=== PATIENT | male | born 1935 | race Caucasian/White ===

== ENCOUNTER 2017-05-11 10:59 | Inpatient (IN) | payer OTHER ==
[~2017-05-11] VITALS: Ht 182.9 cm; Wt 94.2 kg
[~2017-05-11 10:59] MED LIST: ASPI81TA28 PO; ATOR-22 PO; GABA-113 PO; GARL1CAP PO; MELO7.5T5 PO
[2017-05-11] MEDS ORDERED: ASPIRIN 81 MG CHEW PO STA (11:28)
[2017-05-11] MEDS ORDERED: SODIUM CHLORIDE 0.9% 500ML 500 ML IV STA (11:28)
[2017-05-11 11:40] LABS: BASO % 0.3 %; BASO ABS # 0.02 K/uL (0-0.2); COMPLETE YES; HEMATOCRIT 51.4 % (42-52); IG% 0.2 %; LYMPH % 32.9 %; LYMPH ABS # 1.98 K/uL (1.2-3.4); MEAN CELL VOLUME 96.1 fL (80-100); MEAN CORPUSCULAR HEMOGLOBIN 33.3 pg (25-34); MEAN CORPUSCULAR HGB CONC 34.6 g/dl (32-36); MEAN PLATELET VOLUME 9.7 fL (7.4-10.4); MONO % 11.8 %; NEUT % 51.8 %; PLATELET COUNT 154 K/uL (130-400); RED BLOOD COUNT 5.35 M/uL (4.7-6.1); WHITE BLOOD COUNT 6.02 K/uL (4.8-10.8)
--- NOTE | 2017-05-11 11:51 | DIAGNOSTIC IMAGING REPORT ---
CHEST ONE VIEW PORTABLE CLINICAL HISTORY: Chest Pain dyspnea COMPARISON STUDY: No previous studies for comparison. FINDINGS: stent within the thoracic aorta. Lungs are considered clear. Diaphragms are smooth. Mild emphysematous change. IMPRESSION: Mild emphysematous change. No acute process. The above report was generated using voice recognition software. It may contain grammatical, syntax or spelling errors. Electronically signed by: Jad Galaviz M.D. 05/11/2017 11:49 AM Dictated Date/Time: 05/11/2017 11:48 AM
[2017-05-11] MEDS ORDERED: DILTIAZEM BOLUS / DRIP IV STA (11:58)
[2017-05-11 11:59] LABS: BLOOD UREA NITROGEN 10 mg/dl (7-18); BUN/CREATININE RATIO 11.7 (10-20); CALCIUM 9.3 mg/dl (8.5-10.1); CARBON DIOXIDE 27 mmol/L (21-32); CHLORIDE 107 mmol/L (98-107); CREATININE 0.86 mg/dl (0.60-1.40); GLUCOSE 124 mg/dl (70-99); POTASSIUM 4.1 mmol/L (3.5-5.1); SODIUM 140 mmol/L (136-145)
[2017-05-11 12:04] LABS: CKMB/CK RATIO 3.1 (0-3.0)
[2017-05-11] MEDS ORDERED: PANT40TA PO (12:04)
[2017-05-11] MEDS ORDERED: DILTIAZEM (12:05)
[2017-05-11] MEDS ORDERED: HEPARIN 25000 UNIT/500 ML D5W ONE (12:32)
[2017-05-11] MEDS ORDERED: HEPARIN SOD 5000 UNIT/0.5 ML CARP ONE (12:32)
[2017-05-11] MEDS ORDERED: DILTIAZEM HCL 5 MG/ML 5 ML VIAL ONE (12:33)
[2017-05-11] MEDS ORDERED: DOCU-94 PO (12:47)
[2017-05-11] MEDS ORDERED: MRLP17X PO (12:47)
[2017-05-11] MEDS ORDERED: DILT120C51 PO (12:47)
[2017-05-11] MEDS ORDERED: GARL1TAB12 PO (12:47)
[2017-05-11] MEDS ORDERED: SOTALOL HCL 80 MG TAB PO STA (12:50)
[2017-05-11 13:41] LABS: PARTIAL THROMBOPLASTIN RATIO 1.1; PROTHROMBIN TIME (PATIENT) 10.9 SECONDS (9.0-12.0)
--- NOTE | 2017-05-11 13:56 | History and Physical ---
History & Physical Date & Time of Service: May 11, 2017 at 13:27 Chief Complaint: Flutter Heart Primary Care Physician: Estiven Salcido D.O. History of Present Illness Source: patient, clinic records This is an 81 y/o male with PMH of thoracic aortic aneurysm s/p repair June 2016, mild nonobstructive coronary atherosclerosis on cardiac cath 2015, recent atrial fibrillation, and other problems listed below who was sent to the ED by Dr. Nava for atrial flutter with RVR. Patient was recently in [place] ER and transferred to [facility] May 02, 2017 for atrial flutter with RVR which spontaneously converted to sinus rhythm on IV diltiazem. Per cardiology note, echo at [facility] May 02, 2017 showed ejection fraction 65% , no significant valvular abnormalities, normal left atrial size. He was seen by Dr. Nava in follow up today, at which time he reported intermittent elevated heart rate on home monitor. Heart rate was elevated to 160 bpm at home this morning. He admitted to associated "wooziness". EKG in clinic showed atrial flutter with rapid response rate 124 with left anterior fascicular block pattern. Patient was sent to ED for further evaluation and treatment. Pt denies syncope, chest pain, palpitations, SOB, MENDOZA, orthopnea, increased abdominal girth, LE edema. Denies hx of abnormal bleeding. Has not been on anticoagulation. Denies h/o CHF, DM, TIA, CVA. 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 14 Status: Chronic (3) History of atrial flutter Permanent Comment: in ER [facility] and subsequently transferred to [facility] May 02, 2017 with atrial flutter with RVR with spontaneous conversion to sinus rhythm on IV diltiazem Status: Chronic (4) Kidney stone Status: Chronic (5) LAFB (left anterior fascicular block) Status: Chronic (6) Nonobstructive atherosclerosis of coronary artery Permanent Comment: mild nonobstructive coronary atherosclerosis by cardiac catheterization 2015 Status: Chronic Surgical Problems: (1) H/O umbilical hernia repair Status: Chronic (2) History of carpal tunnel surgery Status: Chronic (3) S/P thoracic aortic aneurysm repair Permanent Comment: 06/2016; endovascular repair of thoracic aortic aneurysm June, with associated stage left carotid subclavian bypass with 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; at [facility] Status: Chronic (4) S/P tonsillectomy Status: Chronic Family History FH: cancer SON ( of leukemia) Social History Smoking Status: Former Smoker (quit in ) Alcohol Use: 2 drinks per day- wine or vodka Allergies Coded Allergies: No Known Allergies (Unverified , 05/11/17) Home Medications Scheduled Aspirin (Aspirin Ec), 81 MG PO DAILY Atorvastatin (Lipitor), 1 TAB PO DAILY Diltiazem Hcl Coated Beads (Cardizem Cd), 120 MG PO DAILY Docusate Sodium (Colace), 1 CAP PO BID Garlic (Sm Garlic), 500 MG PO BID Pantoprazole (Protonix), 40 MG PO DAILY Scheduled PRN Polyethylene (Miralax), 17 GM PO DAILY PRN for Constipation Review of Systems Ten systems reviewed and negative except as noted in HPI. Physical Exam Vital Signs Date Time Temp Pulse Resp B/P (MAP) Pulse Ox O2 Delivery O2 Flow Rate FiO2 05/11/17 13:16 63 22 130/94 96 Room Air 05/11/17 13:14 59 05/11/17 11:46 138 20 131/104 95 Room Air 05/11/17 11:25 130 05/11/17 11:24 95 Room Air 05/11/17 11:11 37.0 130 20 137/84 94 Room Air General Appearance: WD/WN, no apparent distress Head: normocephalic, atraumatic Eyes: normal inspection, sclerae normal ENT: normal ENT inspection, hearing grossly normal Neck: supple, trachea midline Respiratory/Chest: lungs clear, normal breath sounds, no respiratory distress, no accessory muscle use Cardiovascular: no murmur, + irregularly irregular (rate 120) Abdomen/GI: normal bowel sounds, non tender, soft Extremities/Musculoskelatal: normal inspection, no pedal edema Neurologic/Psych: alert, normal mood/affect, oriented x 3, + pertinent finding (grossly nonfocal) Skin: normal color, warm/dry Diagnostics Laboratory Results Results Past 24 Hours Test 05/11/17 11:25 05/11/17 12:25 05/11/17 12:31 Range/Units White Blood Count 6.02 4.8-10.8 K/uL Red Blood Count 5.35 4.7-6.1 M/uL Hemoglobin 17.8 14.0-18.0 g/dL Hematocrit 51.4 42-52 % Mean Corpuscular Volume 96.1 80-100 fL Mean Corpuscular Hemoglobin 33.3 25-34 pg Mean Corpuscular Hemoglobin Concent 34.6 32-36 g/dl Platelet Count 154 130-400 K/uL Mean Platelet Volume 9.7 7.4-10.4 fL Neutrophils (%) (Auto) 51.8 % Lymphocytes (%) (Auto) 32.9 % Monocytes (%) (Auto) 11.8 % Eosinophils (%) (Auto) 3.0 % Basophils (%) (Auto) 0.3 % Neutrophils # (Auto) 3.12 1.4-6.5 K/uL Lymphocytes # (Auto) 1.98 1.2-3.4 K/uL Monocytes # (Auto) 0.71 0.11-0.59 K/uL Eosinophils # (Auto) 0.18 0-0.5 K/uL Basophils # (Auto) 0.02 0-0.2 K/uL RDW Standard Deviation 46.7 36.4-46.3 fL RDW Coefficient of Variation 13.3 11.5-14.5 % Immature Granulocyte % (Auto) 0.2 % Immature Granulocyte # (Auto) 0.01 0.00-0.02 K/uL Sodium Level 140 136-145 mmol/L Potassium Level 4.1 3.5-5.1 mmol/L Chloride Level 107 98-107 mmol/L Carbon Dioxide Level 27 21-32 mmol/L Anion Gap 6.0 3-11 mmol/L Blood Urea Nitrogen 10 7-18 mg/dl Creatinine 0.86 0.60-1.40 mg/dl Est Creatinine Clear Calc Drug Dose 77.3 ml/min Estimated GFR () 92.9 Estimated GFR (Non- 80.2 BUN/Creatinine Ratio 11.7 10-20 Random Glucose 124 70-99 mg/dl Calcium Level 9.3 8.5-10.1 mg/dl Total Creatine Kinase 113 39-308 U/L Creatine Kinase MB 3.5 0.5-3.6 ng/ml Creatine Kinase MB Ratio 3.1 0-3.0 Troponin I < 0.015 0-0.045 ng/ml Diagnostic Radiology CHEST ONE VIEW PORTABLE CLINICAL HISTORY: Chest Pain dyspnea COMPARISON STUDY: No previous studies for comparison. FINDINGS: stent within the thoracic aorta. Lungs are considered clear. Diaphragms are smooth. Mild emphysematous change. IMPRESSION: Mild emphysematous change. No acute process. EKG atrial flutter, rate 136; zbm=[id number] Impression Assessment and Plan ATRIAL FLUTTER WITH RVR Recently diagnosed in with atrial flutter with RVR at [place] [facility] and transferred to [facility] May 02, 2017; spontaneously converted to sinus rhythm on IV diltiazem Per cardiology note, echo at [facility] May 02, 2017 showed ejection fraction 65%, no significant valvular abnormalities, normal left atrial size. Rates up to 130s in ER Troponin negative; electrolytes WNL Started in IV heparin drip in ER Per cardiology, patient will be started on Sotalol Continue IV heparin drip Will need oral anticoagulation; will defer to cardiology for choice of agent Check TSH Check repeat echo Monitor daily EKG Discussed with Dr. Nava and Dr. Sands; appreciate recommendations HISTORY OF THORACIC AORTIC ANEURYSM S/p endovascular repair of thoracic aortic aneurysm June, with associated stage left carotid subclavian bypass with 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; at [facility] with Dr. Mcknight; seen 03/21/17- imaging noted to be stable NONOBSTRUCTIVE CORONARY ATHEROSCLEROSIS Mild nonobstructive coronary atherosclerosis by cardiac catheterization 2015 Continue aspirin and statin DYSLIPIDEMIA Continue statin CODE STATUS Full code per discussion with patient on admission DVT PROPHYLAXIS On heparin drip DISPOSITION Admission to telemetry Follows with Dr. Salcido ([place]) for primary care Patient seen in collaboration with Dr. Christensen. Please see his addendum. ATTENDING PHYSICIAN ADDENDUM I have seen and examined the patient with provider Lauryn CRUZ Physical Exam: General: no acute distress, speaking comfortably in full sentences on room air. Heart rate is irregular with beats up to 130 beats per minute. There is no ventricular heave of JVD appreciated. Abdomen is soft and nontender. No abdominal bruit audible. Legs are nontender and no edema. Moist mucous membranes. Extraocular movements intact. Patient has hearing deficits of both ears but reports that this is chronic. This is a 81 y/o male with PMH of thoracic aortic aneurysm s/p repair June 2016, mild nonobstructive coronary atherosclerosis on cardiac cath 2016, history of atrial fibrillation vs atrial flutter who is not on anticoagulation at home, who has been on per oral diltiazem at home and presents to the ED for tachycardia up to the 130s. Patient reports compliance with home medications. In the emergency room patient has been hemodynamically stable and comfortable denying chest pain or palpitations. Emergency Department physician Dr. Edwards had ordered diltiazem for rate control however this was not given as discussion with moving consultant recommended anti-arrhythmic method of sotalol and heparin drip for anticoagulation instead. Patient is to be admitted to telemetry for further cardiac monitoring. Will continue home dose 81 mg aspirin unless contraindicated while on heparin drip. Will continue home dose atorvastatin. Will appreciate further cardiology recommendations on continued management of tachycardia and arrhythmia. VTE Prophylaxis VTE Risk Assessment Done? Y/N: Yes Risk Level: Moderate
--- NOTE | 2017-05-11 13:58 | CARDIOLOGY CONSULTATION ---
DATE OF CONSULTATION: 05/11/2017 REFERRING PHYSICIAN: Greg iyer. REASON FOR CONSULTATION: Atrial fibrillation. HISTORY OF PRESENT ILLNESS: The patient is an 81-year-old male with a recent complex medical history. In 2014, during a workup for an umbilical hernia repair, he was noted to have a 4.9-cm aortic aneurysm at the arch with a penetrating ulcer. He was followed by vascular surgery and then in April of 2016, he was having some shoulder and neck discomfort and a repeat CT revealed that the aneurysm had expanded to 5.9 cm and involved the left subclavian artery. The patient then underwent a complex procedure, where he had the left common carotid to left subclavian artery bypass completed and then underwent an endovascular TEVAR procedure with an endovascular sheath to repair the aortic arch aneurysm and at that time, because the stent covered the left subclavian artery, it was embolized. The patient had some leakage following that procedure, but after several months, it sealed on its own and he has been doing well ever since. It should be noted that prior to that procedure, he did undergo a cardiac catheterization that showed mild nonobstructive coronary artery disease. More recently, the patient was seen in the Emergency Department at [facility], where he was noted to have atrial flutter with RVR and was transferred to [facility], where he spontaneously converted to normal sinus rhythm. He was then discharged home not on anticoagulation or antiarrhythmic medications. He was seen by my partner this morning following discharge from that most recent hospital admission. He was noted to have high heart rates and was found to be in atrial flutter again with RVR. The morphology here in the Emergency Department suggests a slower atrial flutter with 2:1 conduction. The patient is fairly asymptomatic and remains active, although recently with high heart rates, he has noticed some dizziness and wooziness. He has had no syncope. He denies progressive shortness of breath or chest pain. He has had no history of bleeding. He denies melena or hematochezia. He has had no hematuria. ALLERGIES: BACTRIM. PAST MEDICAL HISTORY: As outlined above, the patient has a complex history of a thoracic aortic aneurysm repair. He also has a history of dyslipidemia and abdominal aortic aneurysm, which is being followed and renal calculi. He has no history of diabetes, strokes or hypertension. SOCIAL HISTORY: He is a former smoker, quitting in 1965. FAMILY MEDICAL HISTORY: Noncontributory. REVIEW OF SYSTEMS: A 10-point review of systems is negative except for the history of chief complaint. PHYSICAL EXAMINATION: GENERAL: He is alert and oriented, no acute distress. VITAL SIGNS: Blood pressure is 130/100, pulse is irregular at 138 beats per minute. He is afebrile. HEENT: Normocephalic. Pupils are equal and reactive to light. Extraocular muscles are intact bilaterally. NECK: The neck veins are flat. Carotids have good upstrokes bilaterally without bruits. Thyroid is nonpalpable. RESPIRATORY: Breath sounds equal bilaterally and clear to auscultation. CARDIOVASCULAR: Heart has an irregular rhythm. Normal S1 and S2. No S3 or S4. No cardiac rubs or murmurs. GASTROINTESTINAL: Abdomen is soft and nontender without organomegaly. EXTREMITIES: Free of edema, digit clubbing, or cyanosis. NEUROLOGIC: Grossly intact. SKIN: Warm to touch. LYMPH NODES: Negative to palpation. IMPRESSION: 1. Paroxysmal atrial flutter with rapid ventricular response. 2. Status post endovascular stent for a thoracic aortic aneurysm at the arch with subclavian involvement, status post left carotid to subclavian bypass and embolization of proximal left subclavian artery. RECOMMENDATIONS: We will start the patient on sotalol. I will give him a dose of 80 mg here in the Emergency Department and then follow up with 80 mg twice daily. The patient will remain on the learning disabilities specialist until at least 6 doses of sotalol are given. He has been started on heparin in the Emergency Department. We discussed anticoagulation including the risk and benefit. We also discussed possible options including Coumadin versus the newer brand factor X inhibitors. I feel for this patient that he would do better on Coumadin with coagulation clinic managing this medication and I think that is where we should start. He will have an echocardiogram this admission. Further evaluation and treatment following the above. NEVA
[2017-05-11 14:04] VITALS: BP 126/83; PULSE 58; TEMP 36.7; O2SAT 96; Ht 182.9 cm; Wt 94.2 kg
[2017-05-11] MEDS ORDERED: HEPARIN 25,000 UNIT/500ML D5W 500 ML IV PRN (14:30)
[2017-05-11] MEDS: HEPARIN 25,000 UNIT/500ML D5W 500 ML IV PRN (14:49)
[2017-05-11 15:16] LABS: THYROID STIMULATING HORMONE 2.18 uIu/ml (0.300-4.500)
--- NOTE | 2017-05-11 15:37 | EMERGENCY ROOM VISIT NOTE ---
History Report prepared by Rodolfo: Osei Xavier Under the Supervision of: Dr. Pawan Edwards D.O. First contact with patient: 11:18 Chief Complaint: IRREGULAR HEARTBEAT Stated Complaint: FLUTTER HEART History of Present Illness The patient is an 81 year old male who presents to the Emergency Room with complaints of an irregular heart rate occurring earlier today. The patient was at cardiology, and he had an irregular heart rate, so they dent him to the ED for evaluation. The patient states that he has a history of an aneurysm, and he was recently in the hospital, and he was discharged a week ago. He states that he has been feeling nauseous and weak, and he has felt weak for the past 3-4 months. He states that he takes aspirin and Cardizem. Pt denies headache, change in vision, fevers, chest pain, shortness of breath, vomiting, diarrhea, pain with urination, and melena. Source of History: patient Onset: earlier today Position: other (global) Quality: other (irregular hear rate) Timing: constant Associated Symptoms: + nausea, + weakness, No chest pain, No SOB Review of Systems See HPI for pertinent positives & negatives. A total of 10 systems reviewed and were otherwise negative. Past Medical & Surgical Medical Problems: (1) Atrial flutter with rapid ventricular response (2) BPH (benign prostatic hyperplasia) (3) H/O poliomyelitis (4) History of atrial flutter (5) Kidney stone (6) LAFB (left anterior fascicular block) (7) Nonobstructive atherosclerosis of coronary artery Surgical Problems: (1) H/O umbilical hernia repair (2) History of carpal tunnel surgery (3) S/P thoracic aortic aneurysm repair (4) S/P tonsillectomy Family History FH: cancer SON ( of leukemia) Social History Smoking Status: Former Smoker Marital Status: Occupation Status: retired Current/Historical Medications Scheduled Aspirin (Aspirin Ec), 81 MG PO DAILY Atorvastatin (Lipitor), 1 TAB PO DAILY Diltiazem Hcl Coated Beads (Cardizem Cd), 120 MG PO DAILY Docusate Sodium (Colace), 1 CAP PO BID Garlic (Sm Garlic), 500 MG PO BID Pantoprazole (Protonix), 40 MG PO DAILY Scheduled PRN Polyethylene (Miralax), 17 GM PO DAILY PRN for Constipation Allergies Coded Allergies: No Known Allergies (Unverified , 05/11/17) Physical Exam Vital Signs Date Time Temp Pulse Resp B/P (MAP) Pulse Ox O2 Delivery O2 Flow Rate FiO2 05/11/17 13:16 63 22 130/94 96 Room Air 05/11/17 13:14 59 05/11/17 11:46 138 20 131/104 95 Room Air 05/11/17 11:25 130 05/11/17 11:24 95 Room Air 05/11/17 11:11 37.0 130 20 137/84 94 Room Air Physical Exam GENERAL:Sitting up in bed, disheveled, no distress, non-toxic EYE EXAM: normal conjunctiva OROPHARYNX: no exudate, no erythema, lips, buccal mucosa, and tongue normal and mucous membranes are moist NECK: supple, no nuchal rigidity, no adenopathy, non-tender LUNGS: Clear to auscultation. Normal chest wall mechanics HEART: Tachycardic, S1 normal and S2 normal ABDOMEN: abdomen soft, non-tender, normo-active bowel sounds, no masses, no rebound or guarding. BACK: Back is symmetrical on inspection and there is no deformity, no midline tenderness, no CVA tenderness. SKIN: no rashes and no bruising UPPER EXTREMITIES: upper extremities are grossly normal. LOWER EXTREMITIES: Calves equal bilaterally. No pitting edema. NEURO EXAM: Normal sensorium, cranial nerves II-XII grossly intact, normal speech, no gross weakness of arms, no gross weakness of legs. Gross sensation intact. Medical Decision & Procedures ER Provider Diagnostic Interpretation: Radiology results as stated below per my review and the radiologist's interpretation: CHEST ONE VIEW PORTABLE CLINICAL HISTORY: Chest Pain dyspnea COMPARISON STUDY: No previous studies for comparison. FINDINGS: stent within the thoracic aorta. Lungs are considered clear. Diaphragms are smooth. Mild emphysematous change. IMPRESSION: Mild emphysematous change. No acute process. The above report was generated using voice recognition software. It may contain grammatical, syntax or spelling errors. Electronically signed by: Jad Galaviz M.D. 05/11/2017 11:49 AM Dictated Date/Time: 05/11/2017 11:48 AM Laboratory Results 05/11/17 11:25 Red Blood Count 5.35, Mean Corpuscular Volume 96.1, Mean Corpuscular Hemoglobin 33.3, Mean Corpuscular Hemoglobin Concent 34.6, Mean Platelet Volume 9.7, Neutrophils (%) (Auto) 51.8, Lymphocytes (%) (Auto) 32.9, Monocytes (%) (Auto) 11.8, Eosinophils (%) (Auto) 3.0, Basophils (%) (Auto) 0.3, Neutrophils # (Auto ) 3.12, Lymphocytes # (Auto) 1.98, Monocytes # (Auto) 0.71, Eosinophils # (Auto ) 0.18, Basophils # (Auto) 0.02 05/11/17 11:25 Test 05/11/17 11:25 White Blood Count 6.02 K/uL (4.8-10.8) Red Blood Count 5.35 M/uL (4.7-6.1) Hemoglobin 17.8 g/dL (14.0-18.0) Hematocrit 51.4 % (42-52) Mean Corpuscular Volume 96.1 fL (80-100) Mean Corpuscular Hemoglobin 33.3 pg (25-34) Mean Corpuscular Hemoglobin Concent 34.6 g/dl (32-36) Platelet Count 154 K/uL (130-400) Mean Platelet Volume 9.7 fL (7.4-10.4) Neutrophils (%) (Auto) 51.8 % Lymphocytes (%) (Auto) 32.9 % Monocytes (%) (Auto) 11.8 % Eosinophils (%) (Auto) 3.0 % Basophils (%) (Auto) 0.3 % Neutrophils # (Auto) 3.12 K/uL (1.4-6.5) Lymphocytes # (Auto) 1.98 K/uL (1.2-3.4) Monocytes # (Auto) 0.71 K/uL (0.11-0.59) Eosinophils # (Auto) 0.18 K/uL (0-0.5) Basophils # (Auto) 0.02 K/uL (0-0.2) RDW Standard Deviation 46.7 fL (36.4-46.3) RDW Coefficient of Variation 13.3 % (11.5-14.5) Immature Granulocyte % (Auto) 0.2 % Immature Granulocyte # (Auto) 0.01 K/uL (0.00-0.02) Prothrombin Time 10.9 SECONDS (9.0-12.0) Prothromb Time International Ratio 1.0 (0.9-1.1) Activated Partial Thromboplast Time 29.1 SECONDS (21.0-31.0) Partial Thromboplastin Ratio 1.1 Anion Gap 6.0 mmol/L (3-11) Est Creatinine Clear Calc Drug Dose 77.3 ml/min Estimated GFR () 92.9 Estimated GFR (Non- 80.2 BUN/Creatinine Ratio 11.7 (10-20) Calcium Level 9.3 mg/dl (8.5-10.1) Total Creatine Kinase 113 U/L (39-308) Creatine Kinase MB 3.5 ng/ml (0.5-3.6) Creatine Kinase MB Ratio 3.1 (0-3.0) Troponin I < 0.015 ng/ml (0-0.045) Thyroid Stimulating Hormone (TSH) 2.180 uIu/ml (0.300-4.500) Free Thyroxine 1.06 ng/dl (0.80-1.60) Laboratory results per my review. Medications Administered Medications (Trade) Dose Ordered Sig/Shanice Route Start Time Stop Time Status Last Admin Dose Admin Sodium Chloride 500 ml @ 999 mls/hr Q31M STAT IV 05/11/17 11:28 05/11/17 11:58 DC 05/11/17 11:43 999 MLS/HR Aspirin (Aspirin Chew) 324 mg NOW STAT PO 05/11/17 11:28 05/11/17 11:29 DC 05/11/17 11:42 324 MG Heparin Sodium/ Dextrose (Heparin 25,000 Unit/500ml D5W) 25,000 unit STK-MED ONCE .ROUTE 05/11/17 12:32 05/11/17 12:33 DC 05/11/17 13:15 25,000 UNIT Heparin Sodium (Porcine) (Heparin Sq 5000 Unit/0.5ml) 5,000 unit STK-MED ONCE .ROUTE 05/11/17 12:32 05/11/17 12:33 DC 05/11/17 13:13 4,000 UNIT Sotalol HCl (Betapace Tab) 80 mg NOW STAT PO 05/11/17 12:50 05/11/17 12:51 DC 05/11/17 12:56 80 MG ECG Indication: other (irregular heart beat) Rate (beats per minute): 136 Rhythm: other (Atrail rhythm) Findings: left axis deviation, other (Inferior Q waves, intraventricular conduction delay) ED Course ED COURSE: Vital signs were reviewed and showed tachycardia. The patients medical record was reviewed The above diagnostic studies were performed and reviewed. ED treatments and interventions as stated above. 1118: The patient was evaluated in room B3. A complete history and physical examination was performed. 1128: Aspirin 324mg PO, Sodium Chloride 500 ml @ 999 mls/hr IV 1154: I discussed the patient's case with Dr. Nava, Cardiology, and he states that the patient should be put on Cardizem and heparin bolus 1232: Heparin Sq 4000unit/ 0.5ml IV, Heparin 81044 unit/500ml D5W IV 1239: I discussed the patient's case with Renetta Combs PA-C, and she is going to evaluate the patient for further treatment. 1245: Upon reevaluation, the patient is resting.I discussed my findings with the patient and he understands and agrees with the treatment plan. Based on the patients age, coexisting illnesses, exam and lab findings the decision to treat as an inpatient was made. The patient remained stable while under my care. The patient will be evaluated for further management. Medical Decision Differential diagnoses includes but is not limited to acute coronary syndrome, myocardial infarction, pericarditis, pulmonary embolus, aortic dissection, pneumonia, pneumothorax, musculoskeletal, shingles, esophageal. Patient is an 81-year-old male who presents the ER from radiology's office in atrial flutter at a rate of 136. Patient denies any chest pain or shortness breath. He notes that he has felt weak for the past several weeks. He is completely neurologically intact. EKG does support a likely atrial flutter. Patient was given a bolus normal saline. Heart rate trended down into the low 100s. Discussed with cardiology. They recommended heparin which I felt was reasonable. Patient declined any recent surgeries, trauma, hematuria, blood in stool, hematemesis, hemoptysis or previous brain bleeds. Patient was updated in regards to risk of heparin. Heparin drip and bolus was started. Case was discussed with internal medicine. He is evaluated by cardiology in the ER. He was admitted for further workup. Medication Reconcilliation Current Medication List: was personally reviewed by me Blood Pressure Screening Patient's blood pressure: Normal blood pressure Consults Time Called: 1150 Consulting Physician: Dr. Nava, Cardiology Returned Call: 115 I discussed the patient's case with Dr. Nava, Cardiology, and he states that the patient should be put on Cardizem and heparin bolus Additional Consults: Time Called: 1235 Consulted Physician: Renetta Combs PA-C Returned Call: 1230 Additional Comments: I discussed the patient's case with Renetta Combs PA-C, and she is going to evaluate the patient for further treatment. Impression Primary Impression: Atrial flutter with rapid ventricular response Critical Care I have personally spent 35 minutes of critical care time in the direct management of this patient. This includes bedside care, interpretation of diagnostic studies, and testing, discussion with consultants, patient, and family members, and other required patient management activities. This 35 minutes is in excess of all separately billable procedures. Scribe Attestation The scribe's documentation has been prepared under my direction and personally reviewed by me in its entirety. I confirm that the note above accurately reflects all work, treatment, procedures, and medical decision making performed by me. Departure Information Dispostion Being Evaluated By Hospitalist Estiven Murphy D.O. (PCP) Patient Instructions [facility]
[2017-05-11] MEDS ORDERED: PERFLUTREN LIPID MICROSPHERE (DEFINITY) IV ONE (15:45)
[2017-05-11 16:05] VITALS: BP 121/81; PULSE 59; TEMP 36.5; O2SAT 95
[2017-05-11 19:49] VITALS: BP 116/73; PULSE 61; TEMP 36.9; O2SAT 93
[2017-05-11 20:38] LABS: HEMATOCRIT 46.7 % (42-52); MEAN CELL VOLUME 96.3 fL (80-100); MEAN CORPUSCULAR HEMOGLOBIN 32.6 pg (25-34); MEAN CORPUSCULAR HGB CONC 33.8 g/dl (32-36); MEAN PLATELET VOLUME 9.5 fL (7.4-10.4); PLATELET COUNT 150 K/uL (130-400); RED BLOOD COUNT 4.85 M/uL (4.7-6.1); WHITE BLOOD COUNT 5.85 K/uL (4.8-10.8)
[2017-05-11] MEDS: SOTALOL HCL 80 MG TAB PO SCH (20:41)
[2017-05-11 21:26] LABS: PARTIAL THROMBOPLASTIN RATIO 2.1
[2017-05-11 23:56] VITALS: BP 109/73; PULSE 57; TEMP 36.8; O2SAT 94
[2017-05-12 04:19] VITALS: BP 94/54; PULSE 54; TEMP 36.5; O2SAT 96
[2017-05-12 05:29] LABS: BASO % 0.3 %; BASO ABS # 0.02 K/uL (0-0.2); COMPLETE YES; EOS % 4.9 %; HEMATOCRIT 42.8 % (42-52); IG% 0.5 %; LYMPH % 25.6 %; LYMPH ABS # 1.58 K/uL (1.2-3.4); MEAN CORPUSCULAR HEMOGLOBIN 33.2 pg (25-34); MEAN CORPUSCULAR HGB CONC 34.6 g/dl (32-36); MEAN PLATELET VOLUME 9.8 fL (7.4-10.4); MONO % 13.9 %; NEUT % 54.8 %; PLATELET COUNT 133 K/uL (130-400); RED BLOOD COUNT 4.46 M/uL (4.7-6.1); WHITE BLOOD COUNT 6.18 K/uL (4.8-10.8)
[2017-05-12 05:55] LABS: BUN/CREATININE RATIO 17.3 (10-20); CALCIUM 8.3 mg/dl (8.5-10.1); CREATININE 0.75 mg/dl (0.60-1.40); POTASSIUM 3.9 mmol/L (3.5-5.1)
[2017-05-12 05:57] LABS: INR 1.1 (0.9-1.1); PARTIAL THROMBOPLASTIN RATIO 2.3; PROTHROMBIN TIME (PATIENT) 11.4 SECONDS (9.0-12.0)
[2017-05-12] MEDS: ASPIRIN 81 MG ECTAB PO SCH (07:44)
[2017-05-12] MEDS: HEPARIN 25,000 UNIT/500ML D5W 500 ML IV PRN (07:44)
[2017-05-12] MEDS: ATORVASTATIN 20 MG TAB PO SCH (07:45)
[2017-05-12] MEDS: SOTALOL HCL 80 MG TAB PO SCH ×2 (07:45→20:42)
[2017-05-12 07:52] VITALS: BP 111/65; PULSE 86; TEMP 36.8; O2SAT 98
[2017-05-12] MEDS ORDERED: WARFARIN SOD 5 MG TAB PO ONE (11:15)
--- NOTE | 2017-05-12 11:50 | PROGRESS NOTE ---
DATE: 05/12/2017 FOLLOWUP VISIT SUBJECTIVE: The patient is an 81-year-old male admitted with atrial flutter/fibrillation and RVR. Yesterday, he was started on sotalol and converted to a sinus rhythm. He has no new complaints. Review of his EKG today indicates no significant QT interval lengthening. OBJECTIVE: VITAL SIGNS: Blood pressure is 110/65. Pulse is regular at 55 beats per minute. He is afebrile. HEENT: He is normocephalic. Pupils are equal and reactive to light. Extraocular muscles are intact bilaterally. NECK: The neck veins are flat. Carotids have good upstrokes bilaterally without bruits. Thyroid is nonpalpable. RESPIRATORY: Breath sounds equal bilaterally and clear to auscultation. CARDIOVASCULAR: Heart has a regular rhythm. Normal S1 and S2. No S3 or S4. No cardiac rubs or murmurs. GASTROINTESTINAL: Abdomen is soft and nontender without organomegaly. EXTREMITIES: Free of edema, digit clubbing, or cyanosis. NEUROLOGIC: Grossly intact. SKIN: Warm to touch. LYMPH NODES: Negative to palpation. LABORATORY DATA: Creatinine is 0.75. Potassium is 3.9. Hemoglobin is 14.8. INR is 1.1. IMPRESSION: 1. Paroxysmal atrial flutter/fibrillation. 2. Status post endovascular stent for thoracic aortic aneurysm at the arch with subclavian involvements, status post left carotid to subclavian bypass and embolization of the proximal left subclavian artery. RECOMMENDATIONS: We will continue the sotalol at 80 mg twice daily. He has had 3 doses and the plan is for him to have a total of 6 before discharge. We will start him on warfarin today.
[2017-05-12 11:58] VITALS: BP 111/63; PULSE 84; TEMP 36.9; O2SAT 96
--- NOTE | 2017-05-12 13:59 | Progress Note ---
Medicine Progress Note Date & Time of Visit: May 12, 2017 at 13:49. Subjective tolerating PO denies pain lightheadedness and dizziness from yesterday is resolved Objective Last 8 Hrs Date Time Temp Pulse Resp B/P (MAP) Pulse Ox O2 Delivery O2 Flow Rate FiO2 05/12/17 12:00 Room Air 05/12/17 11:58 36.9 84 18 111/63 (79) 96 05/12/17 08:00 Room Air 05/12/17 07:52 36.8 86 16 111/65 (80) 98 Physical Exam: GEN: WNWD, in no acute distress, alert and appropriate, L[place] HEENT: NC/AT, pupils are equal and round bilaterally, normal sclerae, MMM CARDIO: reg rate, S1/2 heard without m/g/r, 2+ pulses (radial), no edema LUNGS: CTA bilaterally, no crackles, rales or wheezes, good diaphragmatic excursion ABD: soft, non-tender, non-distended, no rebound or guarding, +BS EXTREMITY: RP and DP palpable 2+ bilat, no LE swelling or edema, extremities are warm and well-perfused NEURO: CN 2-12 grossly intact, well-developed musculature, no focal deficits. MUSC: 5/5 strength throughout, no focal deficits SKIN: warm and dry, tanned. Laboratory Results: 05/12/17 05:11 Red Blood Count 4.46, Mean Corpuscular Volume 96.0, Mean Corpuscular Hemoglobin 33.2, Mean Corpuscular Hemoglobin Concent 34.6, Mean Platelet Volume 9.8, Neutrophils (%) (Auto) 54.8, Lymphocytes (%) (Auto) 25.6, Monocytes (%) (Auto) 13.9, Eosinophils (%) (Auto) 4.9, Basophils (%) (Auto) 0.3, Neutrophils # (Auto ) 3.39, Lymphocytes # (Auto) 1.58, Monocytes # (Auto) 0.86, Eosinophils # (Auto ) 0.30, Basophils # (Auto) 0.02 05/12/17 05:11 Test 05/11/17 11:25 05/12/17 05:11 Total Creatine Kinase 113 U/L (39-308) Creatine Kinase MB 3.5 ng/ml (0.5-3.6) Creatine Kinase MB Ratio 3.1 (0-3.0) Troponin I < 0.015 ng/ml (0-0.045) Thyroid Stimulating Hormone (TSH) 2.180 uIu/ml (0.300-4.500) Free Thyroxine 1.06 ng/dl (0.80-1.60) White Blood Count 6.18 K/uL (4.8-10.8) Red Blood Count 4.46 M/uL (4.7-6.1) Hemoglobin 14.8 g/dL (14.0-18.0) Hematocrit 42.8 % (42-52) Mean Corpuscular Volume 96.0 fL (80-100) Mean Corpuscular Hemoglobin 33.2 pg (25-34) Mean Corpuscular Hemoglobin Concent 34.6 g/dl (32-36) Platelet Count 133 K/uL (130-400) Mean Platelet Volume 9.8 fL (7.4-10.4) Neutrophils (%) (Auto) 54.8 % Lymphocytes (%) (Auto) 25.6 % Monocytes (%) (Auto) 13.9 % Eosinophils (%) (Auto) 4.9 % Basophils (%) (Auto) 0.3 % Neutrophils # (Auto) 3.39 K/uL (1.4-6.5) Lymphocytes # (Auto) 1.58 K/uL (1.2-3.4) Monocytes # (Auto) 0.86 K/uL (0.11-0.59) Eosinophils # (Auto) 0.30 K/uL (0-0.5) Basophils # (Auto) 0.02 K/uL (0-0.2) RDW Standard Deviation 46.6 fL (36.4-46.3) RDW Coefficient of Variation 13.3 % (11.5-14.5) Immature Granulocyte % (Auto) 0.5 % Immature Granulocyte # (Auto) 0.03 K/uL (0.00-0.02) Prothrombin Time 11.4 SECONDS (9.0-12.0) Prothromb Time International Ratio 1.1 (0.9-1.1) Activated Partial Thromboplast Time 60.4 SECONDS (21.0-31.0) Partial Thromboplastin Ratio 2.3 Anion Gap 3.0 mmol/L (3-11) Est Creatinine Clear Calc Drug Dose 88.7 ml/min Estimated GFR () 98.3 Estimated GFR (Non- 84.8 BUN/Creatinine Ratio 17.3 (10-20) Calcium Level 8.3 mg/dl (8.5-10.1) Total Bilirubin 0.9 mg/dl (0.2-1) Aspartate Amino Transf (AST/SGOT) 16 U/L (15-37) Alanine Aminotransferase (ALT/SGPT) 21 U/L (12-78) Alkaline Phosphatase 51 U/L (45-117) Total Protein 6.2 gm/dl (6.4-8.2) Albumin 3.1 gm/dl (3.4-5.0) Globulin 3.1 gm/dl (2.5-4.0) Albumin/Globulin Ratio 1.0 (0.9-2) Last 24 Hours Test 05/11/17 20:22 05/12/17 05:11 White Blood Count 5.85 K/uL 6.18 K/uL Red Blood Count 4.85 M/uL 4.46 M/uL Hemoglobin 15.8 g/dL 14.8 g/dL Hematocrit 46.7 % 42.8 % Mean Corpuscular Volume 96.3 fL 96.0 fL Mean Corpuscular Hemoglobin 32.6 pg 33.2 pg Mean Corpuscular Hemoglobin Concent 33.8 g/dl 34.6 g/dl RDW Standard Deviation 47.0 fL 46.6 fL RDW Coefficient of Variation 13.3 % 13.3 % Platelet Count 150 K/uL 133 K/uL Mean Platelet Volume 9.5 fL 9.8 fL Activated Partial Thromboplast Time 54.3 SECONDS 60.4 SECONDS Partial Thromboplastin Ratio 2.1 2.3 Neutrophils (%) (Auto) 54.8 % Lymphocytes (%) (Auto) 25.6 % Monocytes (%) (Auto) 13.9 % Eosinophils (%) (Auto) 4.9 % Basophils (%) (Auto) 0.3 % Neutrophils # (Auto) 3.39 K/uL Lymphocytes # (Auto) 1.58 K/uL Monocytes # (Auto) 0.86 K/uL Eosinophils # (Auto) 0.30 K/uL Basophils # (Auto) 0.02 K/uL Immature Granulocyte % (Auto) 0.5 % Immature Granulocyte # (Auto) 0.03 K/uL Prothrombin Time 11.4 SECONDS Prothromb Time International Ratio 1.1 Sodium Level 141 mmol/L Potassium Level 3.9 mmol/L Chloride Level 109 mmol/L Carbon Dioxide Level 29 mmol/L Anion Gap 3.0 mmol/L Blood Urea Nitrogen 13 mg/dl Creatinine 0.75 mg/dl Est Creatinine Clear Calc Drug Dose 88.7 ml/min Estimated GFR () 98.3 Estimated GFR (Non- 84.8 BUN/Creatinine Ratio 17.3 Random Glucose 106 mg/dl Calcium Level 8.3 mg/dl Total Bilirubin 0.9 mg/dl Aspartate Amino Transf (AST/SGOT) 16 U/L Alanine Aminotransferase (ALT/SGPT) 21 U/L Alkaline Phosphatase 51 U/L Total Protein 6.2 gm/dl Albumin 3.1 gm/dl Globulin 3.1 gm/dl Albumin/Globulin Ratio 1.0 Assessment & Plan 81 yo M admitted with aflutter with RVR 1. Paroxysmal atrial flutter with rapid ventricular response- Dilt given in ER with spontaneous conversion to SR. cont Sotalol, heparin. Started on Coumadin. No heparin bridge needed but will cont while hospitalized. Apprec Cardiology recs. 2. Status post endovascular stent for a thoracic aortic aneurysm at the arch with subclavian involvement, status post left carotid to subclavian bypass and embolization of proximal left subclavian artery. 3. Non obstructive CAD-cont ASA and statin FULL CODE DVT prophy-heparin drip/coumadin Dispo-to home in next 1-2 days DO Greg Benoit Hospitalist Consultants: Cardiology Current Inpatient Medications: Current Inpatient Medications Medications (Trade) Dose Ordered Sig/Shanice Route Start Time Stop Time Status Last Admin Dose Admin Sotalol HCl (Betapace Tab) 80 mg BID PO 05/11/17 21:00 06/10/17 20:59 05/12/17 07:45 80 MG Atorvastatin Calcium (Lipitor Tab) 20 mg QAM PO 05/12/17 09:00 06/11/17 08:59 05/12/17 07:45 20 MG Aspirin (Ecotrin Tab) 81 mg QAM PO 05/12/17 09:00 06/11/17 08:59 05/12/17 07:44 81 MG Heparin Sodium/ Dextrose 500 ml @ 30 mls/hr [id number] PRN IV 05/11/17 14:45 06/10/17 14:44 05/12/17 07:44 30 MLS/HR Warfarin Sodium (Coumadin Tab) 5 mg DAILY@16 PO 05/13/17 16:00 06/12/17 15:59
--- NOTE | 2017-05-12 15:40 | ECHOCARDIOGRAM REPORT ---
*NOTICE TO RECEIVING [employer] This information is strictly Confidential and protected under [place] law. [place] law prohibits you from making any further disclosure of this information unless further disclosure is expressly permitted by the written consent of the person to whom it pertains or is authorized by law. A general authorization for the release of medical or other information is not sufficient for this purpose. Hospital accepts no responsibility if the information is made available to any other person, INCLUDING THE PATIENT. Interpretation Summary * Name: JESUS COOPER V Study Date: 05/11/2017 02:50 PM BP: 130/94 mmHg * Patient Location: C.2T\S\E221\S\1 HR: 57 * : 1935 (M/d/yyy) Gender: Male Height: 72 in * Age: 81 yrs Ethnicity: CA Weight: 206 lb * Ordering Physician: Estiven Sands DO * Performed By: Mimi Smith * * Reason For Study: A-FIB * BSA: 2.2 m2 * -- Conclusions -- * The left ventricle is normal in size. * There is moderate concentric left ventricular hypertrophy. * Ejection Fraction = 55-60%. * The right ventricular systolic function is normal. * The left atrial size is normal. * Right atrial size is normal. * The aortic root and proximal ascending aorta are normal sized. * No significant valvular pathology. Procedure Details * A complete two-dimensional transthoracic echocardiogram was performed (2D, M-mode, Doppler and color flow Doppler). * A contrast injection of Definity was performed to improve assessment of LV function. * Contrast was injected into an intravenous site in the right arm. * One vial of Definity ultrasound contrast was diluted in normal saline to a total volume of 10 ml. A total of '3' ml of solution was administered during imaging. * Lot # [id number] of Definity utilized for procedure. * Expiration date 05/20. Left Ventricle * The left ventricle is normal in size. * There is moderate concentric left ventricular hypertrophy. * Ejection Fraction = 55-60%. * The left ventricular wall motion is normal. Right Ventricle * The right ventricle is normal size. * The right ventricular systolic function is normal. Atria * The left atrial size is normal. * Right atrial size is normal. * No ASD detected; PFO is not assessed. Mitral Valve * The mitral valve anatomy is normal. * Significant mitral regurgitation is absent. Tricuspid Valve * The tricuspid valve is not well visualized, but is grossly normal. * Significant tricuspid regurgitation is absent. Aortic Valve * The aortic valve is tricuspid. The leaflet thickness if normal. There is no aortic stenosis, and no significant insufficiency. * The aortic valve opens well. * There is no significant aortic regurgitation. Pulmonic Valve * The pulmonic valve is not well visualized. Great Vessels * The aortic root and proximal ascending aorta are normal sized. MMode 2D Measurements and Calculations IVSd 1.6 cm IVSs 2.1 cm LVIDd 3.0 cm LVIDs 2.2 cm LVPWd 1.7 cm LVPWs 1.5 cm IVS/LVPW 0.94 FS 28.6 % EDV(Teich) 35.4 ml ESV(Teich) 15.3 ml EF(Teich) 56.6 % EDV(cubed) 27.4 ml ESV(cubed) 10.0 ml EF(cubed) 63.5 % % IVS thick 30.9 % % LVPW thick -13.16 % LV mass(C)d 186.3 grams LV mass(C)dI 86.4 grams/m\S\2 LV mass(C)s 147.4 grams LV mass(C)sI 68.3 grams/m\S\2 CO(Teich) 1.3 l/min CI(Teich) 0.62 l/min/m\S\2 SV(Teich) 20.0 ml SI(Teich) 9.3 ml/m\S\2 CO(cubed) 1.2 l/min CI(cubed) 0.54 l/min/m\S\2 SV(cubed) 17.4 ml SI(cubed) 8.1 ml/m\S\2 ACS 1.7 cm asc Aorta Diam 4.2 cm LVOT diam 2.2 cm LVOT area 4.0 cm\S\2 LVAd ap4 25.0 cm\S\2 LVLd ap4 7.4 cm EDV(MOD-sp4) 68.6 ml LVAs ap4 15.8 cm\S\2 LVLs ap4 6.9 cm ESV(MOD-sp4) 29.4 ml EF(MOD-sp4) 57.1 % LVAd ap2 29.8 cm\S\2 LVLd ap2 7.9 cm EDV(MOD-sp2) 92.9 ml LVAs ap2 17.6 cm\S\2 LVLs ap2 6.5 cm ESV(MOD-sp2) 39.2 ml EF(MOD-sp2) 57.8 % CO(MOD-sp4) 2.6 l/min CI(MOD-sp4) 1.2 l/min/m\S\2 SV(MOD-sp4) 39.2 ml SI(MOD-sp4) 18.2 ml/m\S\2 CO(MOD-sp2) 3.6 l/min CI(MOD-sp2) 1.7 l/min/m\S\2 SV(MOD-sp2) 53.7 ml SI(MOD-sp2) 24.9 ml/m\S\2 Doppler Measurements and Calculations MV E max shandra 78.1 cm/sec MV A max shandra 73.7 cm/sec MV E/A 1.1 MV dec time 0.26 sec Ao V2 max 113.4 cm/sec Ao max PG 5.1 mmHg Ao max PG (full) 1.4 mmHg BRYAN(V,A) 3.4 cm\S\2 BRYAN(V,D) 3.4 cm\S\2 LV V1 max PG 3.7 mmHg LV V1 max 96.5 cm/sec PA V2 max 69.4 cm/sec PA max PG 1.9 mmHg PI end-d shandra 77.4 cm/sec TR max shandra 232.1 cm/sec
[2017-05-12 15:47] VITALS: BP 110/73; PULSE 47; TEMP 36.9; O2SAT 94
[2017-05-12 19:13] VITALS: BP 111/66; PULSE 50; TEMP 36.8; O2SAT 95
[2017-05-12 23:15] VITALS: BP 136/82; PULSE 48; TEMP 36.5; O2SAT 97
[2017-05-13] VITALS (8 sets, daily range): BP systolic 104–117; BP diastolic 63–71; PULSE 45–63; TEMP 36.4–37; O2SAT 95–97
[2017-05-13] MEDS: HEPARIN 25,000 UNIT/500ML D5W 500 ML IV PRN ×2 (00:33→16:36)
[2017-05-13 07:16] LABS: HEMATOCRIT 47.6 % (42-52); MEAN CELL VOLUME 96.2 fL (80-100); MEAN CORPUSCULAR HEMOGLOBIN 32.9 pg (25-34); MEAN CORPUSCULAR HGB CONC 34.2 g/dl (32-36); PLATELET COUNT 134 K/uL (130-400); RED BLOOD COUNT 4.95 M/uL (4.7-6.1); WHITE BLOOD COUNT 5.15 K/uL (4.8-10.8)
[2017-05-13 07:36] LABS: PARTIAL THROMBOPLASTIN RATIO 2.7
[2017-05-13 07:51] LABS: BUN/CREATININE RATIO 15.8 (10-20); CALCIUM 8.7 mg/dl (8.5-10.1); CREATININE 0.77 mg/dl (0.60-1.40)
[2017-05-13] MEDS: ATORVASTATIN 20 MG TAB PO SCH (08:22)
[2017-05-13] MEDS: SOTALOL HCL 80 MG TAB PO SCH ×2 (08:22→21:02)
[2017-05-13] MEDS: ASPIRIN 81 MG ECTAB PO SCH (08:23)
[2017-05-13] MEDS ORDERED: NURSING VERBAL MED ORDER ONE (11:45)
[2017-05-13] MEDS ORDERED: POLYETHYLENE (MIRALAX) 17 GM PACK PO PRN (12:15)
--- NOTE | 2017-05-13 13:57 | PROGRESS NOTE ---
DATE: 05/13/2017 FOLLOWUP VISIT SUBJECTIVE: The patient is an 81-year-old with atrial flutter/fibrillation and RVR. He was admitted for the start of sotalol as well as Coumadin. He was started on sotalol 80 mg b.i.d. and converted to normal sinus rhythm, but was bradycardic late last evening and the dosage was dropped to 40 mg b.i.d. His heart rates have improved today. He remains in a sinus mechanism. His INR today is 1.1. OBJECTIVE: GENERAL: He is alert and oriented in no acute distress. VITAL SIGNS: Blood pressure is 115/70, pulse is regular at 60 beats per minute. HEENT: Normocephalic. Pupils are equal and reactive to light. Extraocular muscles are intact bilaterally. NECK: The neck veins are flat. Carotids have good upstrokes bilaterally without bruits. Thyroid is nonpalpable. RESPIRATORY: Breath sounds equal bilaterally and clear to auscultation. CARDIOVASCULAR: Heart has a regular rhythm. Normal S1, S2. No S3, S4. No cardiac rubs or murmurs. GASTROINTESTINAL: Abdomen is soft, nontender without organomegaly. EXTREMITIES: Free of edema, digit clubbing, or cyanosis. NEUROLOGIC: Grossly intact. SKIN: Warm to touch. LYMPH NODES: Negative to palpation. IMPRESSION: 1. Paroxysmal atrial flutter/fibrillation. 2. 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 RECOMMENDATIONS: As outlined above, the patient's sotalol dose was decreased to 40 mg b.i.d. We will continue this dose and possibly by tomorrow, he may be ready for discharge. His INR today is 1.1 and hopefully it will be higher tomorrow. I would continue the heparin until discharge.
[2017-05-13] MEDS: WARFARIN SOD 5 MG TAB PO SCH (16:28)
--- NOTE | 2017-05-13 21:27 | Progress Note ---
Medicine Progress Note Date & Time of Visit: May 13, 2017 at 14:23. Subjective tolerating PO mentating at baseline complains of being cold "with his blood thin now" denies chest pain, SOB or other symptoms. ambulatory Objective Last 8 Hrs Date Time Temp Pulse Resp B/P (MAP) Pulse Ox O2 Delivery O2 Flow Rate FiO2 05/13/17 12:09 36.4 50 18 113/66 (82) 97 Room Air 05/13/17 12:00 Room Air 05/13/17 08:23 63 05/13/17 08:00 Room Air 05/13/17 07:41 37.0 51 18 116/69 (85) 97 Room Air Physical Exam: GEN: WNWD, in no acute distress, alert and appropriate, [place] HEENT: NC/AT, pupils are equal and round bilaterally, normal sclerae, MMM CARDIO: pete rate, S1/2 heard without m/g/r, 2+ pulses (radial), no edema LUNGS: CTA bilaterally, no crackles, rales or wheezes, good diaphragmatic excursion ABD: soft, non-tender, non-distended, no rebound or guarding, +BS EXTREMITY: RP and DP palpable 2+ bilat, no LE swelling or edema, extremities are warm and well-perfused NEURO: CN 2-12 grossly intact, well-developed musculature, no focal deficits. MUSC: 5/5 strength throughout, no focal deficits SKIN: warm and dry, tanned. Laboratory Results: 05/13/17 07:07 05/13/17 07:07 Test 05/11/17 11:25 05/12/17 05:11 05/13/17 07:07 Total Creatine Kinase 113 U/L (39-308) Creatine Kinase MB 3.5 ng/ml (0.5-3.6) Creatine Kinase MB Ratio 3.1 (0-3.0) Troponin I < 0.015 ng/ml (0-0.045) Thyroid Stimulating Hormone (TSH) 2.180 uIu/ml (0.300-4.500) Free Thyroxine 1.06 ng/dl (0.80-1.60) Immature Granulocyte % (Auto) 0.5 % White Blood Count 6.18 K/uL (4.8-10.8) Red Blood Count 4.46 M/uL (4.7-6.1) 4.95 M/uL (4.7-6.1) Hemoglobin 14.8 g/dL (14.0-18.0) Hematocrit 42.8 % (42-52) Mean Corpuscular Volume 96.0 fL (80-100) 96.2 fL (80-100) Mean Corpuscular Hemoglobin 33.2 pg (25-34) 32.9 pg (25-34) Mean Corpuscular Hemoglobin Concent 34.6 g/dl (32-36) 34.2 g/dl (32-36) Platelet Count 133 K/uL (130-400) Mean Platelet Volume 9.8 fL (7.4-10.4) 10.0 fL (7.4-10.4) Neutrophils (%) (Auto) 54.8 % Lymphocytes (%) (Auto) 25.6 % Monocytes (%) (Auto) 13.9 % Eosinophils (%) (Auto) 4.9 % Basophils (%) (Auto) 0.3 % Neutrophils # (Auto) 3.39 K/uL (1.4-6.5) Lymphocytes # (Auto) 1.58 K/uL (1.2-3.4) Monocytes # (Auto) 0.86 K/uL (0.11-0.59) Eosinophils # (Auto) 0.30 K/uL (0-0.5) Basophils # (Auto) 0.02 K/uL (0-0.2) Immature Granulocyte # (Auto) 0.03 K/uL (0.00-0.02) Prothrombin Time 11.4 SECONDS (9.0-12.0) Prothromb Time International Ratio 1.1 (0.9-1.1) Total Bilirubin 0.9 mg/dl (0.2-1) Aspartate Amino Transf (AST/SGOT) 16 U/L (15-37) Alanine Aminotransferase (ALT/SGPT) 21 U/L (12-78) Alkaline Phosphatase 51 U/L (45-117) Total Protein 6.2 gm/dl (6.4-8.2) Albumin 3.1 gm/dl (3.4-5.0) Globulin 3.1 gm/dl (2.5-4.0) Albumin/Globulin Ratio 1.0 (0.9-2) RDW Standard Deviation 46.8 fL (36.4-46.3) RDW Coefficient of Variation 13.4 % (11.5-14.5) Activated Partial Thromboplast Time 69.7 SECONDS (21.0-31.0) Partial Thromboplastin Ratio 2.7 Anion Gap 5.0 mmol/L (3-11) Est Creatinine Clear Calc Drug Dose 86.5 ml/min Estimated GFR () 97.3 Estimated GFR (Non- 83.9 BUN/Creatinine Ratio 15.8 (10-20) Calcium Level 8.7 mg/dl (8.5-10.1) Last 24 Hours Test 05/13/17 07:07 White Blood Count 5.15 K/uL Red Blood Count 4.95 M/uL Hemoglobin 16.3 g/dL Hematocrit 47.6 % Mean Corpuscular Volume 96.2 fL Mean Corpuscular Hemoglobin 32.9 pg Mean Corpuscular Hemoglobin Concent 34.2 g/dl RDW Standard Deviation 46.8 fL RDW Coefficient of Variation 13.4 % Platelet Count 134 K/uL Mean Platelet Volume 10.0 fL Activated Partial Thromboplast Time 69.7 SECONDS Partial Thromboplastin Ratio 2.7 Sodium Level 140 mmol/L Potassium Level 4.0 mmol/L Chloride Level 107 mmol/L Carbon Dioxide Level 28 mmol/L Anion Gap 5.0 mmol/L Blood Urea Nitrogen 12 mg/dl Creatinine 0.77 mg/dl Est Creatinine Clear Calc Drug Dose 86.5 ml/min Estimated GFR () 97.3 Estimated GFR (Non- 83.9 BUN/Creatinine Ratio 15.8 Random Glucose 102 mg/dl Calcium Level 8.7 mg/dl Assessment & Plan 81 yo M admitted with aflutter with RVR 1. Paroxysmal atrial flutter with rapid ventricular response- Dilt given in ER with spontaneous conversion to SR. cont Sotalol, heparin. Started on Coumadin. No heparin bridge needed but will cont while hospitalized. Bradycardia overnight with reduction of Sotalol to 40 BID. Now HR in 50s. Pt has cold intolerance but is otherwise asymptomatic. INR subtherapeutic, titrating for goal INR 2-3. 2. Status post endovascular stent for a thoracic aortic aneurysm at the arch with subclavian involvement, status post left carotid to subclavian bypass and embolization of proximal left subclavian artery. 3. Non obstructive CAD-cont ASA and statin FULL CODE DVT prophy-heparin drip/coumadin Dispo-to home in next 1-2 days [facility] Consultants: Cardiology Current Inpatient Medications: Current Inpatient Medications Medications (Trade) Dose Ordered Sig/Shanice Route Start Time Stop Time Status Last Admin Dose Admin Atorvastatin Calcium (Lipitor Tab) 20 mg QAM PO 05/12/17 09:00 06/11/17 08:59 05/13/17 08:22 20 MG Aspirin (Ecotrin Tab) 81 mg QAM PO 05/12/17 09:00 06/11/17 08:59 05/13/17 08:23 81 MG Heparin Sodium/ Dextrose 500 ml @ 30 mls/hr [id number] PRN IV 05/11/17 14:45 06/10/17 14:44 05/13/17 00:33 30 MLS/HR Warfarin Sodium (Coumadin Tab) 5 mg DAILY@16 PO 05/13/17 16:00 06/12/17 15:59 Sotalol HCl (Betapace Tab) 40 mg BID PO 05/12/17 21:00 06/10/17 20:59 05/13/17 08:22 40 MG Polyethylene (Miralax Powder Packet) 17 gm DAILY PRN PO 05/13/17 12:15 06/12/17 12:14 05/13/17 12:24 17 GM
[2017-05-14 03:41] VITALS: BP 96/60; PULSE 56; TEMP 36.6; O2SAT 98
[2017-05-14 04:00] VITALS: O2SAT 98
[2017-05-14 06:52] LABS: INR 1.1 (0.9-1.1); PARTIAL THROMBOPLASTIN RATIO 2.4; PROTHROMBIN TIME (PATIENT) 12.1 SECONDS (9.0-12.0)
[2017-05-14 07:03] VITALS: BP 119/70; PULSE 47; TEMP 36.5; O2SAT 96
[2017-05-14] MEDS: ASPIRIN 81 MG ECTAB PO SCH (08:11)
[2017-05-14] MEDS: SOTALOL HCL 80 MG TAB PO SCH (08:11)
[2017-05-14] MEDS: ATORVASTATIN 20 MG TAB PO SCH (08:11)
[2017-05-14] MEDS ORDERED: BISACODYL 10 MG SUPP ONE (09:56)
[2017-05-14] MEDS ORDERED: BISACODYL 10 MG SUPP PR PRN (10:00)
[2017-05-14] MEDS ORDERED: POLYETHYLENE (MIRALAX) 17 GM PACK PO PRN (10:00)
[2017-05-14 11:27] VITALS: BP 116/70; PULSE 46; TEMP 36.3; O2SAT 97
--- NOTE | 2017-05-14 13:53 | Cardiology Follow-Up ---
Subjective General Date of Service: May 14, 2017. Chief Complaint: follow up atrial flutter Pt evaluation today including: conversation w/ patient, physical exam History of Present Illness The patient is a 81 year old male seen in follow up having assumed care for Dr Sands of our practice. He remains in sinus bradycardia in the 45-48 bpm. He feels well and is walking in the hallway with no lightheadedness, or dizziness. He denies chest pain and palpitations. Allergies Coded Allergies: Sulfamethoxazole w/Trimethoprim (Verified Allergy, Unknown, HIVES, 05/11/17) Social History Smoking Status: Former Smoker Hx Alcohol Use - Type And Amou: Yes (1 DRINK EVERY EVENING) Hx Substance Use - Type And Am: No Physical Exam Vital Signs Last Vital Signs Documentation Date Time Temp Pulse Resp B/P (MAP) Pulse Ox O2 Delivery O2 Flow Rate FiO2 05/14/17 12:00 Room Air 05/14/17 11:27 36.3 46 18 116/70 (85) 97 Physical Exam Constitutional: Level of Distress: NAD Neck: supple Lungs: Auscultation: no wheezing, no rales/crackles, no rhonchi Cardiovascular: Heart Auscultation: RRR, normal S1, no murmurs Abdomen: Bowel Sounds: normal Inspection & Palpation: soft Extremities: no cyanosis, no edema Neurologic: Gait & Station: pertinent finding (no focal neurological defiicts ) Assessment and Plan Assessment and Plan IMPRESSION: 1. Paroxysmal atrial flutter/fibrillation and sinus bradycardia, borderline tachycardia bradycardia syndrome 2. 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 RECOMMENDATIONS: No pauses on telemetry. Continue sotalol 40 mg BID. Continue coumadin load as outpatient, DC on 5 mg daily and plan follow up with anticoagulation clinic early next week. If he develops symptoms of bradycardia in future would have low threshold to proceed with dual chamber pacemaker implant, however, I feel this would be premature at present. Outpt cardio follow up with Dr Nava or Dr Sands. Cory Colbert, Laboratory Results Last 24 Hours Test 05/14/17 06:02 Prothrombin Time 12.1 SECONDS Prothromb Time International Ratio 1.1 Activated Partial Thromboplast Time 63.6 SECONDS Partial Thromboplastin Ratio 2.4
[2017-05-14] MEDS ORDERED: CMD5 PO (14:02)
[2017-05-14] MEDS ORDERED: BTP80 PO (14:02)
--- NOTE | 2017-05-14 14:23 | Discharge Instructions ---
Discharge Instructions Date of Service May 14, 2017. Admission Reason for Admission: Atrial Flutter With Rapid Ventricular Response Discharge Discharge Diagnosis / Problem: Atrial flutter with RVR Discharge Goals Goal(s): Prevent Disease Progression Activity Recommendations Activity Limitations: per Instructions/Follow-up section . Instructions / Follow-Up Instructions / Follow-Up Please take all medications as instructed. You will need to contact your primary care physician's office on Tuesday to schedule a hospital follow-up within one week of discharge. Home Health nurses have been ordered to take bloodwork from you for the next three days to monitor your coumadin level (INR). Your goal INR is 2-3 and the coumadin dosage will need to be adjusted to meet that. Typically, an Anticoagulation Clinic or Coumadin Clinic will handle this. Until you can get set up with them, the results are to go to Dr. Chacon at [facility] who can adjust it in the meantime. You will need a follow-up with cardiology in the next 1-2 months to see how things are going on the new antiarrhythmic medication. It was a pleasure taking care of you! Call if you have any questions or problems. You can reach a [facility] hospitalist on duty at [facility] 24 hours a day by calling [phone]. Take care of yourself. Emmy Dunn DO [facility] Hospitalist Current Hospital Diet Patient's current hospital diet: AHA Diet (Heart Healthy) Discharge Diet Recommended Diet: AHA Diet (Heart Healthy) Procedures Procedures Performed: TTE: The left ventricle is normal in size. There is moderate concentric left ventricular hypertrophy. Ejection Fraction = 55-60%. The right ventricular systolic function is normal. The left atrial size is normal. Right atrial size is normal. The aortic root and proximal ascending aorta are normal sized. No significant valvular pathology. Pending Studies Studies pending at discharge: no Medical Emergencies . Who to Call and When: Medical Emergencies: If at any time you feel your situation is an emergency, please call 911 immediately. . Non-Emergent Contact Non-Emergency issues call your: Primary Care Provider . . "Provider Documentation" section prepared by Emmy Dunn. . VTE Core Measure Inpt VTE Proph given/why not?: Warfarin (Coumadin), Other Anticoagulation
--- NOTE | 2017-05-14 14:31 | Discharge Summary ---
Discharge Summary Date of Service May 14, 2017. Discharge Summary Admission Date: May 11, 2017 at 13:23 Discharge Date: May 14, 2017 Discharge Disposition: Home with services Principal Diagnosis: Parosysmal atrial flutter with RVR s/p endovascular stent for a thoracic aortic aneurysm at the arch with subclavian involvement s/p L carotid to subclavian bypass and ambolization of proximal L subclavian artery non-obstructive CAD Procedures: TTE Vaccinations: None. Consultations: Cardiology Pending Studies/Follow-Up: see instructions below. Medication Reconciliation New Medications: Sotalol HCl (Sotalol HCl) 80 Mg Tab 40 MG PO BID for 30 Days, #60 TAB 1 Refill Warfarin Sod (Coumadin) 5 Mg Tab 5 MG PO DAILY@16 for 30 Days, #30 TAB Take daily until otherwise instructed by the coumadin clinic. Continued Medications: Aspirin (Aspirin Ec) 81 Mg Tab 81 MG PO DAILY Atorvastatin (Lipitor) 20 Mg Tab 1 TAB PO DAILY for 30 Days, #30 TAB 5 Refills Docusate Sodium (Colace) 100 Mg Cap 1 CAP PO BID for 15 Days, #30 CAP Garlic (Sm Garlic) 500 Mg Tab 500 MG PO BID Pantoprazole (Protonix) 40 Mg Tab 40 MG PO DAILY, #30 TAB Polyethylene (Miralax) 17 Gm Pow 17 GM PO DAILY PRN for Constipation Discontinued Medications: Diltiazem Hcl Coated Beads (Cardizem Cd) 120 Mg Cap 120 MG PO DAILY Admission Information HPI (per Admitting provider): This is an 81 y/o male with PMH of thoracic aortic aneurysm s/p repair June 2016, mild nonobstructive coronary atherosclerosis on cardiac cath 2015, recent atrial fibrillation, and other problems listed below who was sent to the ED by Dr. Nava for atrial flutter with RVR. Patient was recently in [facility] and transferred to [facility] May 02, 2017 for atrial flutter with RVR which spontaneously converted to sinus rhythm on IV diltiazem. Per cardiology note, echo at [facility] May 02, 2017 showed ejection fraction 65% , no significant valvular abnormalities, normal left atrial size. He was seen by Dr. Nava in follow up today, at which time he reported intermittent elevated heart rate on home monitor. Heart rate was elevated to 160 bpm at home this morning. He admitted to associated "wooziness". EKG in clinic showed atrial flutter with rapid response rate 124 with left anterior fascicular block pattern. Patient was sent to ED for further evaluation and treatment. Pt denies syncope, chest pain, palpitations, SOB, MENDOZA, orthopnea, increased abdominal girth, LE edema. Denies hx of abnormal bleeding. Has not been on anticoagulation. Denies h/o CHF, DM, TIA, CVA. Physical Exam (per Admitting): General Appearance: WD/WN, no apparent distress Head: normocephalic, atraumatic Eyes: normal inspection, sclerae normal ENT: normal ENT inspection, hearing grossly normal Neck: supple, trachea midline Respiratory/Chest: lungs clear, normal breath sounds, no respiratory distress, no accessory muscle use Cardiovascular: no murmur, + irregularly irregular (rate 120) Abdomen/GI: normal bowel sounds, non tender, soft Extremities/Musculoskelatal: normal inspection, no pedal edema Neurologic/Psych: alert, normal mood/affect, oriented x 3, + pertinent finding (grossly nonfocal) Skin: normal color, warm/dry Hospital Course 81 yo M admitted with aflutter with RVR 1. Paroxysmal atrial flutter with rapid ventricular response- Dilt given in ER with spontaneous conversion to SR. cont Sotalol, heparin. Started on Coumadin. No heparin bridge needed but will cont while hospitalized. Bradycardia overnight with reduction of Sotalol to 40 BID. Now HR in 50s. Pt has cold intolerance but is otherwise asymptomatic. INR subtherapeutic, titrating for goal INR 2-3. 2. Status post endovascular stent for a thoracic aortic aneurysm at the arch with subclavian involvement, status post left carotid to subclavian bypass and embolization of proximal left subclavian artery. 3. Non obstructive CAD-cont ASA and statin On day of discharge he was asymptomatic, afebrile and hemodynamically stable with some acceptable bradycardia on Sotalol Per Cardiology. His INR was subtherapeutic and he was sent home with for INR draws until he could be established at the coumadin clinic next week. Physical exam was unremarkable and he was discharged in stable condition with close PCP and Cardiology follow- up as outpatient. [facility] Total time spent on discharge = 60 minutes This includes examination of the patient, discharge planning, medication reconciliation, and communication with other providers. Discharge Instructions [facility] [address] [place] [address] Discharge Medical Patient Name: Baltazar Avelar V Unit Number: [id number] Date of : 1935 Patient Status: Admitted Inpatient Attending Doctor: Emmy Dunn DO DI: Medical v4 Discharge Instructions Date of Service May 14, 2017. Admission Reason for Admission: Atrial Flutter With Rapid Ventricular Response Discharge Discharge Diagnosis / Problem: Atrial flutter with RVR Discharge Goals Goal(s): Prevent Disease Progression Activity Recommendations Activity Limitations: per Instructions/Follow-up section . Instructions / Follow-Up Instructions / Follow-Up Please take all medications as instructed. You will need to contact your primary care physician's office on Tuesday to schedule a hospital follow-up within one week of discharge. Home Health nurses have been ordered to take bloodwork from you for the next three days to monitor your coumadin level (INR). Your goal INR is 2-3 and the coumadin dosage will need to be adjusted to meet that. Typically, an Anticoagulation Clinic or Coumadin Clinic will handle this. Until you can get set up with them, the results are to go to Dr. Chacon at [facility] who can adjust it in the meantime. You will need a follow-up with cardiology in the next 1-2 months to see how things are going on the new antiarrhythmic medication. It was a pleasure taking care of you! Call if you have any questions or problems. You can reach a [facility] hospitalist on duty at [facility] 24 hours a day by calling [phone]. Take care of yourself. Emmy Dunn DO [facility] Hospitalist Current Hospital Diet Patient's current hospital diet: AHA Diet (Heart Healthy) Discharge Diet Recommended Diet: AHA Diet (Heart Healthy) Procedures Procedures Performed: TTE: The left ventricle is normal in size. There is moderate concentric left ventricular hypertrophy. Ejection Fraction = 55-60%. The right ventricular systolic function is normal. The left atrial size is normal. Right atrial size is normal. The aortic root and proximal ascending aorta are normal sized. No significant valvular pathology. Pending Studies Studies pending at discharge: no Medical Emergencies . Who to Call and When: Medical Emergencies: If at any time you feel your situation is an emergency, please call 911 immediately. . Non-Emergent Contact Non-Emergency issues call your: Primary Care Provider . . "Provider Documentation" section prepared by Emmy Dunn. . VTE Core Measure Inpt VTE Proph given/why not?: Warfarin (Coumadin), Other Anticoagulation Additional Copies To Estiven Salcido D.O.
[2017-05-14 14:43] VITALS: BP 116/70; PULSE 46; TEMP 36.3; O2SAT 97
[2017-05-14] MEDS: WARFARIN SOD 5 MG TAB PO SCH (15:33)
[2017-06-22] MEDS ORDERED: BTP80 PO (15:27)
== END 2017-05-14 15:30 | disposition home health service (06) | DRG 310 ==
LOC: C.EDB 11:00 → C.2T 13:23 → ENRESERV 13:23
PROVIDERS: ADMIT Hospitalist; ATTEND Hospitalist
DX: I48.92 Unspecified atrial flutter (principal); I25.10 Atherosclerotic heart disease of native coronary artery without angina pectoris; E78.5 Hyperlipidemia, unspecified; Z79.82 Long term (current) use of aspirin; Z79.899 Other long term (current) drug therapy; Z95.818 Presence of other cardiac implants and grafts

== ENCOUNTER 2017-05-22 06:06 | Emergency (ER) | payer OTHER ==
[~2017-05-22] VITALS: Ht 182.9 cm; Wt 94.5 kg
[~2017-05-22 06:06] MED LIST changes: +BTP80 PO; +CMD5 PO; +DOCU-94 PO; -GABA-113 PO; -GARL1CAP PO; +GARL1TAB12 PO; -MELO7.5T5 PO; +MRLP17X PO; +PANT40TA PO
[2017-05-22 06:15] VITALS: TEMP 36.5; Ht 182.9 cm; Wt 94.5 kg
[2017-05-22] MEDS ORDERED: METOPROLOL TARTRATE 1 MG/ML VIAL IV STA (06:40)
[2017-05-22 06:57] LABS: BASO % 0.4 %; BASO ABS # 0.02 K/uL (0-0.2); COMPLETE YES; EOS % 5.3 %; HEMATOCRIT 50.2 % (42-52); IG% 0.4 %; LYMPH % 29.2 %; LYMPH ABS # 1.42 K/uL (1.2-3.4); MEAN CELL VOLUME 95.4 fL (80-100); MEAN CORPUSCULAR HEMOGLOBIN 32.5 pg (25-34); MEAN CORPUSCULAR HGB CONC 34.1 g/dl (32-36); MEAN PLATELET VOLUME 10.1 fL (7.4-10.4); MONO % 13.4 %; NEUT % 51.3 %; PLATELET COUNT 140 K/uL (130-400); RED BLOOD COUNT 5.26 M/uL (4.7-6.1); WHITE BLOOD COUNT 4.86 K/uL (4.8-10.8)
[2017-05-22 07:04] LABS: BLOOD UREA NITROGEN 14 mg/dl (7-18); BUN/CREATININE RATIO 18.1 (10-20); CALCIUM 8.7 mg/dl (8.5-10.1); CARBON DIOXIDE 26 mmol/L (21-32); CHLORIDE 109 mmol/L (98-107); CREATININE 0.79 mg/dl (0.60-1.40); GLUCOSE 112 mg/dl (70-99); POTASSIUM 4.2 mmol/L (3.5-5.1); SODIUM 139 mmol/L (136-145)
[2017-05-22 07:19] LABS: INR 1.4 (0.9-1.1); PARTIAL THROMBOPLASTIN RATIO 1.2
[2017-05-22] MEDS ORDERED: WARF7.5T4 PO (07:21)
--- NOTE | 2017-05-22 07:53 | DIAGNOSTIC IMAGING REPORT ---
SINGLE VIEW CHEST CLINICAL HISTORY: Fever. Sepsis. Irregular heartbeat and palpitations. FINDINGS: 2 AP, portable, upright chest radiographs are compared to study dated 05/11/2017. The examination is degraded by portable technique and patient rotation. The heart is enlarged. The pulmonary vasculature is noncongested. A stent graft is noted in the thoracic aorta, similar to previous. Aortic caliber is unchanged. Emphysema is suspected and there is chronic interstitial thickening. No large pleural effusion is identified and there is no airspace consolidation typical for pneumonia. Apical scarring is observed. No pneumothorax is seen. The skeletal structures are osteopenic. The bony thorax is grossly intact. Arthritic change is present in the shoulders. IMPRESSION: 1. Cardiomegaly without radiographic evidence of congestive failure. 2. Suspect emphysema. No airspace consolidation or large pleural effusion is identified. 3. A stent graft is again seen in the thoracic aorta. Aortic caliber appears unchanged from 05/11/2017. Electronically signed by: Evan Weldon M.D. 05/22/2017 7:52 AM Dictated Date/Time: 05/22/2017 7:50 AM
--- NOTE | 2017-05-22 07:57 | EMERGENCY ROOM VISIT NOTE ---
History Report prepared by Rodolfo: Angy Koch Under the Supervision of: Dr. Josué Shafer D.O. First contact with patient: 06:36 Chief Complaint: IRREGULAR HEARTBEAT Stated Complaint: IRREGULAR,FAST HEARTBEAT Nursing Triage Summary: pt reports new dx of afib DC from hosp 1 week ago , last night took extra coumadin by accident and feels pulse "beating all over the place" denies increased sob or cp History of Present Illness The patient is an 81 year old male who presents to the Emergency Room with complaints of persistent irregular heartbeat starting 0430 this morning. The patient often gets up to go to the bathroom during the night. This morning when they woke up, he noticed that he felt "weird". He checked his pulse and found that his heart was beating quickly and irregularly. He denies any chest pain, SOB, or leg swelling. He notes that his Coumadin was increased 2 days ago and took extra yesterday on accident. He denies any other missed or extra medications. He notes that he felt similarly 1 week ago when he was seen in the ED. Source of History: patient Onset: 0430 this morning Position: other (global) Quality: other (irregular heartbeat) Timing: other (persistent) Associated Symptoms: No chest pain, No SOB Note: Pt denies leg swelling. Review of Systems See HPI for pertinent positives & negatives. A total of 10 systems reviewed and were otherwise negative. Past Medical & Surgical Medical Problems: (1) Atrial flutter with rapid ventricular response (2) BPH (benign prostatic hyperplasia) (3) H/O poliomyelitis (4) History of atrial flutter (5) Kidney stone (6) LAFB (left anterior fascicular block) (7) Nonobstructive atherosclerosis of coronary artery Surgical Problems: (1) H/O umbilical hernia repair (2) History of carpal tunnel surgery (3) S/P thoracic aortic aneurysm repair (4) S/P tonsillectomy Family History FH: cancer SON ( of leukemia) Social History Smoking Status: Never Smoker Marital Status: Occupation Status: retired Current/Historical Medications Scheduled Aspirin (Aspirin Ec), 81 MG PO DAILY Atorvastatin (Lipitor), 20 MG PO DAILY Docusate Sodium (Colace), 100 MG PO BID Garlic (Sm Garlic), 500 MG PO BID Pantoprazole (Protonix), 40 MG PO DAILY Sotalol HCl (Sotalol HCl), 40 MG PO BID Warfarin Sod (Jantoven), 7.5 MG PO DAILY@1600 Scheduled PRN Polyethylene (Miralax), 17 GM PO DAILY PRN for Constipation Allergies Coded Allergies: Sulfamethoxazole w/Trimethoprim (Verified Allergy, Unknown, HIVES, 05/22/17 ) Physical Exam Vital Signs Date Time Temp Pulse Resp B/P (MAP) Pulse Ox O2 Delivery O2 Flow Rate FiO2 05/22/17 07:09 53 18 118/67 95 Room Air 05/22/17 06:33 113 05/22/17 06:25 Room Air 05/22/17 06:15 36.5 130 20 137/84 96 Room Air Physical Exam CONSTITUTIONAL/VITAL SIGNS: Reviewed / noted above. GENERAL: Non-toxic in appearance. INTEGUMENTARY: Warm, dry, and [place]. HEAD: Normocephalic. EYES: without scleral icterus or trauma. ENT/OROPHARYNX: clear and moist. LYMPHADENOPATHY/NECK: Is supple without lymphadenopathy or meningismus. RESPIRATORY: Lungs clear and equal. CARDIOVASCULAR: Rapid rate and irregular rhythm. GI/ABDOMEN: Soft and nontender. No organomegaly or pulsatile mass. No rebound or guarding. Normal bowel sounds. EXTREMITIES: Warm and well perfused. BACK: No CVA tenderness. NEUROLOGICAL: Intact without focal deficits. PSYCHIATRIC: normal affect. MUSCULOSKELETAL: Normally developed with good muscle tone. Medical Decision & Procedures ER Provider Diagnostic Interpretation: X ray results and stated below per my interpretation and radiology interpretation. SINGLE VIEW CHEST CLINICAL HISTORY: Fever. Sepsis. Irregular heartbeat and palpitations. FINDINGS: 2 AP, portable, upright chest radiographs are compared to study dated 05/11/2017. The examination is degraded by portable technique and patient rotation. The heart is enlarged. The pulmonary vasculature is noncongested. A stent graft is noted in the thoracic aorta, similar to previous. Aortic caliber is unchanged. Emphysema is suspected and there is chronic interstitial thickening. No large pleural effusion is identified and there is no airspace consolidation typical for pneumonia. Apical scarring is observed. No pneumothorax is seen. The skeletal structures are osteopenic. The bony thorax is grossly intact. Arthritic change is present in the shoulders. IMPRESSION: 1. Cardiomegaly without radiographic evidence of congestive failure. 2. Suspect emphysema. No airspace consolidation or large pleural effusion is identified. 3. A stent graft is again seen in the thoracic aorta. Aortic caliber appears unchanged from 05/11/2017. Electronically signed by: Evan Weldon M.D. 05/22/2017 7:52 AM Dictated Date/Time: 05/22/2017 7:50 AM Laboratory Results 05/22/17 06:33 Red Blood Count 5.26, Mean Corpuscular Volume 95.4, Mean Corpuscular Hemoglobin 32.5, Mean Corpuscular Hemoglobin Concent 34.1, Mean Platelet Volume 10.1, Neutrophils (%) (Auto) 51.3, Lymphocytes (%) (Auto) 29.2, Monocytes (%) (Auto) 13.4, Eosinophils (%) (Auto) 5.3, Basophils (%) (Auto) 0.4, Neutrophils # (Auto ) 2.49, Lymphocytes # (Auto) 1.42, Monocytes # (Auto) 0.65, Eosinophils # (Auto ) 0.26, Basophils # (Auto) 0.02 05/22/17 06:33 Test 05/22/17 06:33 White Blood Count 4.86 K/uL (4.8-10.8) Red Blood Count 5.26 M/uL (4.7-6.1) Hemoglobin 17.1 g/dL (14.0-18.0) Hematocrit 50.2 % (42-52) Mean Corpuscular Volume 95.4 fL (80-100) Mean Corpuscular Hemoglobin 32.5 pg (25-34) Mean Corpuscular Hemoglobin Concent 34.1 g/dl (32-36) Platelet Count 140 K/uL (130-400) Mean Platelet Volume 10.1 fL (7.4-10.4) Neutrophils (%) (Auto) 51.3 % Lymphocytes (%) (Auto) 29.2 % Monocytes (%) (Auto) 13.4 % Eosinophils (%) (Auto) 5.3 % Basophils (%) (Auto) 0.4 % Neutrophils # (Auto) 2.49 K/uL (1.4-6.5) Lymphocytes # (Auto) 1.42 K/uL (1.2-3.4) Monocytes # (Auto) 0.65 K/uL (0.11-0.59) Eosinophils # (Auto) 0.26 K/uL (0-0.5) Basophils # (Auto) 0.02 K/uL (0-0.2) RDW Standard Deviation 45.5 fL (36.4-46.3) RDW Coefficient of Variation 13.1 % (11.5-14.5) Immature Granulocyte % (Auto) 0.4 % Immature Granulocyte # (Auto) 0.02 K/uL (0.00-0.02) Prothrombin Time 15.0 SECONDS (9.0-12.0) Prothromb Time International Ratio 1.4 (0.9-1.1) Activated Partial Thromboplast Time 31.4 SECONDS (21.0-31.0) Partial Thromboplastin Ratio 1.2 Anion Gap 4.0 mmol/L (3-11) Est Creatinine Clear Calc Drug Dose 84.5 ml/min Estimated GFR () 96.2 Estimated GFR (Non- 83.0 BUN/Creatinine Ratio 18.1 (10-20) Calcium Level 8.7 mg/dl (8.5-10.1) Troponin I < 0.015 ng/ml (0-0.045) Laboratory results as stated above per my review. ECG Indication: palpitations Rate (beats per minute): 102 Rhythm: atrial fibrillation Findings: no ectopy, other (no acute injury) Comparison ECG Date: 13-May-2017 Change: A fib replaced sinus bradycardia. ED Course 0646: Previous medical records were reviewed. The patient was evaluated in room A4B. A complete history and physical examination was performed. 0640: Ordered Lopressor Iv 5 mg IV. 0705: Lopressor was not administered as the patient converted to sinus bradycardia. 0730: Repeat EKG shows sinus bradycardia, rate 50. 0758: On reevaluation, the patient is resting comfortably. I discussed the results and findings with the patient. He verbalized agreement of the treatment plan. He was discharged home. Medical Decision the differential was considered includes acute myocardial infarction, acute coronary syndrome, myocarditis, pericarditis, pericardial effusions /tamponad, esophageal perforation, thoracic aortic dissection, pulmonary embolism, pneumonia, pneumothorax, pancreatitis, shingles, acute cholecystitis, perforated abdominal viscus. This is an 81-year-old male who presents to the ED with a chief complaint of palpitations. The patient states that around 5 AM he awoke and felt that his heart was beating irregularly. He was in the hospital about a week ago for the same. He has a history of paroxysmal atrial fibrillation. He is currently on sotalol. He is also on Coumadin. The patient has a normal exam other than an irregular pulse rate. He is in no distress. An EKG shows A. fib at a rate of 102. When he was discharged from the hospital he had a sinus bradycardia with a heart rate around 50. His INR today is 1.4, CBC is normal, PRP is normal, troponin was negative. During the patient's emergency department stay and prior to any medication being given, the patient spontaneously converted into a sinus bradycardia with a rate of 50. He was told results the test. He is felt to be stable for discharge. Medication Reconcilliation Current Medication List: was personally reviewed by me Blood Pressure Screening Patient's blood pressure: Normal blood pressure Blood pressure disposition: Did not require urgent referral Impression Primary Impression: Paroxysmal a-fib Scribe Attestation The scribe's documentation has been prepared under my direction and personally reviewed by me in its entirety. I confirm that the note above accurately reflects all work, treatment, procedures, and medical decision making performed by me. Departure Information Dispostion Home / Self-Care Referrals Estiven Salcido D.O. (PCP) Patient Instructions My [facility] Additional Instructions Continue current medications. Your initial EKG here revealed that you were in atrial fibrillation. During your stay, it spontaneously converted into a sinus rhythm without any treatment. Follow-up with your doctor as scheduled. Continue taking your Coumadin. Your Coumadin level today was low at 1.4. It should be between 2-3.
[2017-05-22 08:11] VITALS: BP 113/72; PULSE 53; O2SAT 95
[2017-06-22] MEDS ORDERED: BTP80 PO (15:27)
== END 2017-05-22 08:12 | disposition home or self-care (01) ==
LOC: C.EDB 06:07 → C.EDA 08:12
DX: I48.0 Paroxysmal atrial fibrillation (principal); R00.1 Bradycardia, unspecified; I25.10 Atherosclerotic heart disease of native coronary artery without angina pectoris; Z79.01 Long term (current) use of anticoagulants; Z79.82 Long term (current) use of aspirin; Z79.899 Other long term (current) drug therapy; Z86.79 Personal history of other diseases of the circulatory system; Z87.438 Personal history of other diseases of male genital organs; Z87.448 Personal history of other diseases of urinary system; Z80.6 Family history of leukemia

== ENCOUNTER 2017-06-22 11:21 | Observation (INO) | payer OTHER ==
[~2017-06-22] VITALS: Ht 182.9 cm; Wt 94.2 kg
[~2017-06-22 11:21] MED LIST changes: +CEFAZOLIN 1000MG/55 ML D5W IV SCH; -CMD5 PO; +LACTATED RINGER'S 1000ML 1,000 ML IV SCH; +WARF7.5T4 PO
[2017-06-22 12:08] VITALS: BP 129/68; PULSE 47; TEMP 36.6; O2SAT 95; BMI 29.0
[2017-06-22 12:28] LABS: INR 1.4 (0.9-1.1); PARTIAL THROMBOPLASTIN RATIO 1.2; PROTHROMBIN TIME (PATIENT) 15.3 SECONDS (9.0-12.0)
--- NOTE | 2017-06-22 13:33 | Procedure Note ---
Pre-Mod Sedation Assessment General Date of Moderate Sedation: Jun 22, 2017. Vital Signs: Vital Signs Past 12 Hours Date Time Temp Pulse Resp B/P (MAP) Pulse Ox O2 Delivery O2 Flow Rate FiO2 06/22/17 12:08 36.6 47 20 129/68 (88) 95 Room Air Review Cardiovascular: no murmur, + irregularly irregular Abdomen: soft Lungs: lungs clear Airway Class: II Pre-Sedation Airway Assessment Oral Cavity: WNL Short Thick Neck: No Hx of Sleep Apnea: Yes Smoking Status: Former Smoker Mallampati Classification: Class II ASA Classification: Class II Procedure Planning Contraindications-for Mod Sed: None Yes Notes The planned sedation has been discussed with the patient and consent obtained. I have identified the patient, determined the appropriateness of sedation and have assessed the patient immediately prior to the procedure. All medicine(s) and interventions are by my order.
--- NOTE | 2017-06-22 13:33 | History & Physical Bridge Note ---
H&P Re-Evaluation Bridge Note: I have examined the patient, reviewed the History & Physical and in the interval since the performance of the History & Physical I have noted the following changes of clinical significance: No changes noted
[2017-06-22] MEDS ORDERED: BACITRACIN 50000 UNIT VIAL ONE (13:49)
[2017-06-22] MEDS ORDERED: LIDOCAINE HCL 1% 20 ML VIAL ONE (13:49)
[2017-06-22] MEDS ORDERED: BUPIVACAINE 0.5 % 5 MG/1 ML MPF 30ML VIAL ONE (13:49)
[2017-06-22] MEDS ORDERED: MIDAZOLAM HCL 5 MG/ML 1 ML VIAL ONE (13:52)
[2017-06-22] MEDS ORDERED: FENTANYL CITRATE INJ 50 MCG/1 ML 2 ML VIAL ONE ×2 (13:52→14:50)
[2017-06-22] MEDS ORDERED: MIDAZOLAM HCL 1 MG/ML 2ML VIAL ONE (14:50)
--- NOTE | 2017-06-22 15:26 | [facility] Post Operative Brief Note ---
Immediate Operative Summary Operative Date Jun 22, 2017. Pre-Operative Diagnosis tachy-pete syndrome Post-Operative Diagnosis same Procedure(s) Performed dual chamber rate responsive permanent pacemaker under fluroscopic guidance Surgeon rimma gomez Superintendent Plant Surgeon(s) none Estimated Blood Loss <20cc Findings see official report Fluids (cc crystalloids) 500cc Specimens same Drains same Anesthesia 6mg versed and 125mcg fentatnyl Complication(s) None Disposition PCU
[2017-06-22] MEDS ORDERED: BTP80 PO (15:27)
--- NOTE | 2017-06-22 15:27 | Procedure Note ---
Post-Mod Sedation Assessment General Date of Moderate Sedation Jun 22, 2017. Vital Signs: Vital Signs Past 12 Hours Date Time Temp Pulse Resp B/P (MAP) Pulse Ox O2 Delivery O2 Flow Rate FiO2 06/22/17 12:08 36.6 47 20 129/68 (88) 95 Room Air Review - Discharge Criteria Vital Signs Stable: Yes Alert/Oriented/Conversant: Yes Returned to Baseline Mental St: Yes Nausea Absent/Minimal: Yes Pain/Discomfort/Absent/Minimal: Yes Normal/Baseline Respirations: Yes Active Bleeding?: No Pt Received D/C Instructions: N/A Prescriptions Given: None Specific Proced. D/C Criteria Distal Pulses Present (Cardiac: N/A Groin site assessed-Card Cath: N/A Voided Prior To Discharge: N/A Discharged Patients Adult Escort/Transportation: N/A
--- NOTE | 2017-06-22 15:29 | Discharge Instructions ---
Discharge Instructions Date of Service Jun 22, 2017. Admission Reason for Admission: Tachybrady Syndrome Discharge Discharge Diagnosis / Problem: tachy-pete syndrome Discharge Goals Goal(s): Improve function Activity Recommendations Activity Limitations: as noted below Lifting Limitations: no more than 10 pounds (do not lift the left elbow over the left shoulder for 1 month; do not lift more than 10 pounds with the left arm for 2 weeks) Shower/Bathe: tomorrow Driving or Machine Use: resume 1 day after discharge . Instructions / Follow-Up Instructions / Follow-Up ACTIVITY RECOMMENDATIONS: * Do not raise affected arm over head for 4 weeks. SPECIAL CARE INSTRUCTIONS: * If bleeding occurs, apply direct pressure to area for 5 minutes. * Call your doctor if you have severe pain, fever, drainage or bleeding at site. * Keep dressing on and dry for 48 hours then remove. * Keep any scheduled doctor's appointment. * Implant Card - hand held device with website information given. SKIN IRRITATION: * You may experience some redness and/or swelling in the area where radiation was administered. If any skin irritation occurs, please contact your family physician. FOLLOW UP VISIT: Keep any scheduled doctor appointments. Current Hospital Diet Patient's current hospital diet: AHA Diet (Heart Healthy) Discharge Diet Recommended Diet: AHA Diet (Heart Healthy) Procedures Procedures Performed: dual chamber rate responsive permanent pacemaker under fluroscopic guidance Pending Studies Studies pending at discharge: no Medical Emergencies . Who to Call and When: Medical Emergencies: If at any time you feel your situation is an emergency, please call 911 immediately. . Non-Emergent Contact Non-Emergency issues call your: Wastewater Project Manager . . "Provider Documentation" section prepared by Kimebrley Flores. . VTE Core Measure Inpt VTE Proph given/why not?: Warfarin (Coumadin)
[2017-06-22] MEDS ORDERED: ACETAMINOPHEN/CODEINE 300/30MG TAB PO PRN (15:30)
[2017-06-22] MEDS ORDERED: ACETAMINOPHEN 325 MG TAB PO PRN (15:30)
[2017-06-22] MEDS ORDERED: POLYETHYLENE (MIRALAX) 17 GM PACK PO PRN (15:30)
--- NOTE | 2017-06-22 15:32 | Discharge Summary ---
Discharge Summary Date of Service Jun 22, 2017. Discharge Summary Admission Date: 06/22/2017 Discharge Date: Jun 23, 2017 Discharge Disposition: Home Principal Diagnosis: tachy-pete syndrome Secondary Diagnoses/Problems: paroxysmal atrial flutter on coumadin and sotalol 04/2017 AAA and ascending aortic aneurysm s/p thoracic repair with stent 2015 hld Procedures: dual chamber permanent pacemaker Medication Reconciliation New Medications: Sotalol HCl (Sotalol HCl) 80 Mg Tab 80 MG PO BID for 30 Days, #60 TAB Continued Medications: Aspirin (Aspirin Ec) 81 Mg Tab 81 MG PO DAILY Atorvastatin (Lipitor) 20 Mg Tab 20 MG PO DAILY for 30 Days, #30 TAB 5 Refills Garlic (Sm Garlic) 500 Mg Tab 500 MG PO DAILY Polyethylene (Miralax) 17 Gm Pow 17 GM PO DAILY PRN for Constipation Warfarin Sod (Jantoven) Unknown Strength Tab Unknown Dose PO DAILY@1600, TAB As directed by coag clinic. Discontinued Medications: Sotalol HCl (Sotalol HCl) 80 Mg Tab 40 MG PO BID for 30 Days, #60 TAB 1 Refill Admission Information Physical Exam (per Admitting): aaox3, NAD nc/at, eomi supple, no jvd irregular s1/s2, no murmur cta b/l no w/r/r soft nt/nd no edema b/l no focal deficits skin intact Hospital Course Pt admitted due to Tachy-pete syndrome underwent permanent pacemaker implant without any complications. Monitored overnight; his sotalol was increased back to 80mg BID and he was discharged home. Total time spent on discharge = 30 minutes This includes examination of the patient, discharge planning, medication reconciliation, and communication with other providers. Discharge Instructions ACTIVITY RECOMMENDATIONS: * Do not raise affected arm over head for 4 weeks. SPECIAL CARE INSTRUCTIONS: * If bleeding occurs, apply direct pressure to area for 5 minutes. * Call your doctor if you have severe pain, fever, drainage or bleeding at site. * Keep dressing on and dry for 48 hours then remove. * Keep any scheduled doctor's appointment. * Implant Card - hand held device with website information given. SKIN IRRITATION: * You may experience some redness and/or swelling in the area where radiation was administered. If any skin irritation occurs, please contact your family physician. FOLLOW UP VISIT: Keep any scheduled doctor appointments.
[2017-06-22] MEDS ORDERED: WARFARIN SOD 2 MG TAB PO SCH (16:00)
[2017-06-22] MEDS ORDERED: IV FLUIDS COMPLETED PRN (16:00)
[2017-06-22 16:08] VITALS: BP 114/69; PULSE 60; TEMP 36.3; O2SAT 93
[2017-06-22 16:10] VITALS: Ht 182.9 cm; Wt 94.2 kg
[2017-06-22] MEDS ORDERED: NURSING VERBAL MED ORDER ONE (16:30)
[2017-06-22 16:32] LABS: HEMATOCRIT 44.2 % (42-52); MEAN CELL VOLUME 95.5 fL (80-100); MEAN CORPUSCULAR HEMOGLOBIN 32.8 pg (25-34); MEAN PLATELET VOLUME 9.4 fL (7.4-10.4); PLATELET COUNT 113 K/uL (130-400); RED BLOOD COUNT 4.63 M/uL (4.7-6.1); WHITE BLOOD COUNT 5.09 K/uL (4.8-10.8)
[2017-06-22 17:02] LABS: MEAN CORPUSCULAR HGB CONC 34.4 g/dl (32-36)
[2017-06-22] MEDS: SOTALOL HCL 80 MG TAB PO SCH (20:46)
[2017-06-22 20:56] VITALS: BP 136/84; PULSE 56; TEMP 36.7; O2SAT 95
--- NOTE | 2017-06-22 22:05 | OPERATIVE REPORT ---
DATE OF OPERATION: 06/22/2017 PREOPERATIVE DIAGNOSIS: Tachybrady syndrome. POSTOPERATIVE DIAGNOSIS: Same. PROCEDURE: Dual chamber rate responsive permanent pacemaker under fluoroscopic guidance. SURGEON: Dr. Kibmerley Flores. ESTIMATOR PAPERBOARD BOXES: None. ANESTHESIA: Monitored conscious sedation administered under my supervision by Sandro Castelan. Start time 1405 and end time 1515. A total of 6 mg of Versed and 125 mcg of fentanyl. INTRAVENOUS FLUIDS: 500 mL. ANTIBIOTICS: Two grams of Ancef. ESTIMATED BLOOD LOSS: Less than 20 mL. COMPLICATIONS: None. CONDITION: Stable. URINE OUTPUT: Not applicable. SPECIMENS: None. FINDINGS: See below. DRAINS: None. INDICATIONS: This is an 81-year-old gentleman with a past medical history for paroxysmal atrial flutter, diagnosed in April 2017. He was started on Coumadin and sotalol; however, due to evidence of tachybrady syndrome, sotalol but due to slow heart rates was then reduced. He also has a history of hyperlipidemia as well as a thoracic descending aortic aneurysm in which he ended up needed of repair and he got a stent in 2015. Due to his evidence of tachybrady syndrome, he was recommended a dual chamber pacemaker. CONSENT: Consent was obtained prior to the patient going into the electrophysiology lab. The patient was informed of risks, benefits, alternatives to these risks include but not limited to sudden cardiac , cardiac arrhythmias, cerebrovascular accident, myocardial infarction, injury to the blood vessels, chamber of the heart, lungs, bleeding and infection. The patient understood these risks and agreed to the procedure as planned. Informed consent was obtained. DESCRIPTION OF THE PROCEDURE: The patient was brought into the electrophysiology lab in a fasting state. He was connected to continuous cardiac monitoring. A timeout was performed to ensure patient's identity and procedure correctly. The patient received prophylactic antibiotics prior to incision. He was prepped and draped over the left infraclavicular space in a normal surgical standard fashion. Monitored conscious sedation was given throughout the procedure for patient's comfort level. [place] precautions were maintained throughout the procedure. A 15 mL of 1% lidocaine, bupivacaine mixture were given in the left deltopectoral area. Blunt dissection was performed down to identify the cephalic vein. The cephalic vein was identified and isolated using 0 silk ties. It was nicked with an 11 blade and a guidewire was inserted without any resistance. An 8-[place] sheath was inserted over the guidewire without any resistance. The dilator was removed and a second guidewire was inserted through the 8-[place] sheath without any resistance. The sheath was then removed, flushed, and dilator reinserted over it and then the sheath was reinserted over one of the guidewires without any resistance. The guidewire and dilator were removed. The right ventricular pacing lead was then advanced into the right ventricle and positioned into right ventricular apex under fluoroscopic guidance. There was adequate pacing and sensing thresholds and no diaphragmatic stimulation with high output pacing. The 8-[place] sheath was peeled away and lead was fixated to pectoralis muscle using 0 silk ties. A second 8-[place] sheath was then inserted over the guidewire without any resistance. The guidewire and dilator were removed. The right atrial pacing lead was then advanced into the right atrium and positioned into the lateral wall of the right atrium because there really was no appendage to be found. There was adequate pacing and sensing thresholds and no diaphragmatic stimulation with high output pacing. An 8-[place] sheath was peeled away and the lead was fixated to the pectoralis muscle using 0 silk ties. An additional 10 mL of 1% lidocaine, bupivacaine mixture were given within the pectoralis fascia over the pectoralis muscle and then blunt dissection within the pectoralis fascia over the pectoralis muscle was used to create a pacemaker pocket. There was some backbleeding from the cephalic vein, so 2 pursestrings using 2-[address] needle were placed. The pocket was flushed with copious amounts of bacitracin saline wash and inspected for hemostasis. The new pulse generator was attached to the leads making sure that the pins were in appropriate position, passed the set screws, and set screws all tightened. The pulse generator was then placed in the pocket and ensured that the leads were lying flat beneath the device. A stay stitch using 0 silk suture was used to secure the device to the pectoralis muscle. There was a little bit more oozing than I would like as the patient was going back on Coumadin, so we put an Plac[place] stat in the pocket. Then the incision was closed in a 3-layer fashion using a 2-0 Vicryl interrupted suture followed by a 3-0 Vicryl interrupted suture followed by a 4-0 Monocryl running stitch. Dermabond was applied followed then by a pressure dressing. EQUIPMENT: 1. Pulse generator is a Medtronic Advisa DR BERTHA Mancera [id number], serial #[id number]. 2. Right atrial lead Medtronic 5076-52 cm, serial #[id number]. 3. Right ventricular lead, Medtronic 5076-58 cm, serial #[id number]. INTRAOPERATIVE TESTIN. Right atrial lead: P-wave 3 millivolts, impedance 607 ohms, threshold 0.9 volts at 1.5 milliamps. 2. Right ventricular lead: R-wave IS 8.2 millivolts, impedance 906 ohms, threshold 0.5 volts at 0.5 milliamps. FINAL MEASUREMENTS THROUGH THE DEVICE: 1. Right atrial lead: P-wave IS 2.3 millivolts, impedance 475 ohms, threshold 1 volt at 0.4 milliseconds. 2. Right ventricular lead: R-wave is 11.5 millivolts, impedance 646 ohms, threshold 0.75 volts at 0.4 milliseconds. FINAL PARAMETERS: MVP-R 60/130. Right atrial amplitude 3.5 volts, pulse width 0.4 milliseconds, sensitivity 0.3 millivolts. Right ventricular amplitude 3.5 volts, pulse width 0.4 milliseconds, sensitivity 1.2 millivolts. IMPRESSION: Successful implantation of a dual chamber rate responsive permanent pacemaker secondary to tachybrady syndrome. PLAN: Monitor patient overnight, 12-lead ECG, chest x-ray. He is not allowed to lift left elbow or left shoulder for 1 month. He cannot lift more than 10 pounds with the left arm for 2 weeks. He can shower in 2 days. He should leave the pressure dressing on for 2 days. We will increase his sotalol to 80 mg twice a day as he did convert to sinus rhythm while in the lab here and he otherwise can continue his other home medications. He should follow up in our [facility] device clinic in 7-10 days for device and wound check, and we will further assess whether he needs a flutter ablation in the future. I attest to the content of the Intraoperative Record and any orders documented therein. Any exceptions are noted below. NEVA
[2017-06-22 23:50] VITALS: BP 150/84; PULSE 60; TEMP 36.7; O2SAT 94
[2017-06-23] VITALS: O2SAT 94
[2017-06-23 04:00] VITALS: BP_SYST 132; BP_SYST 169; BP_DIAS 80; BP_DIAS 93; PULSE 57; TEMP 36.6; TEMP 37; O2SAT 94; O2SAT 95
[2017-06-23 05:53] LABS: INR 1.2 (0.9-1.1); PROTHROMBIN TIME (PATIENT) 12.7 SECONDS (9.0-12.0)
[2017-06-23 07:16] VITALS: BP 120/74; PULSE 58; TEMP 36.8; O2SAT 95
--- NOTE | 2017-06-23 07:21 | DIAGNOSTIC IMAGING REPORT ---
TWO VIEW CHEST CLINICAL HISTORY: Cardiac pacemaker implantation and lead placement. FINDINGS: PA and lateral chest radiographs are compared to study dated 05/22/2017. The PA view is degraded by patient rotation. A 2-lead cardiac pacemaker is new from previous. This partially obscures the left upper chest. Leads project over the right atrial appendage and right ventricle. The heart is enlarged. The pulmonary vasculature is noncongested. A stent graft is noted in the thoracic aorta, similar to previous. Aortic caliber is unchanged. Emphysema is suspected and there is chronic interstitial thickening. No large pleural effusion is identified and there is no airspace consolidation typical for pneumonia. Apical scarring is observed. No pneumothorax is seen. The skeletal structures are osteopenic. The bony thorax is grossly intact. Arthritic change is present in the shoulders. IMPRESSION: 1. A 2-lead cardiac pacemaker is new from previous as detailed above. No pneumothorax is identified post procedure. 2. Cardiomegaly without radiographic evidence of congestive failure. 3. Suspect emphysema. No airspace consolidation or large pleural effusion is identified. 4. A stent graft is again seen in the thoracic aorta. Aortic caliber appear unchanged from previous. Electronically signed by: Eavn Weldon M.D. 06/23/2017 7:20 AM Dictated Date/Time: 06/23/2017 7:18 AM
[2017-06-23 08:00] VITALS: PULSE 64
[2017-06-23] MEDS: SOTALOL HCL 80 MG TAB PO SCH (08:26)
[2017-06-23] MEDS ORDERED: ASPIRIN 81 MG ECTAB PO SCH (09:00)
[2017-06-23] MEDS ORDERED: ATORVASTATIN 20 MG TAB PO SCH (09:00)
--- NOTE | 2017-06-23 09:33 | Cardiology Follow-Up ---
Subjective Subjective Date of Service: Jun 23, 2017. Pt evaluation today including: conversation w/ patient, physical exam, lab review, review of studies Pain: minimal discomfort at incision renetta Problem List Medical Problems: (1) Paroxysmal a-fib Status: Acute Review of Systems Constitutional: No weakness, No fatigue Respiratory: No cough, No shortness of breath, No dyspnea on exertion Cardiac: No chest pain, No edema, No palpitations Abdomen: No nausea, No diarrhea Neurologic: No weakness Endo: No fatigue Objective Vital Signs Last Vital Signs Documentation Date Time Temp Pulse Resp B/P (MAP) Pulse Ox O2 Delivery O2 Flow Rate FiO2 06/23/17 08:00 Room Air 06/23/17 08:00 64 06/23/17 07:16 36.8 20 120/74 (89) 95 06/23/17 04:00 Physical Exam: General Appearance: WD/WN, no apparent distress Eyes: bilateral eyes PERRL, bilateral eyes EOMI Neck: supple, no JVD Respiratory/Chest: lungs clear, normal breath sounds Cardiovascular: regular rate, rhythm, no edema, no murmur Abdomen: soft Neurologic/Psychiatric: alert, oriented x 3 Skin: warm/dry (left incision intact, some ecchymosis and mild hematoma) Assessment and Plan Impression: 1. TBS s/p ppm 06/22/2017 2. pA. flutter on sotalol and coumadin 3. HLD 4. h/o ascending aortic aneurysm s/p repair with stent 2015 Plan: -Ok for discharge home today -Continue home medications-with higher dose of sotalol -Pt not allowed to lift the left elbow over the left shoulder for 1 month or the left more than 10 pounds with the arm for 2 weeks -Shower tomorrow -Device and wound check in 7-10 days in [facility] -if he has continue flutter would consider a flutter ablation in a month Discharge planning: home Medications: Medications Administered Medications (Trade) Dose Ordered Sig/Shanice Route Start Time Stop Time Status Last Admin Dose Admin Cefazolin Sodium 55 ml @ 100 mls/hr PREOP IV 06/22/17 06:00 06/22/17 18:00 DC 06/22/17 06:00 100 MLS/HR Lactated Ringer's 1,000 ml @ 15 mls/hr Q24H IV 06/22/17 06:00 06/22/17 16:27 DC 06/22/17 06:00 15 MLS/HR Midazolam HCl (Versed Inj) 5 mg STK-MED ONCE .ROUTE 06/22/17 13:52 06/22/17 13:53 DC 06/22/17 13:52 5 MG Fentanyl Citrate (Fentanyl Inj) 100 mcg STK-MED ONCE .ROUTE 06/22/17 13:52 06/22/17 13:53 DC 06/22/17 13:52 100 MCG Fentanyl Citrate (Fentanyl Inj) 100 mcg STK-MED ONCE .ROUTE 06/22/17 14:50 06/22/17 14:51 DC 06/22/17 14:50 25 MCG Midazolam HCl (Versed Inj) 2 mg STK-MED ONCE .ROUTE 06/22/17 14:50 06/22/17 14:51 DC 06/22/17 14:50 1 MG Aspirin (Ecotrin Tab) 81 mg DAILY PO 06/23/17 09:00 07/23/17 08:59 06/23/17 08:26 81 MG Atorvastatin Calcium (Lipitor Tab) 20 mg DAILY PO 06/23/17 09:00 07/23/17 08:59 06/23/17 08:26 20 MG Sotalol HCl (Betapace Tab) 80 mg BID PO 06/22/17 21:00 07/22/17 20:59 06/23/17 08:26 80 MG Warfarin Sodium (Coumadin Tab) 2 mg DAILY@16 PO 06/22/17 16:00 07/22/17 15:59 06/22/17 17:58 2 MG Miscellaneous (Iv Fluids Completed) 1 ea PRN PRN N/A 06/22/17 16:00 06/22/18 15:59 06/22/17 16:22 1 EA Lab Results: ecg: ap 60bpm QTc 432ms Last 24 Hours Test 06/22/17 12:11 06/22/17 16:21 06/23/17 05:18 Prothrombin Time 15.3 SECONDS 12.7 SECONDS Prothromb Time International Ratio 1.4 1.2 Activated Partial Thromboplast Time 31.4 SECONDS Partial Thromboplastin Ratio 1.2 White Blood Count 5.09 K/uL Red Blood Count 4.63 M/uL Hemoglobin 15.2 g/dL Hematocrit 44.2 % Mean Corpuscular Volume 95.5 fL Mean Corpuscular Hemoglobin 32.8 pg Mean Corpuscular Hemoglobin Concent 34.4 g/dl RDW Standard Deviation 44.9 fL RDW Coefficient of Variation 13.0 % Platelet Count 113 K/uL Mean Platelet Volume 9.4 fL SR/AP PPM interrogation: Stable and wnl lead testing from implant
[2017-06-23 09:47] VITALS: BP 120/74; PULSE 64; TEMP 36.8; O2SAT 95
== END 2017-06-23 10:25 | disposition home or self-care (01) ==
LOC: C.ACU 11:21 → ENRESERV 14:58 → C.MED 15:25
PROVIDERS: ADMIT Internal Medicine; ATTEND Internal Medicine
DX: I49.5 Sick sinus syndrome (principal); I48.3 Typical atrial flutter; Z79.01 Long term (current) use of anticoagulants; Z87.442 Personal history of urinary calculi; E78.5 Hyperlipidemia, unspecified; Z79.82 Long term (current) use of aspirin; N40.0 Benign prostatic hyperplasia without lower urinary tract symptoms; Z86.12 Personal history of poliomyelitis; Z90.89 Acquired absence of other organs; Z80.6 Family history of leukemia; Z87.891 Personal history of nicotine dependence

== ENCOUNTER 2017-09-06 19:03 | Observation (INO) | payer OTHER ==
[~2017-09-06] VITALS: Ht 182.9 cm; Wt 98.0 kg
[~2017-09-06 19:03] MED LIST changes: -ASPI81TA28 PO; -ATOR-22 PO; -CEFAZOLIN 1000MG/55 ML D5W IV SCH; -DOCU-94 PO; -GARL1TAB12 PO; -LACTATED RINGER'S 1000ML 1,000 ML IV SCH; -MRLP17X PO; -PANT40TA PO
[2017-09-06] MEDS ORDERED: SOTALOL HCL 80 MG TAB PO ONE ×2 (19:45→21:30)
--- NOTE | 2017-09-06 20:00 | DIAGNOSTIC IMAGING REPORT ---
CHEST ONE VIEW PORTABLE CLINICAL HISTORY: cp dyspnea COMPARISON STUDY: 06/23/2017 FINDINGS: Moderate stable cardiomegaly. Bipolar cardiac pacemaker in good position. Aortic stent unchanged. Chronic parenchymal prominence left base. No acute infiltrate. IMPRESSION: Chronic and postoperative change. Moderate stable cardiomegaly. No acute process. The above report was generated using voice recognition software. It may contain grammatical, syntax or spelling errors. Electronically signed by: Jad Galaviz M.D. 09/06/2017 7:59 PM Dictated Date/Time: 09/06/2017 7:58 PM
--- NOTE | 2017-09-06 20:13 | DIAGNOSTIC IMAGING REPORT ---
HEAD WITHOUT CONTRAST (CT) CT DOSE: 614.27 mGy.cm HISTORY: Mental status change benavides eval for bleed TECHNIQUE: Multiaxial CT images of the head were performed without the use of intravenous contrast. A dose lowering technique was utilized adhering to the principles of ALARA. Comparison: None. Findings: The paranasal sinuses and mastoid air cells are clear. The calvarium and skull base are intact. The ventricles and sulci are within normal limits. There is no mass, hematoma, midline shift, or acute infarct. Impression: No acute intracranial abnormality. Age-related change The above report was generated using voice recognition software. It may contain grammatical, syntax or spelling errors. Electronically signed by: Jad Galaviz M.D. 09/06/2017 8:12 PM Dictated Date/Time: 09/06/2017 8:11 PM
[2017-09-06 20:22] LABS: BUN/CREATININE RATIO 21.2 (10-20); CALCIUM 8.7 mg/dl (8.5-10.1); CREATININE 0.77 mg/dl (0.60-1.40); MAGNESIUM 1.8 mg/dl (1.8-2.4)
[2017-09-06 20:33] LABS: THYROID STIMULATING HORMONE 1.38 uIu/ml (0.300-4.500)
[2017-09-06 21:00] LABS: BASO % 0.1 %; BASO ABS # 0.01 K/uL (0-0.2); COMPLETE YES; EOS % 0.5 %; HEMATOCRIT 44.7 % (42-52); IG% 0.2 %; LYMPH % 18.2 %; LYMPH ABS # 1.68 K/uL (1.2-3.4); MEAN CELL VOLUME 96.3 fL (80-100); MEAN CORPUSCULAR HEMOGLOBIN 33.2 pg (25-34); MEAN CORPUSCULAR HGB CONC 34.5 g/dl (32-36); MEAN PLATELET VOLUME 10.1 fL (7.4-10.4); MONO % 18.4 %; NEUT % 62.6 %; PLATELET COUNT 138 K/uL (130-400); RED BLOOD COUNT 4.64 M/uL (4.7-6.1); WHITE BLOOD COUNT 9.25 K/uL (4.8-10.8)
[2017-09-06 21:05] LABS: INR 2.6 (0.9-1.1); PARTIAL THROMBOPLASTIN RATIO 1.5; PROTHROMBIN TIME (PATIENT) 26.4 SECONDS (9.0-12.0)
[2017-09-06] MEDS ORDERED: METOPROLOL TARTRATE 1 MG/ML VIAL IV STA (21:09)
[2017-09-06] MEDS ORDERED: ONDANSETRON INJ 2 MG/ML 2 ML VIAL IV PRN (22:15)
[2017-09-06] MEDS ORDERED: ACETAMINOPHEN 325 MG TAB PO PRN (22:15)
[2017-09-06] MEDS ORDERED: SODIUM CHLORIDE 0.9% 500ML 500 ML IV ONE (22:30)
[2017-09-06 22:38] LABS: MANUAL MICROSCOPIC REQUIRED? NO; REVIEW REQ? NO; URINE APPEARANCE CLEAR (CLEAR); URINE BILIRUBIN NEG (NEG); URINE COLOR YELLOW; URINE EPITHELIAL CELL AUTO 0-5 /lpf (0-5); URINE NITRITE NEG (NEG); URINE SPECIFIC GRAVITY 1.017 (1.000-1.030); UROBILINOGEN NEG (NEG); ZZUR CULT IF INDIC CLEAN CATCH NO
[2017-09-06] MEDS ORDERED: MAGNESIUM HYDROXIDE SUSP 30 ML UDC PO PRN (23:15)
--- NOTE | 2017-09-06 23:21 | History and Physical ---
History & Physical Date & Time of Service: Sep 06, 2017 at 22:36 Chief Complaint: High Pulse, Has Pacemaker Primary Care Physician: Estiven Salcido D.O. History of Present Illness Source: patient, clinic records, hospital records Pt is 81 y/o M with PMH tachy-pete syndrome with pacer placed 06/2017, hx thoracic aortic aneurysm s/p repair June 2016, CAD on cardiac cath 2015, hx atrial fibrillation presented to ER with c/o not feeling well and tachycardia. Pt states that yesterday he started feeling fatigued, chills, and started with VALLES and felt like he was getting the flu. Took temp at home and reported as 97F. Reports chronic dry cough in mornings for >6 months that resolves throughout the day, denies any worsening cough. Today some nausea. Ate one taco today, didn't drink much. States today increased VALLES described as throbbing from top of head to neck and felt like heart beating in his head. He reports taking his pulse and was elevated and came to ER. He reports taking morning meds, but didn't take his night meds. Pt reports drinking 1 shot of hard liquor daily. Hx influenza vaccine reported by pt a couple of weeks ago. Hx ECHO 06/2017: EF: 55-60%. Denies diaphoresis, V/D/C,dizziness, syncope, vision changes, neck pain, CP, SOB, orthopnea, palpitations, sore throat, choking, otalgia, rhinorrhea, abdominal pain, paresthesias, weakness, extremity weakness, extremity edema, rashes, urinary symptoms. Denies hx CHF. In ER pt tachy 140-160. EKG: sinus tachy rate 143. INR: 2.6. Magnesium: 1.8, Neg POC troponin, no leukocytosis. TSH: 1.38. Negative CT head, CXR cardiomegaly , no infiltrate. BP initially 160/125 down to 123/89. Temp: 37.6C. Pt given his night time dose of sotalol 80mg po and given dose Lopressor 2.5mg IV, remained tachy 140. Pt reports VALLES and pounding heartbeat sensation in head has resolved. ER contacted Dr Lopez recommend night dose of his sotalol and Lopressor trial & had pacer interrogation. 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 14 Status: Chronic (3) History of atrial flutter Permanent Comment: in [facility] and subsequently transferred to [facility] May 02, 2017 with atrial flutter with RVR with spontaneous conversion to sinus rhythm on IV diltiazem Status: Chronic (4) Kidney stone Status: Chronic (5) LAFB (left anterior fascicular block) Status: Chronic (6) Nonobstructive atherosclerosis of coronary artery Permanent Comment: mild nonobstructive coronary atherosclerosis by cardiac catheterization 2015 Status: Chronic (7) Tachy-pete syndrome Status: Chronic Surgical Problems: (1) H/O umbilical hernia repair Status: Chronic (2) History of carpal tunnel surgery Status: Chronic (3) Hx of cardiac pacemaker Status: Resolved (4) S/P thoracic aortic aneurysm repair Permanent Comment: 06/2016; endovascular repair of thoracic aortic aneurysm June, with associated stage left carotid subclavian bypass with 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; [place] [facility] [place]: Chronic (5) S/P tonsillectomy Status: Chronic Family History FH: cancer SON ( of leukemia) Social History Smoking Status: Former Smoker (Quit 1966, smoked 1ppd x 16 years) Smokeless Tobacco Use: No Alcohol Use: 1 shot every night Drug Use: none Marital Status: Occupational Status: retired Allergies Coded Allergies: Sulfamethoxazole w/Trimethoprim (Verified Allergy, Unknown, HIVES, 06/22/17 ) Home Medications Scheduled Aspirin (Aspirin Ec), 81 MG PO DAILY Atorvastatin (Lipitor), 20 MG PO DAILY Garlic (Sm Garlic), 500 MG PO DAILY Sotalol HCl (Sotalol HCl), 80 MG PO BID Warfarin Sod (Coumadin), 2 TABS PO UD Warfarin Sodium (Coumadin), 5 MG PO UD Scheduled PRN Polyethylene (Miralax), 17 GM PO DAILY PRN for Constipation Review of Systems Constitutional: + problem reported (see HPI), No weight loss Eyes: No worsening of vision, No eye pain, No redness, No discharge, No diplopia ENT: + hearing loss (wears hearing aids, denies worsening hearing loss), No unusual epistaxis, No nasal symptoms, No sore throat, No trouble swallowing Respiratory: No sputum, No wheezing, No shortness of breath, No dyspnea on exertion, No dyspnea at rest, No hemoptysis Cardiovascular: + problem reported (see HPI) Abdomen: + nausea, + problem reported (see HPI), No pain, No vomiting, No diarrhea, No constipation, No GI bleeding Musculoskeletal: No joint pain, No muscle pain, No swelling, No calf pain Genitourinary - Male: No hematuria, No dysuria, No urinary frequency, No urinary urgency, No urinary hesitancy, No urinary retention Neurologic: No paralysis, No weakness, No numbness/tingling, No vertigo Psychiatric: No depression symptoms, No anxiety Endocrine: No excessive thirst, No excessive urination Hematologic / Lymphatic: No abnormal bleeding/bruising, No clotting problems, No swollen lymph nodes Integumentary: No rash, No itch Physical Exam Vital Signs Date Time Temp Pulse Resp B/P (MAP) Pulse Ox O2 Delivery O2 Flow Rate FiO2 09/06/17 22:30 137 20 127/98 93 Room Air 09/06/17 21:49 37.2 139 20 129/85 94 Room Air 09/06/17 21:16 140 20 123/89 95 Room Air 09/06/17 21:12 143 100/72 09/06/17 20:31 143 20 110/72 94 Room Air 09/06/17 19:41 94 Room Air 09/06/17 19:35 94 Room Air 09/06/17 19:31 161 09/06/17 19:13 37.6 116 20 160/125 95 Room Air General Appearance: WD/WN, no apparent distress Head: normocephalic, atraumatic Eyes: normal inspection, PERRL, EOMI, sclerae normal ENT: pharynx normal, + pertinent finding (hard of hearing, mucous membranes moist) Neck: supple, no JVD, trachea midline Respiratory/Chest: chest non-tender, lungs clear, normal breath sounds, no respiratory distress, no accessory muscle use Cardiovascular: no murmur, normal peripheral pulses, + tachycardia (sounds regular) Abdomen/GI: normal bowel sounds, non tender, soft Extremities/Musculoskelatal: normal inspection, no calf tenderness, normal capillary refill, no pedal edema, normal range of motion, non-tender Neurologic/Psych: alert, normal mood/affect, oriented x 3 Skin: normal color, warm/dry, no rash Diagnostics Laboratory Results Results Past 24 Hours Test 09/06/17 19:31 09/06/17 19:48 09/06/17 22:25 Range/Units White Blood Count 9.25 4.8-10.8 K/uL Red Blood Count 4.64 4.7-6.1 M/uL Hemoglobin 15.4 14.0-18.0 g/dL Hematocrit 44.7 42-52 % Mean Corpuscular Volume 96.3 80-100 fL Mean Corpuscular Hemoglobin 33.2 25-34 pg Mean Corpuscular Hemoglobin Concent 34.5 32-36 g/dl Platelet Count 138 130-400 K/uL Mean Platelet Volume 10.1 7.4-10.4 fL Neutrophils (%) (Auto) 62.6 % Lymphocytes (%) (Auto) 18.2 % Monocytes (%) (Auto) 18.4 % Eosinophils (%) (Auto) 0.5 % Basophils (%) (Auto) 0.1 % Neutrophils # (Auto) 5.79 1.4-6.5 K/uL Lymphocytes # (Auto) 1.68 1.2-3.4 K/uL Monocytes # (Auto) 1.70 0.11-0.59 K/uL Eosinophils # (Auto) 0.05 0-0.5 K/uL Basophils # (Auto) 0.01 0-0.2 K/uL RDW Standard Deviation 47.7 36.4-46.3 fL RDW Coefficient of Variation 13.6 11.5-14.5 % Immature Granulocyte % (Auto) 0.2 % Immature Granulocyte # (Auto) 0.02 0.00-0.02 K/uL Prothrombin Time 26.4 9.0-12.0 SECONDS Prothromb Time International Ratio 2.6 0.9-1.1 Activated Partial Thromboplast Time 38.7 21.0-31.0 SECONDS Partial Thromboplastin Ratio 1.5 Sodium Level 134 136-145 mmol/L Potassium Level 4.0 3.5-5.1 mmol/L Chloride Level 104 98-107 mmol/L Carbon Dioxide Level 24 21-32 mmol/L Anion Gap 6.0 3-11 mmol/L Blood Urea Nitrogen 16 7-18 mg/dl Creatinine 0.77 0.60-1.40 mg/dl Est Creatinine Clear Calc Drug Dose 88.9 ml/min Estimated GFR () 97.3 Estimated GFR (Non- 83.9 BUN/Creatinine Ratio 21.2 10-20 Random Glucose 120 70-99 mg/dl Calcium Level 8.7 8.5-10.1 mg/dl Magnesium Level 1.8 1.8-2.4 mg/dl Thyroid Stimulating Hormone (TSH) 1.380 0.300-4.500 uIu/ml Free Thyroxine 1.13 0.80-1.60 ng/dl Bedside Troponin I < 0.030 0-0.045 ng/ml Diagnostic Radiology CXR: IMPRESSION: Chronic and postoperative change. Moderate stable cardiomegaly. No acute process. CT HEAD: Impression: No acute intracranial abnormality. Age-related change Impression Assessment and Plan TACHYCARDIA Sinus tachycardia currently. Pt with hx tachy-pete syndrome and had pacer placed 06/2017. Hx atrial flutter. Pt on coumadin, sotalol and ASA. Pt given his routine dose sotalol in ER tonight. given lopressor 2.5mg IV with HR decreased to high 130's. Pt afebrile upon recheck temp in ER. CXR without infiltrate. Pt poor po intake today, BUN/CR ratio >20, suspect some dehydration. INR: 2.6. TSH : 1.38. pacer interrogation report:AT/AF 20 episodes, 25 episodes SVT, 1 episode non-sustained VT -checking flu swab and U/A to r/o infectious etiology -NSS 500ml bolus followed by 75ml/hr -Lopressor 2.5mg IV Q4 hrs prn pulse >110 -NPO after midnight -cardiology consult -continue sotalol -continue Coumadin -continue ASA DYSLIPIDEMIA -continue lipitor HISTORY OF THORACIC AORTIC ANEURYSM S/p endovascular repair of thoracic aortic aneurysm June, with associated stage left carotid subclavian bypass with 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; [place] [facility] [place] Imaging stable 03/2017. follows with Dr Juan Luis DOUGLAS CAD Cardiac Cath 2015 - mild non-obstructive dz -continue ASA -continue lipitor DVT PROPHYLAXIS -coumadin DISPOSITION -admit tele -Full Code as per discussion with pt -Follows with Dr Omari Silva for routine care Pt was seen with Dr Bosch. See addendum ATTENDING ADDENDUM care coordinated with ELIAS Montiel please refer to her notes for full details, I agree with her notes patient seen and examined, records reviewed by myself as well on exam, patient seen resting in bed, not in distress states he is starting to feel improved compared to admission no chest pain, dyspnea, dizziness, nausea no other symptoms VS noted and reviewed oriented x 3 , not in distress, speaks in sentences with no effort nor accessory muscle use tachycardic, regular rhythm, no murmurs clear breath sounds bilaterally non distended, soft, nontender no bipedal edema, erythema, warmth no neuro deficits WBC 9.2 Hg 15.4 Crea 0.77 ASSESSMENT/PLAN> TACHYCARDIA HISTORY OF TACHY-PETE SYNDROME, S.P PACEMAKER - pacemaker interrogation Lopressor 2.5mg IV q4h PRN continue usual Sotalol - cardiology consulted HISTORY OF A FLUTTER - continue coumadin other diagnoses and plan of care as per ELIAS Montiel notes Amando Bosch MD Level of Care Telemetry Resuscitation Status FULL RESUSCITATION VTE Prophylaxis VTE Risk Assessment Done? Y/N: Yes Risk Level: Moderate Given or contraindicated: Warfarin (Coumadin) Additional Copies To Estiven Salcido D.O.
[2017-09-06] MEDS ORDERED: IV FLUIDS COMPLETED PRN (23:45)
--- NOTE | 2017-09-06 23:56 | EMERGENCY ROOM VISIT NOTE ---
History Report prepared by Rodolfo: Violet Mcdermott Under the Supervision of: Dr. Navi Nicole M.D. First contact with patient: 19:25 Chief Complaint: TACHYCARDIA Stated Complaint: HIGH PULSE, HAS PACEMAKER History of Present Illness The patient is an 81 year old male who presents to the Emergency Room with complaints of constant tachycardia for 5 hours. The patient states that yesterday he felt like he was getting the flu. He reports that he took an Excedrin last night. He states that he woke up from sleeping early this morning and has had a headache all day. The patient states that he took his normal medications this morning, but notes that he did not take them tonight. He is due for his evening sotalol. He reports that he took a nap to try to help it and had no relief. He complains of being able to feel his pulse from his head down to his neck. He currently rates the pain as an 8/10 in severity. The patient denies chest pain and shortness of breath. He complains of nausea today. The patient denies ever feeling like he was going to pass out. He reports that when he tried to take his pulse he felt like there was a pause between some of them. He reports that he got the pacemaker since his heart rate was going under 30 beats per minute. The patient denies vomiting and fever. He notes he has a [employer] Pacemaker. Source of History: patient Onset: 5 hours ago Position: other (global) Symptom Intensity: different readings from different machines Quality: other (tachycardia) Timing: constant Modifying Factors (Relieving): other (none) Associated Symptoms: + headache, + nausea, No fevers, No chest pain, No SOB , No vomiting Note: The patient denies feeling like he was going to pass out. Review of Systems See HPI for pertinent positives & negatives. A total of 10 systems reviewed and were otherwise negative. Past Medical & Surgical Medical Problems: (1) Atrial flutter with rapid ventricular response (2) BPH (benign prostatic hyperplasia) (3) H/O poliomyelitis (4) History of atrial flutter (5) Kidney stone (6) LAFB (left anterior fascicular block) (7) Nonobstructive atherosclerosis of coronary artery (8) Tachy-marcello syndrome (9) Tachycardia Surgical Problems: (1) H/O umbilical hernia repair (2) History of carpal tunnel surgery (3) Hx of cardiac pacemaker (4) S/P thoracic aortic aneurysm repair (5) S/P tonsillectomy Family History FH: cancer SON ( of leukemia) Social History Smoking Status: Never Smoker Marital Status: Housing Status: lives with family Occupation Status: retired Current/Historical Medications Scheduled Aspirin (Aspirin Ec), 81 MG PO DAILY Atorvastatin (Lipitor), 20 MG PO DAILY Garlic (Sm Garlic), 500 MG PO DAILY Sotalol HCl (Sotalol HCl), 80 MG PO BID Warfarin Sod (Coumadin), 2 TABS PO UD Warfarin Sodium (Coumadin), 5 MG PO UD Scheduled PRN Polyethylene (Miralax), 17 GM PO DAILY PRN for Constipation Allergies Coded Allergies: Sulfamethoxazole w/Trimethoprim (Verified Allergy, Unknown, HIVES, 06/22/17 ) Physical Exam Vital Signs Date Time Temp Pulse Resp B/P (MAP) Pulse Ox O2 Delivery O2 Flow Rate FiO2 09/06/17 22:30 137 20 127/98 93 Room Air 09/06/17 21:49 37.2 139 20 129/85 94 Room Air 09/06/17 21:16 140 20 123/89 95 Room Air 09/06/17 21:12 143 100/72 09/06/17 20:31 143 20 110/72 94 Room Air 09/06/17 19:41 94 Room Air 09/06/17 19:35 94 Room Air 09/06/17 19:31 161 09/06/17 19:13 37.6 116 20 160/125 95 Room Air Physical Exam Constitutional: Vital signs reviewed. Eyes: Pupils are equal round reactive to light. Conjunctiva are noninjected. ENT: Pharynx is clear without erythema or exudate. Mucous membranes are moist. Neck supple without meningeal signs. Respiratory: Clear to auscultation bilaterally. Breath sounds are equal bilaterally. Cardiovascular: Tachycardic heart rate in the 140s. Regular rhythm. GI: Soft, nondistended and nontender. Bowel sounds are present. Musculoskeletal: No peripheral edema. No lower extremity tenderness. Integumentary: No cyanosis. Neurological: The patient is awake and alert. No focal deficits. Psychiatric: Normal affect. Medical Decision & Procedures ER Provider Diagnostic Interpretation: Radiology results as stated below per my review and the radiologist's interpretation: HEAD WITHOUT CONTRAST (CT) CT DOSE: 614.27 mGy.cm HISTORY: Mental status change benavides eval for bleed TECHNIQUE: Multiaxial CT images of the head were performed without the use of intravenous contrast. A dose lowering technique was utilized adhering to the principles of ALARA. Comparison: None. Findings: The paranasal sinuses and mastoid air cells are clear. The calvarium and skull base are intact. The ventricles and sulci are within normal limits. There is no mass, hematoma, midline shift, or acute infarct. Impression: No acute intracranial abnormality. Age-related change The above report was generated using voice recognition software. It may contain grammatical, syntax or spelling errors. Electronically signed by: Jad Galaviz M.D. 09/06/2017 8:12 PM Dictated Date/Time: 09/06/2017 8:11 PM CHEST ONE VIEW PORTABLE CLINICAL HISTORY: cp dyspnea COMPARISON STUDY: 06/23/2017 FINDINGS: Moderate stable cardiomegaly. Bipolar cardiac pacemaker in good position. Aortic stent unchanged. Chronic parenchymal prominence left base. No acute infiltrate. IMPRESSION: Chronic and postoperative change. Moderate stable cardiomegaly. No acute process. The above report was generated using voice recognition software. It may contain grammatical, syntax or spelling errors. Electronically signed by: Jad Galaviz M.D. 09/06/2017 7:59 PM Dictated Date/Time: 09/06/2017 7:58 PM Laboratory Results 09/06/17 19:31 Red Blood Count 4.64, Mean Corpuscular Volume 96.3, Mean Corpuscular Hemoglobin 33.2, Mean Corpuscular Hemoglobin Concent 34.5, Mean Platelet Volume 10.1, Neutrophils (%) (Auto) 62.6, Lymphocytes (%) (Auto) 18.2, Monocytes (%) (Auto) 18.4, Eosinophils (%) (Auto) 0.5, Basophils (%) (Auto) 0.1, Neutrophils # (Auto ) 5.79, Lymphocytes # (Auto) 1.68, Monocytes # (Auto) 1.70, Eosinophils # (Auto ) 0.05, Basophils # (Auto) 0.01 09/06/17 19:31 Test 09/06/17 19:31 09/06/17 19:48 09/06/17 22:25 White Blood Count 9.25 K/uL (4.8-10.8) Red Blood Count 4.64 M/uL (4.7-6.1) Hemoglobin 15.4 g/dL (14.0-18.0) Hematocrit 44.7 % (42-52) Mean Corpuscular Volume 96.3 fL (80-100) Mean Corpuscular Hemoglobin 33.2 pg (25-34) Mean Corpuscular Hemoglobin Concent 34.5 g/dl (32-36) Platelet Count 138 K/uL (130-400) Mean Platelet Volume 10.1 fL (7.4-10.4) Neutrophils (%) (Auto) 62.6 % Lymphocytes (%) (Auto) 18.2 % Monocytes (%) (Auto) 18.4 % Eosinophils (%) (Auto) 0.5 % Basophils (%) (Auto) 0.1 % Neutrophils # (Auto) 5.79 K/uL (1.4-6.5) Lymphocytes # (Auto) 1.68 K/uL (1.2-3.4) Monocytes # (Auto) 1.70 K/uL (0.11-0.59) Eosinophils # (Auto) 0.05 K/uL (0-0.5) Basophils # (Auto) 0.01 K/uL (0-0.2) RDW Standard Deviation 47.7 fL (36.4-46.3) RDW Coefficient of Variation 13.6 % (11.5-14.5) Immature Granulocyte % (Auto) 0.2 % Immature Granulocyte # (Auto) 0.02 K/uL (0.00-0.02) Prothrombin Time 26.4 SECONDS (9.0-12.0) Prothromb Time International Ratio 2.6 (0.9-1.1) Activated Partial Thromboplast Time 38.7 SECONDS (21.0-31.0) Partial Thromboplastin Ratio 1.5 Anion Gap 6.0 mmol/L (3-11) Est Creatinine Clear Calc Drug Dose 88.9 ml/min Estimated GFR () 97.3 Estimated GFR (Non- 83.9 BUN/Creatinine Ratio 21.2 (10-20) Calcium Level 8.7 mg/dl (8.5-10.1) Magnesium Level 1.8 mg/dl (1.8-2.4) Thyroid Stimulating Hormone (TSH) 1.380 uIu/ml (0.300-4.500) Free Thyroxine 1.13 ng/dl (0.80-1.60) Bedside Troponin I < 0.030 ng/ml (0-0.045) Urine Color YELLOW Urine Appearance CLEAR (CLEAR) Urine pH 7.0 (4.5-7.5) Urine Specific [place] 1.017 (1.000-1.030) Urine Protein TRACE (NEG) Urine Glucose (UA) NEG (NEG) Urine Ketones 2+ (NEG) Urine Occult Blood 2+ (NEG) Urine Nitrite NEG (NEG) Urine Bilirubin NEG (NEG) Urine Urobilinogen NEG (NEG) Urine Leukocyte Esterase NEG (NEG) Urine WBC (Auto) 1-5 /hpf (0-5) Urine RBC (Auto) >30 /hpf (0-4) Urine Hyaline Casts (Auto) 1-5 /lpf (0-5) Urine Epithelial Cells (Auto) 0-5 /lpf (0-5) Urine Bacteria (Auto) NEG (NEG) Laboratory results as reviewed by me. Medications Administered Medications (Trade) Dose Ordered Sig/Shanice Route Start Time Stop Time Status Last Admin Dose Admin Sotalol HCl (Betapace Tab) 40 mg NOW ONCE PO 09/06/17 19:45 09/06/17 19:46 DC 09/06/17 19:59 40 MG Metoprolol Tartrate (Lopressor Iv) 2.5 mg NOW STAT IV 09/06/17 21:09 09/06/17 21:10 DC 09/06/17 21:12 2.5 MG Sotalol HCl (Betapace Tab) 40 mg NOW ONCE PO 09/06/17 21:30 09/06/17 21:31 DC 09/06/17 21:48 40 MG ECG Indication: tachycardia Rate (beats per minute): 143 Rhythm: atrial flutter Findings: nonspecific-ST abn, other (QRS is 108 milliseconds) ED Course 1927: The patient was evaluated in room A11B. A complete history and physical exam was performed. 1944: Ordered Sotalol HCl 40 mg PO. 2055: I reevaluated the patient. He states that his head pain and feeling of pulse in his head is gone. His heart rate is still in the 140s and his blood pressure dropped to 110/72. 2104: I discussed the patient's case with Dr. Lopez. He states that we should try a Lopressor. He is going to call the nuclear engineering technician. 2108: Ordered Lopressor Iv 2.5 mg IV. 2119: I spoke with Dr. Lopez and he states that he should be given another 40 mg of Sotalol. He wants him admitted to medicine and no PO after midnight for possible cardiac aversion. 2124: I talked to the patient and his father about the plan. They agree with it. 2127: I spoke with Dr. Thorpe. We discussed the patient and his results. The patient will be further evaluated by her. 2129: Ordered Sotalol HCl 40 mg PO. 2201: I reevaluated the patient and his heart rate is 140. He just received the additional Sotalol 10 minutes ago. We are going to watch for an effect. Medical Decision This is an 85-year-old male who presents with tachycardia, headache and high blood pressure. Differential diagnosis includes dysrhythmia, atrial fibrillation, SVT, metabolic derangement, intracranial hemorrhage, medication noncompliance. I did perform a limited focused review of portions of the patient 's old chart on the electronic medical record. The patient had a pacemaker placed June 22 for Tachy-Marcello Syndrome. I did evaluate the patient as noted above. The patient presents with tachycardia and a headache. He describes his headache as feeling his pulse from his chest into his head. IV access was established. The patient was placed on a continuous electronic device monitor. I did order and personally review the patient's 12-lead EKG and chest x-ray as described above. Patient has a flutter with RVR. I did order and review the patient's blood work as noted in the electronic medical record. Electrolytes are unremarkable other than some mild hyponatremia. I did treated with sotalol 40 mg orally. I did order a CT of the head. I did review the images myself as well as the radiology report as described above. There is no evidence of acute intracranial abnormality. On reassessment the patient states his headache is gone but he remains tachycardic. His blood pressure did drop slightly. I did have the pacemaker interrogated. The patient appeared to have a flutter with RVR. I did discuss the case with the escape wheel tooth cutter emergency telecommunications dispatcher. He recommended IV Lopressor and an additional dose of 40 g of sotalol. I did treat patient with Lopressor 2.5 mg IV. He was also given sotalol 40 mg orally. I did discuss the case with the hospitalist and supervisor case loading. The patient will be kept nothing by mouth after midnight. Should he remain in atrial flutter he will be cardioverted electrically in the morning. Medication Reconcilliation Current Medication List: was personally reviewed by me Blood Pressure Screening Patient's blood pressure: Elevated blood pressure Blood pressure disposition: Referred to PCP Consults Time Called: 2057 Consulting Physician: Dr. [facility] Returned Call: 2104 I discussed the patient's case with Dr. Lopez. He states that we should try a Lopressor. He is going to call the nuclear engineering technician. Additional Consults: Time Called: 2117 Consulted Physician: Dr. Lopez Returned Call: 2119 Additional Comments: I spoke with Dr. Lopez and he states that he should be given another 40 mg of Sotalol. He wants him admitted to medicine and no PO after midnight for possible cardiac aversion. Time Called: 2121 Consulted Physician: Dr. Thorpe Returned Call: 2127 Additional Comments: I spoke with Dr. Thorpe. We discussed the patient and his results. The patient will be further evaluated by her. Impression Primary Impression: Atrial flutter with rapid ventricular response Critical Care I have personally spent more than 30 minutes of critical care time in the direct management of this patient. This includes bedside care, interpretation of diagnostic studies and testing, discussion with consultants and patient, and other required patient management activities. This time is in excess of all separately billable procedures. Scribe Attestation The scribe's documentation has been prepared under my direct and personally reviewed by me in its entirety. I confirm that the note above accurately reflects all work, treatment, procedures, and medical decision making performed by me. Departure Information Dispostion Being Evaluated By Hospitalist Estiven Murphy D.O. (PCP) Patient Instructions My [facility]
[2017-09-07] VITALS (22 sets, daily range): BP systolic 74–128; BP diastolic 42–80; PULSE 62–138; TEMP 36.5–37.3; O2SAT 93–98; Ht 182.9 cm; Wt 98.0 kg
[2017-09-07] MEDS ORDERED: METOPROLOL TARTRATE 1 MG/ML VIAL IV. SCH
[2017-09-07] MEDS: SODIUM CHLORIDE 0.9% 1000ML 1,000 ML IV SCH ×2 (00:11→12:18)
[2017-09-07] MEDS: METOPROLOL TARTRATE 1 MG/ML VIAL IV PRN ×2 (00:11→04:33)
[2017-09-07 02:38] LABS: INFLUENZA A PCR Neg for Influ A (NEG); INFLUENZA B PCR Neg for Influ B (NEG)
[2017-09-07 07:59] LABS: HEMATOCRIT 40.8 % (42-52); MEAN CELL VOLUME 96.9 fL (80-100); MEAN CORPUSCULAR HEMOGLOBIN 32.8 pg (25-34); MEAN CORPUSCULAR HGB CONC 33.8 g/dl (32-36); PLATELET COUNT 124 K/uL (130-400); RED BLOOD COUNT 4.21 M/uL (4.7-6.1); WHITE BLOOD COUNT 7.48 K/uL (4.8-10.8)
[2017-09-07] MEDS: ASPIRIN 81 MG ECTAB PO SCH (08:02)
[2017-09-07] MEDS: ATORVASTATIN 20 MG TAB PO SCH (08:03)
[2017-09-07 08:07] LABS: INR 2.2 (0.9-1.1); PROTHROMBIN TIME (PATIENT) 23.2 SECONDS (9.0-12.0)
[2017-09-07 08:31] LABS: BUN/CREATININE RATIO 22.3 (10-20); CALCIUM 8.2 mg/dl (8.5-10.1); CREATININE 0.64 mg/dl (0.60-1.40); MAGNESIUM 1.9 mg/dl (1.8-2.4); POTASSIUM 3.5 mmol/L (3.5-5.1)
[2017-09-07] MEDS ORDERED: SOTALOL HCL 80 MG TAB PO SCH (09:00)
[2017-09-07] MEDS ORDERED: POTASSIUM CHLORIDE 10 MEQ TABCR PO ONE (09:30)
[2017-09-07] MEDS ORDERED: POTASSIUM CHLORIDE 10 MEQ TABCR PO STA (11:31)
--- NOTE | 2017-09-07 13:26 | CARDIOLOGY CONSULTATION ---
DATE OF CONSULTATION: 09/07/2017 REFERRING PHYSICIAN: Dr. Montiel. INDICATIONS: Atrial fibrillation/flutter with rapid ventricular response. HISTORY OF PRESENT ILLNESS: The patient is an 81-year-old male with complex history, which includes: 1. Thoracic aortic aneurysm, status post endovascular repair in June 2016. 2. Staged left subclavian bypass with Amplatzer device occlusion of the proximal left subclavian. 3. Mild nonobstructive coronary artery disease by cardiac catheterization in 2015. 4. Paroxysmal atrial flutter with rapid ventricular response, now on sotalol therapy. 5. 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 6. Abdominal aortic aneurysm. 7. Hyperlipidemia, on therapy. The patient presents now noting having begun sensation of tachypalpitations approximately 3-4 days prior to hospital presentation. He was feeling poorly. It is not certain if this represented an acute illness or "the flu." He was afebrile at home, but ultimately presented to the Emergency Room after noting heart pounding vigorously for more than 24 hours. Denies any chest pains. Notes no dizziness, lightheadedness, syncope or near syncope, although he did become acutely lightheaded when sitting upright in bed today. Appetite and weight have been stable. Notes no melena, hematochezia, dysuria, or hematuria. Notes no back or abdominal pain. ALLERGIES: BACTRIM. MEDICATIONS PRIOR TO HOSPITALIZATION: Warfarin, sotalol 80 mg twice per day, aspirin 81 mg per day, and atorvastatin 20 mg p.o. every day. PAST SURGICAL HISTORY: As described notable for endovascular repair of the descending thoracic aorta with left subclavian bypass in June 2016 and umbilical hernia repair. FAMILY HISTORY: Positive for possible heart disease. SOCIAL HISTORY: The patient is a nonsmoker since 1965. Uses occasional alcoholic beverages including the day prior to the hospitalization. PHYSICAL EXAMINATION: GENERAL: The patient is a pleasant, age-appropriate male, currently denying any acute distress, though becomes lightheaded on sudden standing. VITAL SIGNS: Heart rates remained significantly elevated with patient in an atrial flutter with rapid ventricular response. HEENT: Normocephalic and atraumatic. Nares without discharge. Throat was clear. NECK: Supple without thyromegaly or lymphadenopathy. There is no jugular venous distention at 30 degrees. LUNGS: Reveal mildly diminished breath sounds, but are clear. CARDIOVASCULAR: Tachycardic. There is no S3 gallop. ABDOMEN: Soft and nontender. There is no palpable hepatosplenomegaly. EXTREMITIES: Without cyanosis or clubbing. There is no peripheral edema. There are intact distal pulses. LABORATORY DATA: White cell count 7.4 and hemoglobin is 13.8. INR is 2.2. Sodium is 136, potassium is 3.5, chloride is 105, bicarbonate is 25, BUN is 14, and creatinine is 0.64. EKG done in the Emergency Room last night demonstrates atrial flutter at a rate of 143. Telemetry demonstrates persistent atrial flutter with rapid ventricular response, 2:1 conduction or greater. IMPRESSION: An 81-year-old male with complex history as noted above with a history of paroxysmal atrial fibrillation/flutter on chronic sotalol therapy with recent lapse of greater than 2-3 days with a poor control of heart rate. He has a pacemaker in place for tachybrady syndrome. PLAN: Will be to increase sotalol to 120 mg twice per day and give a dose at this time. Potassium has been supplemented and the patient will be referred for a synchronized electrical cardioversion this afternoon, rate and rhythm control. Arrangements have been made. The patient remains n.p.o. MTDD
--- NOTE | 2017-09-07 14:14 | [facility] Post Operative Brief Note ---
Immediate Operative Summary Operative Date Sep 07, 2017. Pre-Operative Diagnosis Atrial Flutter Post-Operative Diagnosis Successful DCCV Procedure(s) Performed External DCCV Surgeon Dr. Christian Lopez Certified Personal Finance Counselor Surgeon(s) None Estimated Blood Loss 0 Findings Successful DCCV with 125J Specimens none Anesthesia Per Anesthesiology Complication(s) None Disposition laboratory chemist holding
[2017-09-07] MEDS ORDERED: LIDOCAINE HCL 2% 2 ML VIAL (20MG/ML) ONE (14:28)
[2017-09-07] MEDS ORDERED: NEOSTIGMINE METHYLSULFATE 5 MG/5 ML SYR ONE ×2 (14:28)
[2017-09-07] MEDS ORDERED: PHENYLEPHRINE 100MCG/ML 5ML SYR ONE (14:28)
[2017-09-07] MEDS ORDERED: PROPOFOL IV EMULSION 10 MG/ML 20 ML VIAL IV ONE (14:28)
--- NOTE | 2017-09-07 15:00 | CARDIOVERSION ---
DATE OF OPERATION: 09/07/2017 PROCEDURE: External direct current cardioversion. INDICATION: Atrial flutter with rapid ventricular response. COMPLICATIONS: None. ANESTHESIA: Conscious sedation provided by the anesthesia service. BLOOD LOSS: None. PROCEDURAL SUMMARY: The patient was brought to the cardiac catheterization lab in the usual fasting state. Defibrillator patch was placed in the anterior and position. Monitor confirmed atrial flutter with rapid ventricular response at a rate of approximately 147 beats per minute. Conscious sedation administered via the anesthesia service was propofol. When adequate sedation was achieved, the defibrillator was sent to the QRS complex. The patient was initially shocked with 50 joules. This did not convert him to sinus rhythm. A second shot was delivered at 125 joules. The patient was successfully converted to sinus rhythm with intermittent ventricular pacing. No complications. The patient tolerated the procedure well. CONCLUSION: Successful external direct current cardioversion from atrial flutter to sinus rhythm with 125 joules. No complications. I attest to the content of the Intraoperative Record and any orders documented therein. Any exception s are noted below.
--- NOTE | 2017-09-07 15:41 | Anesthesiology Progress Note ---
Anesthesia Post Op Note Date & Time Sep 07, 2017 at 15:41 Vital Signs Pain Intensity: 0 Vital Signs Past 12 Hours Date Time Temp Pulse Resp B/P (MAP) Pulse Ox O2 Delivery O2 Flow Rate FiO2 09/07/17 14:45 79 18 108/70 (83) 96 Room Air 09/07/17 14:35 71 16 81/59 (66) 95 Room Air 09/07/17 14:30 74 20 107/74 (85) 96 Room Air 09/07/17 14:30 69 16 81/59 (66) 95 Room Air 09/07/17 14:25 66 16 89/47 (61) 95 Room Air 09/07/17 14:23 66 16 83/42 98 Nasal Cannula 4 09/07/17 14:20 62 16 78/52 98 Nasal Cannula 4 09/07/17 14:17 62 16 80/55 98 Nasal Cannula 4 09/07/17 14:13 69 16 76/52 98 Nasal Cannula 4 09/07/17 14:11 69 16 95/64 98 Nasal Cannula 4 09/07/17 14:10 79 16 94/64 98 Nasal Cannula 4 09/07/17 14:09 108 16 102/78 98 Nasal Cannula 4 09/07/17 14:08 133 16 97/78 98 Nasal Cannula 4 09/07/17 12:00 Room Air 09/07/17 11:56 36.9 138 18 94/62 (73) 96 09/07/17 09:13 128/78 (95) 09/07/17 08:57 104/72 (83) 09/07/17 08:56 74/52 (59) 09/07/17 08:45 89/65 (73) 09/07/17 08:06 91/62 (72) 09/07/17 08:00 Room Air 09/07/17 07:22 36.5 135 16 99/67 (78) 93 09/07/17 04:33 137 102/63 09/07/17 04:00 Room Air 09/07/17 03:48 36.6 137 17 102/63 (76) 93 Room Air Notes Mental Status: alert / awake / arousable, participated in evaluation Pt Amnestic to Procedure: Yes Nausea / Vomiting: adequately controlled Pain: adequately controlled Airway Patency, RR, SpO2: stable & adequate BP & HR: stable & adequate Hydration State: stable & adequate Anesthetic Complications: no major complications apparent
[2017-09-07] MEDS ORDERED: WARFARIN SOD 5 MG TAB PO SCH (16:00)
--- NOTE | 2017-09-07 19:32 | Progress Note ---
Medicine Progress Note Date & Time of Visit: Sep 07, 2017 at 19:18. Subjective Pt was seen and examined Sitting in bed with no distress Pt said that he feels fine Denies any chest pain, palpitation, dizziness and SOB Objective Last 8 Hrs Date Time Temp Pulse Resp B/P (MAP) Pulse Ox O2 Delivery O2 Flow Rate FiO2 09/07/17 16:05 36.7 82 18 103/68 (80) 95 Room Air 09/07/17 16:00 Room Air 09/07/17 14:45 79 18 108/70 (83) 96 Room Air 09/07/17 14:35 71 16 81/59 (66) 95 Room Air 09/07/17 14:30 74 20 107/74 (85) 96 Room Air 09/07/17 14:30 69 16 81/59 (66) 95 Room Air 09/07/17 14:25 66 16 89/47 (61) 95 Room Air 09/07/17 14:23 66 16 83/42 98 Nasal Cannula 4 09/07/17 14:20 62 16 78/52 98 Nasal Cannula 4 09/07/17 14:17 62 16 80/55 98 Nasal Cannula 4 09/07/17 14:13 69 16 76/52 98 Nasal Cannula 4 09/07/17 14:11 69 16 95/64 98 Nasal Cannula 4 09/07/17 14:10 79 16 94/64 98 Nasal Cannula 4 09/07/17 14:09 108 16 102/78 98 Nasal Cannula 4 09/07/17 14:08 133 16 97/78 98 Nasal Cannula 4 09/07/17 12:00 Room Air 09/07/17 11:56 36.9 138 18 94/62 (73) 96 Physical Exam: General- No acute distress Head- atraumatic Eyes- PERRL, EOMI ENT- oropharynx clear Neck- supple, no JVD Lungs- No wheezing Heart- regular rhythm Abdomen- normal bowel sounds, soft Extremities- no calf tenderness Neuro- alert, oriented x 3; PERRL Skin- warm & dry Laboratory Results: Last 24 Hours Test 09/06/17 19:31 09/06/17 19:48 09/06/17 22:25 09/06/17 23:05 White Blood Count 9.25 K/uL Red Blood Count 4.64 M/uL Hemoglobin 15.4 g/dL Hematocrit 44.7 % Mean Corpuscular Volume 96.3 fL Mean Corpuscular Hemoglobin 33.2 pg Mean Corpuscular Hemoglobin Concent 34.5 g/dl Platelet Count 138 K/uL Mean Platelet Volume 10.1 fL Neutrophils (%) (Auto) 62.6 % Lymphocytes (%) (Auto) 18.2 % Monocytes (%) (Auto) 18.4 % Eosinophils (%) (Auto) 0.5 % Basophils (%) (Auto) 0.1 % Neutrophils # (Auto) 5.79 K/uL Lymphocytes # (Auto) 1.68 K/uL Monocytes # (Auto) 1.70 K/uL Eosinophils # (Auto) 0.05 K/uL Basophils # (Auto) 0.01 K/uL RDW Standard Deviation 47.7 fL RDW Coefficient of Variation 13.6 % Immature Granulocyte % (Auto) 0.2 % Immature Granulocyte # (Auto) 0.02 K/uL Prothrombin Time 26.4 SECONDS Prothromb Time International Ratio 2.6 Activated Partial Thromboplast Time 38.7 SECONDS Partial Thromboplastin Ratio 1.5 Sodium Level 134 mmol/L Potassium Level 4.0 mmol/L Chloride Level 104 mmol/L Carbon Dioxide Level 24 mmol/L Anion Gap 6.0 mmol/L Blood Urea Nitrogen 16 mg/dl Creatinine 0.77 mg/dl Est Creatinine Clear Calc Drug Dose 88.9 ml/min Estimated GFR () 97.3 Estimated GFR (Non- 83.9 BUN/Creatinine Ratio 21.2 Random Glucose 120 mg/dl Calcium Level 8.7 mg/dl Magnesium Level 1.8 mg/dl Thyroid Stimulating Hormone (TSH) 1.380 uIu/ml Free Thyroxine 1.13 ng/dl Bedside Troponin I < 0.030 ng/ml Urine Color YELLOW Urine Appearance CLEAR Urine pH 7.0 Urine Specific [place] 1.017 Urine Protein TRACE Urine Glucose (UA) NEG Urine Ketones 2+ Urine Occult Blood 2+ Urine Nitrite NEG Urine Bilirubin NEG Urine Urobilinogen NEG Urine Leukocyte Esterase NEG Urine WBC (Auto) 1-5 /hpf Urine RBC (Auto) >30 /hpf Urine Hyaline Casts (Auto) 1-5 /lpf Urine Epithelial Cells (Auto) 0-5 /lpf Urine Bacteria (Auto) NEG Influenza Type A (RT-PCR) Neg for Influ A Influenza Type A Antigen Neg for Influ A Influenza Type B Antigen Neg for Influ B Influenza Type B (RT-PCR) Neg for Influ B Test 09/07/17 07:18 White Blood Count 7.48 K/uL Red Blood Count 4.21 M/uL Hemoglobin 13.8 g/dL Hematocrit 40.8 % Mean Corpuscular Volume 96.9 fL Mean Corpuscular Hemoglobin 32.8 pg Mean Corpuscular Hemoglobin Concent 33.8 g/dl RDW Standard Deviation 48.4 fL RDW Coefficient of Variation 13.6 % Platelet Count 124 K/uL Mean Platelet Volume 10.0 fL Prothrombin Time 23.2 SECONDS Prothromb Time International Ratio 2.2 Sodium Level 136 mmol/L Potassium Level 3.5 mmol/L Chloride Level 105 mmol/L Carbon Dioxide Level 25 mmol/L Anion Gap 7.0 mmol/L Blood Urea Nitrogen 14 mg/dl Creatinine 0.64 mg/dl Est Creatinine Clear Calc Drug Dose 106.3 ml/min Estimated GFR () 104.9 Estimated GFR (Non- 90.5 BUN/Creatinine Ratio 22.3 Random Glucose 110 mg/dl Calcium Level 8.2 mg/dl Magnesium Level 1.9 mg/dl Assessment & Plan Atrial Flutter with RVR 2:1 S/P successful cardioversion Rate control on NSR Cardiology on board Sotalol increased to 120mg BID Continue Coumadin INR therapeutic DYSLIPIDEMIA Continue lipitor HISTORY OF THORACIC AORTIC ANEURYSM S/p endovascular repair of thoracic aortic aneurysm June, stable HX CAD continue ASA and lipitor Stable DVT PROPHYLAXIS On coumadin (INR 2.2) CODE STATUS FULL CODE DISPOSITION Continue monitor in tele Consultants: cardiology Current Inpatient Medications: Current Inpatient Medications Medications (Trade) Dose Ordered Sig/Shanice Route Start Time Stop Time Status Last Admin Dose Admin Acetaminophen (Tylenol Tab) 650 mg Q4H PRN PO 09/06/17 22:15 10/06/17 22:14 Ondansetron HCl (Zofran Inj) 4 mg Q6H PRN IV 09/06/17 22:15 10/06/17 22:14 Aspirin (Ecotrin Tab) 81 mg DAILY PO 09/07/17 09:00 10/07/17 08:59 09/07/17 08:02 81 MG Atorvastatin Calcium (Lipitor Tab) 20 mg DAILY PO 09/07/17 09:00 10/07/17 08:59 09/07/17 08:03 20 MG Warfarin Sodium (Coumadin Tab) 10 mg [id number]@1600 PO 09/07/17 16:00 10/07/17 15:59 09/07/17 15:14 10 MG Warfarin Sodium (Coumadin Tab) 5 mg Fr@1600 PO 09/09/17 16:00 10/09/17 15:59 Sodium Chloride 1,000 ml @ 75 mls/hr [id number] IV 09/06/17 22:30 10/06/17 22:29 09/07/17 12:18 75 MLS/HR Magnesium Hydroxide (Milk Of Magnesia Susp) 30 ml Q12H PRN PO 09/06/17 23:15 10/06/17 23:14 09/07/17 15:14 30 ML Miscellaneous (Iv Fluids Completed) 1 ea PRN PRN N/A 09/06/17 23:45 09/06/18 23:44 Sotalol HCl (Betapace Tab) 120 mg BID PO 09/07/17 21:00 10/07/17 08:59
[2017-09-07] MEDS: SOTALOL HCL 80 MG TAB PO SCH (20:03)
[2017-09-07] MEDS ORDERED: NURSING VERBAL MED ORDER ONE (20:45)
[2017-09-08 04:00] VITALS: BP 105/68; PULSE 69; TEMP 37; O2SAT 94
[2017-09-08 07:22] LABS: INR 1.9 (0.9-1.1); PROTHROMBIN TIME (PATIENT) 20.2 SECONDS (9.0-12.0)
[2017-09-08] MEDS: SOTALOL HCL 80 MG TAB PO SCH (07:35)
[2017-09-08] MEDS: ASPIRIN 81 MG ECTAB PO SCH (07:36)
[2017-09-08] MEDS: ATORVASTATIN 20 MG TAB PO SCH (07:36)
[2017-09-08 07:43] LABS: BUN/CREATININE RATIO 21.9 (10-20); CALCIUM 8.1 mg/dl (8.5-10.1); CREATININE 0.65 mg/dl (0.60-1.40); POTASSIUM 4.1 mmol/L (3.5-5.1)
[2017-09-08 07:56] VITALS: BP 118/74; PULSE 67; TEMP 36.7; O2SAT 93
--- NOTE | 2017-09-08 10:14 | Progress Note ---
Medicine Progress Note Date & Time of Visit: Sep 08, 2017 at 10:10. Subjective Pt was seen and examined Lying in bed with no distress Pt said that he feels fine Denies any chest pain, palpitation and SOB Objective Last 8 Hrs Date Time Temp Pulse Resp B/P (MAP) Pulse Ox O2 Delivery O2 Flow Rate FiO2 09/08/17 08:00 Room Air 09/08/17 07:56 36.7 67 18 118/74 (89) 93 Room Air 09/08/17 04:00 37.0 69 18 105/68 (80) 94 Room Air 09/08/17 04:00 Room Air Physical Exam: General- No acute distress Head- atraumatic Eyes- PERRL, EOMI ENT- oropharynx clear Neck- supple, no JVD Lungs- No wheezing Heart- regular rhythm Abdomen- normal bowel sounds, soft Extremities- no calf tenderness Neuro- alert, oriented x 3; PERRL Skin- warm & dry Laboratory Results: Last 24 Hours Test 09/08/17 07:00 Prothrombin Time 20.2 SECONDS Prothromb Time International Ratio 1.9 Sodium Level 137 mmol/L Potassium Level 4.1 mmol/L Chloride Level 106 mmol/L Carbon Dioxide Level 25 mmol/L Anion Gap 6.0 mmol/L Blood Urea Nitrogen 14 mg/dl Creatinine 0.65 mg/dl Est Creatinine Clear Calc Drug Dose 104.5 ml/min Estimated GFR () 104.3 Estimated GFR (Non- 90.0 BUN/Creatinine Ratio 21.9 Random Glucose 89 mg/dl Calcium Level 8.1 mg/dl Assessment & Plan Atrial Flutter with RVR 2:1 S/P successful cardioversion Rate control on NSR No arrhythmia seen on tele monitor overnight Cardiology on board Sotalol increased to 120mg BID Continue Coumadin INR 1.9 Continue follow with the coag clinic DYSLIPIDEMIA Continue lipitor HISTORY OF THORACIC AORTIC ANEURYSM S/p endovascular repair of thoracic aortic aneurysm June, stable HX CAD continue ASA and lipitor Stable DVT PROPHYLAXIS On coumadin (INR 1.9) CODE STATUS FULL CODE DISPOSITION Will discharge home today if OK by mineral surveying technician: cardiology Current Inpatient Medications: Current Inpatient Medications Medications (Trade) Dose Ordered Sig/Shanice Route Start Time Stop Time Status Last Admin Dose Admin Acetaminophen (Tylenol Tab) 650 mg Q4H PRN PO 09/06/17 22:15 10/06/17 22:14 Ondansetron HCl (Zofran Inj) 4 mg Q6H PRN IV 09/06/17 22:15 10/06/17 22:14 Aspirin (Ecotrin Tab) 81 mg DAILY PO 09/07/17 09:00 10/07/17 08:59 09/08/17 07:36 81 MG Atorvastatin Calcium (Lipitor Tab) 20 mg DAILY PO 09/07/17 09:00 10/07/17 08:59 09/08/17 07:36 20 MG Warfarin Sodium (Coumadin Tab) 10 mg [id number]@1600 PO 09/07/17 16:00 10/07/17 15:59 09/07/17 15:14 10 MG Warfarin Sodium (Coumadin Tab) 5 mg Fr@1600 PO 09/09/17 16:00 10/09/17 15:59 Magnesium Hydroxide (Milk Of Magnesia Susp) 30 ml Q12H PRN PO 09/06/17 23:15 10/06/17 23:14 09/07/17 15:14 30 ML Miscellaneous (Iv Fluids Completed) 1 ea PRN PRN N/A 09/06/17 23:45 09/06/18 23:44 Sotalol HCl (Betapace Tab) 120 mg BID PO 09/07/17 21:00 10/07/17 08:59 09/08/17 07:35 120 MG
[2017-09-08 12:04] VITALS: BP 105/70; PULSE 63; TEMP 36.9; O2SAT 96
--- NOTE | 2017-09-08 12:27 | CARDIOLOGY PROGRESS NOTE ---
DATE: 09/08/2017 CARDIOLOGY CONSULTATION FOLLOWUP NOTE The patient was seen and examined. Chart, medications, and telemetry were reviewed. SUBJECTIVE: The patient feels well this morning. Notes no complaints. Underwent successful synchronized electrical cardioversion yesterday afternoon with conversion to sinus rhythm. He has had no disruption in rhythm. He has been ambulatory in the hallway. Notes no chest pain or discomfort. OBJECTIVE: VITAL SIGNS: Heart rate 67 and blood pressure is 118/74. NECK: Thin. There is no jugular venous distention. There are no carotid bruits. LUNGS: Clear to auscultation with good aeration at the bases. CARDIOVASCULAR: Regular with a grade 1/6 systolic murmur. There is no diastolic murmur. ABDOMEN: Soft and nontender. EXTREMITIES: Without cyanosis or clubbing. There is no peripheral edema. There are intact distal pulses. DATA: EKG this morning demonstrates atrial paced rhythm at a rate of 64 with a prolonged AV conduction. QT corrected is 462. IMPRESSION: An 81-year-old male with a history of paroxysmal atrial flutter, undergoing successful synchronized cardioversion day prior. He is maintained in sinus rhythm. Would plan on discharging him today at increased dosing of sotalol 120 mg twice per day with planned followup with cardiology in the next 3 weeks' time.
[2017-09-08 12:56] VITALS: BP 105/70; PULSE 63; TEMP 36.9; O2SAT 96
[2017-09-08] MEDS ORDERED: BTP80 PO ×2 (13:15)
--- NOTE | 2017-09-08 13:37 | Discharge Instructions ---
Discharge Instructions Date of Service Sep 08, 2017. Admission Reason for Admission: Tachycardia Discharge Discharge Diagnosis / Problem: Atrial Fluter with RVR, Dyslipidemia Discharge Goals Goal(s): Decrease discomfort, Improve disease control Activity Recommendations Activity Limitations: resume your previous activity (as tolerated) . Instructions / Follow-Up Instructions / Follow-Up Call to schedule a follow up appointment with your primary care provider within 1 week Follow up with your cardiology Dr. Nava on 09/29 @ 1:15 PM Continue follow with the Coumadin clinic (INR 1.9 today) Fall precaution Current Hospital Diet Patient's current hospital diet: AHA Diet (Heart Healthy) Discharge Diet Recommended Diet: AHA Diet (Heart Healthy) Procedures Procedures Performed: External DCCV Pending Studies Studies pending at discharge: no Medical Emergencies . Who to Call and When: Medical Emergencies: If at any time you feel your situation is an emergency, please call 911 immediately. . Non-Emergent Contact Non-Emergency issues call your: Primary Care Provider Call Non-Emergent contact if: you have any medication questions . . "Provider Documentation" section prepared by Ranjeet Tse. . VTE Core Measure Inpt VTE Proph given/why not?: Warfarin (Coumadin)
[2017-09-09] MEDS ORDERED: MRLP17X PO (12:47)
[2017-09-09] MEDS ORDERED: GARL1TAB12 PO (12:47)
[2017-09-09] MEDS ORDERED: WARFARIN SOD 5 MG TAB PO SCH (16:00)
[2017-09-09] MEDS ORDERED: ASPI81TA28 PO (16:11)
[2017-09-09] MEDS ORDERED: ATOR-22 PO (16:11)
[2017-09-09] MEDS ORDERED: SOTA80TA PO (22:00)
[2017-09-09] MEDS ORDERED: CMD5 PO (22:25)
[2017-09-09] MEDS ORDERED: WARF5TAB90 PO (22:25)
--- NOTE | 2017-09-10 07:44 | Discharge Summary ---
Discharge Summary Date of Service Sep 10, 2017. Discharge Summary Admission Date: Sep 06, 2017 at 22:22 Discharge Date: Sep 08, 2017 Discharge Disposition: Home Principal Diagnosis: Atrial Flutter with RVR 2:1 Secondary Diagnoses/Problems: HISTORY OF THORACIC AORTIC ANEURYSM DYSLIPIDEMIA CAD Procedures: Cardiovertion Consultations: cardiology Medication Reconciliation Changed Medications: Sotalol Hcl (Sotalol Hcl) 80 Mg Tab 120 MG PO BID for 30 Days, #90 TAB (Changed from: 80 MG) Continued Medications: Aspirin (Aspirin Ec) 81 Mg Tab 81 MG PO DAILY Atorvastatin (Lipitor) 20 Mg Tab 20 MG PO DAILY, TAB Garlic (Sm Garlic) 500 Mg Tab 500 MG PO DAILY Polyethylene (Miralax) 17 Gm Pow 17 GM PO DAILY PRN for Constipation Warfarin Sod (Coumadin) 5 Mg Tab 10 MG PO 6XWK TAKE 10 MG EVERY TUESDAY,TUESDAY,TUESDAY,TUESDAY,TUESDAY AND TUESDAY OR OTHERWISE DIRECTED TO TAKE BY ANTICOAGULATION CLINIC/MD Warfarin Sodium (Coumadin) 5 Mg Tab 5 MG PO WK, TAB TAKE 5 MG EVERY TUESDAY OR OTHERWISE DIRECTED TO TAKE BY ANTICOAGULATION CLINIC/MD Admission Information HPI (per Admitting provider): Pt is 81 y/o M with PMH tachy-pete syndrome with pacer placed 06/2017, hx thoracic aortic aneurysm s/p repair June 2016, CAD on cardiac cath 2015, hx atrial fibrillation presented to ER with c/o not feeling well and tachycardia. Pt states that yesterday he started feeling fatigued, chills, and started with VALLES and felt like he was getting the flu. Took temp at home and reported as 97F. Reports chronic dry cough in mornings for >6 months that resolves throughout the day, denies any worsening cough. Today some nausea. Ate one taco today, didn't drink much. States today increased VALLES described as throbbing from top of head to neck and felt like heart beating in his head. He reports taking his pulse and was elevated and came to ER. He reports taking morning meds, but didn't take his night meds. Pt reports drinking 1 shot of hard liquor daily. Hx influenza vaccine reported by pt a couple of weeks ago. Hx ECHO 06/2017: EF: 55-60%. Denies diaphoresis, V/D/C,dizziness, syncope, vision changes, neck pain, CP, SOB, orthopnea, palpitations, sore throat, choking, otalgia, rhinorrhea, abdominal pain, paresthesias, weakness, extremity weakness, extremity edema, rashes, urinary symptoms. Denies hx CHF. In ER pt tachy 140-160. EKG: sinus tachy rate 143. INR: 2.6. Magnesium: 1.8, Neg POC troponin, no leukocytosis. TSH: 1.38. Negative CT head, CXR cardiomegaly , no infiltrate. BP initially 160/125 down to 123/89. Temp: 37.6C. Pt given his night time dose of sotalol 80mg po and given dose Lopressor 2.5mg IV, remained tachy 140. Pt reports VALLES and pounding heartbeat sensation in head has resolved. ER contacted Dr Lopez recommend night dose of his sotalol and Lopressor trial & had pacer interrogation. Physical Exam (per Admitting): General Appearance: WD/WN, no apparent distress Head: normocephalic, atraumatic Eyes: normal inspection, PERRL, EOMI, sclerae normal ENT: pharynx normal, + pertinent finding (hard of hearing, mucous membranes moist) Neck: supple, no JVD, trachea midline Respiratory/Chest: chest non-tender, lungs clear, normal breath sounds, no respiratory distress, no accessory muscle use Cardiovascular: no murmur, normal peripheral pulses, + tachycardia (sounds regular) Abdomen/GI: normal bowel sounds, non tender, soft Extremities/Musculoskelatal: normal inspection, no calf tenderness, normal capillary refill, no pedal edema, normal range of motion, non-tender Neurologic/Psych: alert, normal mood/affect, oriented x 3 Skin: normal color, warm/dry, no rash Hospital Course Atrial Flutter with RVR 2:1 S/P successful cardioversion Rate control on NSR No arrhythmia seen on tele monitor overnight Cardiology on board Sotalol increased to 120mg BID Continue Coumadin INR 1.9 Continue follow with the coag clinic DYSLIPIDEMIA Continue lipitor HISTORY OF THORACIC AORTIC ANEURYSM S/p endovascular repair of thoracic aortic aneurysm June, stable HX CAD continue ASA and lipitor Stable DVT PROPHYLAXIS On coumadin (INR 1.9) CODE STATUS FULL CODE DISPOSITION Will discharge home today if OK by cardiology Total time spent on discharge = 35 minutes This includes examination of the patient, discharge planning, medication reconciliation, and communication with other providers. Discharge Instructions Discharge Instructions Date of Service Sep 08, 2017. Admission Reason for Admission: Tachycardia Discharge Discharge Diagnosis / Problem: Atrial Fluter with RVR, Dyslipidemia Discharge Goals Goal(s): Decrease discomfort, Improve disease control Activity Recommendations Activity Limitations: resume your previous activity (as tolerated) . Instructions / Follow-Up Instructions / Follow-Up Call to schedule a follow up appointment with your primary care provider within 1 week Follow up with your cardiology Dr. Nava on 09/29 @ 1:15 PM Continue follow with the Coumadin clinic (INR 1.9 today) Fall precaution Current Hospital Diet Patient's current hospital diet: AHA Diet (Heart Healthy) Discharge Diet Recommended Diet: AHA Diet (Heart Healthy) Procedures Procedures Performed: External DCCV Pending Studies Studies pending at discharge: no Medical Emergencies . Who to Call and When: Medical Emergencies: If at any time you feel your situation is an emergency, please call 911 immediately. . Non-Emergent Contact Non-Emergency issues call your: Primary Care Provider Call Non-Emergent contact if: you have any medication questions . . "Provider Documentation" section prepared by Ranjeet Tse. . VTE Core Measure Inpt VTE Proph given/why not?: Warfarin (Coumadin)
== END 2017-09-08 13:51 | disposition home or self-care (01) ==
LOC: C.EDB 19:03 → C.2T 22:22 → CANRESERV 22:55 → ENRESERV 22:55 → C.2T 09-07 18:44
PROVIDERS: ADMIT Internal Medicine; ATTEND Internal Medicine
DX: I48.91 Unspecified atrial fibrillation (principal); I48.92 Unspecified atrial flutter; I25.10 Atherosclerotic heart disease of native coronary artery without angina pectoris; R00.0 Tachycardia, unspecified; I44.4 Left anterior fascicular block; E78.5 Hyperlipidemia, unspecified; N40.0 Benign prostatic hyperplasia without lower urinary tract symptoms; Z79.899 Other long term (current) drug therapy; Z79.01 Long term (current) use of anticoagulants; Z79.82 Long term (current) use of aspirin; Z95.0 Presence of cardiac pacemaker

== ENCOUNTER 2017-09-09 20:59 | Inpatient (IN) | payer OTHER ==
[~2017-09-09] VITALS: Ht 182.9 cm; Wt 96.1 kg
[~2017-09-09 20:59] MED LIST changes: +ASPI81TA28 PO; +ATOR-22 PO; +GARL1TAB12 PO; +MRLP17X PO
[2017-09-09] MEDS ORDERED: SOTA80TA PO (22:00)
--- NOTE | 2017-09-09 22:11 | EMERGENCY ROOM VISIT NOTE ---
History Report prepared by Rodolfo: Lionel Steen Under the Supervision of: Dr. Jonnie Osorio M.D. First contact with patient: 21:50 Chief Complaint: TACHYCARDIA Stated Complaint: CARDIAC ASSESSMENT Nursing Triage Summary: Pt states he was here Wed for cardioversion, released yesterday. Today felt his heart start to race again. Denies chest pain or SOB. History of Present Illness The patient is an 81 year old white male with a past medical history of atrial flutter with RVR, tachycardia, LAFB, cardiac pacemaker in place who presents to the ED with a cc of intermittent palpitation beginning three days ago. Pt was here for similar symptoms two days ago and was discharged yesterday. He took his heart rate today, and it was 127. The patient notes his dose of Sotalol was increased to 120mg. Positive two cups of coffee this morning, taking Coumadin, alcoholic beverage today. Negative changes in medication, chest pain, SOB, abdominal pain, swelling in his legs. Source of History: patient Onset: three days ago Position: other (global) Quality: other (palpitation) Timing: intermittent Associated Symptoms: No chest pain, No SOB, No abdominal pain Note: Denies: swelling in legs Review of Systems See HPI for pertinent positives and negatives. A total of ten systems were reviewed and were otherwise negative. Past Medical & Surgical Medical Problems: (1) Atrial flutter with rapid ventricular response (2) BPH (benign prostatic hyperplasia) (3) H/O poliomyelitis (4) History of atrial flutter (5) Kidney stone (6) LAFB (left anterior fascicular block) (7) Nonobstructive atherosclerosis of coronary artery (8) Tachy-pete syndrome (9) Tachycardia Surgical Problems: (1) H/O umbilical hernia repair (2) History of carpal tunnel surgery (3) Hx of cardiac pacemaker (4) S/P thoracic aortic aneurysm repair (5) S/P tonsillectomy Family History FH: cancer SON ( of leukemia) Social History Smoking Status: Never Smoker Drug Use: none Marital Status: Housing Status: lives with family Occupation Status: retired Current/Historical Medications Scheduled Aspirin (Aspirin Ec), 81 MG PO DAILY Atorvastatin (Lipitor), 20 MG PO DAILY Garlic (Sm Garlic), 500 MG PO DAILY Sotalol Hcl (Sotalol Hcl), 80 MG PO BID Warfarin Sod (Coumadin), 10 MG PO [id number] Warfarin Sodium (Coumadin), 5 MG PO WK Scheduled PRN Polyethylene (Miralax), 17 GM PO DAILY PRN for Constipation Allergies Coded Allergies: Sulfamethoxazole w/Trimethoprim (Verified Allergy, Unknown, HIVES, 06/22/17 ) Physical Exam Vital Signs Date Time Temp Pulse Resp B/P (MAP) Pulse Ox O2 Delivery O2 Flow Rate FiO2 09/09/17 23:39 137 109/84 09/09/17 23:30 136 18 109/84 95 Room Air 09/09/17 23:00 134 18 107/89 94 Room Air 09/09/17 21:58 97 Room Air 09/09/17 21:58 97 Room Air 09/09/17 21:30 132 20 110/86 97 Room Air 09/09/17 21:23 96 Room Air 09/09/17 21:08 36.9 116 16 119/63 96 Room Air Physical Exam GENERAL: Awake, alert, well-appearing, NAD HENT: Normocephalic, atraumatic. EYES: Normal conjunctiva. Sclera non-icteric. NECK: Supple. No nuchal rigidity. FROM. RESPIRATORY: CTAB, no rhonchi, wheezing, crackles CARDIAC: Tachy and regular, no MRG ABDOMEN: Soft, NTND, BS+ MSK: No chest wall TTP, no LE edema. Device in left chest wall. NEURO: GCS 15, CN 2-12 intact, moves all 4s on command SKIN: No rash or jaundice noted. Medical Decision & Procedures ER Provider Diagnostic Interpretation: X-ray: Per my interpretation, radiologist review. CHEST ONE VIEW PORTABLE HISTORY: 81 years-old Male CHEST PAIN acute atypical chest pain COMPARISON: Chest radiograph 09/06/2017 TECHNIQUE: Portable AP view of the chest FINDINGS: Cardiac silhouette is again enlarged, unchanged. Unchanged aortic stent graft. Left pectoral pacer is noted with leads appearing intact. There is no pneumothorax or overt pulmonary edema. Right lung is clear. Subsegmental left basilar opacities are noted. Bones appear grossly intact. Degenerative changes of the shoulders and spine. IMPRESSION: 1. Cardiomegaly without overt pulmonary edema. 2. Subsegmental left basilar opacities suggest atelectasis. The above report was generated using voice recognition software. It may contain grammatical, syntax or spelling errors. Electronically signed by: Steve Torres M.D. 09/09/2017 10:28 PM Dictated Date/Time: 09/09/2017 10:27 PM Laboratory Results 09/09/17 22:00 Red Blood Count 4.53, Mean Corpuscular Volume 96.0, Mean Corpuscular Hemoglobin 33.1, Mean Corpuscular Hemoglobin Concent 34.5, Mean Platelet Volume 9.9, Neutrophils (%) (Auto) 58.0, Lymphocytes (%) (Auto) 21.9, Monocytes (%) (Auto) 15.9, Eosinophils (%) (Auto) 3.7, Basophils (%) (Auto) 0.2, Neutrophils # (Auto ) 3.79, Lymphocytes # (Auto) 1.43, Monocytes # (Auto) 1.04, Eosinophils # (Auto ) 0.24, Basophils # (Auto) 0.01 09/09/17 22:00 Test 09/09/17 22:00 White Blood Count 6.53 K/uL (4.8-10.8) Red Blood Count 4.53 M/uL (4.7-6.1) Hemoglobin 15.0 g/dL (14.0-18.0) Hematocrit 43.5 % (42-52) Mean Corpuscular Volume 96.0 fL (80-100) Mean Corpuscular Hemoglobin 33.1 pg (25-34) Mean Corpuscular Hemoglobin Concent 34.5 g/dl (32-36) Platelet Count 146 K/uL (130-400) Mean Platelet Volume 9.9 fL (7.4-10.4) Neutrophils (%) (Auto) 58.0 % Lymphocytes (%) (Auto) 21.9 % Monocytes (%) (Auto) 15.9 % Eosinophils (%) (Auto) 3.7 % Basophils (%) (Auto) 0.2 % Neutrophils # (Auto) 3.79 K/uL (1.4-6.5) Lymphocytes # (Auto) 1.43 K/uL (1.2-3.4) Monocytes # (Auto) 1.04 K/uL (0.11-0.59) Eosinophils # (Auto) 0.24 K/uL (0-0.5) Basophils # (Auto) 0.01 K/uL (0-0.2) RDW Standard Deviation 45.0 fL (36.4-46.3) RDW Coefficient of Variation 13.0 % (11.5-14.5) Immature Granulocyte % (Auto) 0.3 % Immature Granulocyte # (Auto) 0.02 K/uL (0.00-0.02) Prothrombin Time 19.8 SECONDS (9.0-12.0) Prothromb Time International Ratio 1.9 (0.9-1.1) Activated Partial Thromboplast Time 34.0 SECONDS (21.0-31.0) Partial Thromboplastin Ratio 1.3 Anion Gap 6.0 mmol/L (3-11) Est Creatinine Clear Calc Drug Dose 84.4 ml/min Estimated GFR () 95.3 Estimated GFR (Non- 82.2 BUN/Creatinine Ratio 18.8 (10-20) Calcium Level 8.6 mg/dl (8.5-10.1) Phosphorus Level 2.5 mg/dl (2.5-4.9) Magnesium Level 2.2 mg/dl (1.8-2.4) Total Bilirubin 0.6 mg/dl (0.2-1) Direct Bilirubin 0.2 mg/dl (0-0.2) Aspartate Amino Transf (AST/SGOT) 38 U/L (15-37) Alanine Aminotransferase (ALT/SGPT) 43 U/L (12-78) Alkaline Phosphatase 58 U/L (45-117) Pro-B-Type Natriuretic Peptide 592 pg/ml (0-1800) Total Protein 7.2 gm/dl (6.4-8.2) Albumin 3.5 gm/dl (3.4-5.0) Lipase 175 U/L (73-393) Laboratory results reviewed by me Medications Administered Medications (Trade) Dose Ordered Sig/Shanice Route Start Time Stop Time Status Last Admin Dose Admin Sotalol HCl (Betapace Tab) 120 mg NOW ONCE PO 09/09/17 23:15 09/09/17 23:16 DC 09/09/17 23:39 120 MG Metoprolol Tartrate (Lopressor Iv) 5 mg NOW STAT IV 09/09/17 23:04 09/09/17 23:05 DC 09/09/17 23:39 5 MG Sodium Chloride 500 ml @ 50 mls/hr Q10H ONCE IV 09/09/17 23:45 129/17 09:44 09/10/17 00:46 50 MLS/HR ECG Indication: palpitations Rate (beats per minute): 122 Rhythm: other (Ventricular rate) Findings: Q waves (Inferior), T-wave inversion (Inferior), left axis deviation , other (No obvious P-waves seen, normal QRS and QTc) ED Course 2200: The patient was evaluated in room B02. A complete history and physical exam was performed. 2254: I discussed the patient's case with Dr. Nava, [facility]. He suggested giving the patient 5 of Toprol, and he probably needs an ablation. 2301: Upon reexamination, the patient was resting peacefully. I discussed the test results and treatment plan with him. The patient will be evaluated for further management. 2304: I discussed the patient's case with Dr. Bailey, [facility] Hospitalist. The patient will be evaluated for further management and care. Medical Decision The patient is an 81 year old white male with a past medical history of atrial flutter with RVR, tachycardia, LAFB, cardiac pacemaker in place who presents to the ED with a cc of intermittent palpitation beginning three days ago. Differential diagnosis: Etiologies such as premature contractions, electrolyte abnormality, cardiac dysrhythmia, thyroid dysfunction, pulmonary embolism, infection, gastrointestinal, as well as others were entertained. Patient was seen and evaluated at the bedside. Patient did have her recent admission for atrial flutter with RVR status post cardioversion and titration of his sotalol. Patient already does take Coumadin. Patient did have blood work that was completed along with an EKG and chest x-ray. Of note the EKG does not show any apparent P waves. Patient has a ventricular rate in the 120s. Patient's EKG did show some left axis deviation and some Q waves and T- wave inversions. Patient denied any chest pain or shortness of breath. I did discuss the patient with the patient's supervisor force adjustment who is on-call this evening Dr. Nava. He reminded me to make sure to check that the patient had taken his evening and morning dose of sotalol. He stated that we could also give him an IV dose of metoprolol. Patient's blood work was fairly unremarkable. Patient had normal white blood cell count. Patient did not have an elevated BNP. Kidney function normal. Chest x-ray showed cardiomegaly without overt pulmonary edema and likely atelectasis. The patient was ordered his home dose of sotalol as heat or taken this morning but not his evening dose. Patient was also ordered an IV dose of Lopressor. I did speak with the hospitalist who agreed to further evaluate and treat the patient. Patient would be seen and evaluated by cardiology in the morning. Cardiology may discuss a possible ablation. Medication Reconcilliation Current Medication List: was personally reviewed by me Blood Pressure Screening Patient's blood pressure: Normal blood pressure Blood pressure disposition: Did not require urgent referral Consults Time Called: [phone] Consulting Physician: [facility] Returned Call: [phone] I discussed the patient's case with [facility]. He suggested giving the patient 5 of Toprol, and he probably needs an ablation. Additional Consults: Time Called: 2300 Consulted Physician: [facility] Hospitalist Returned Call: [phone] Additional Comments: I discussed the patient's case with [facility] Hospitalist. The patient will be evaluated for further management and care. Impression Primary Impression: Atrial flutter Scribe Attestation The scribe's documentation has been prepared under my direction and personally reviewed by me in its entirety. I confirm that the note above accurately reflects all work, treatment, procedures, and medical decision making performed by me. Departure Information Dispostion Being Evaluated By Hospitalist Referrals Estiven Salcido D.O. (PCP) Patient Instructions My [facility] Problem Qualifiers Primary Impression: Atrial flutter Atrial flutter type: unspecified Qualified Codes: I48.92 - Unspecified atrial flutter
[2017-09-09] MEDS ORDERED: CMD5 PO (22:25)
[2017-09-09] MEDS ORDERED: WARF5TAB90 PO (22:25)
[2017-09-09 22:26] LABS: BASO % 0.2 %; BASO ABS # 0.01 K/uL (0-0.2); COMPLETE YES; EOS % 3.7 %; HEMATOCRIT 43.5 % (42-52); IG% 0.3 %; LYMPH % 21.9 %; LYMPH ABS # 1.43 K/uL (1.2-3.4); MEAN CORPUSCULAR HEMOGLOBIN 33.1 pg (25-34); MEAN CORPUSCULAR HGB CONC 34.5 g/dl (32-36); MEAN PLATELET VOLUME 9.9 fL (7.4-10.4); MONO % 15.9 %; PLATELET COUNT 146 K/uL (130-400); RED BLOOD COUNT 4.53 M/uL (4.7-6.1); WHITE BLOOD COUNT 6.53 K/uL (4.8-10.8)
--- NOTE | 2017-09-09 22:29 | DIAGNOSTIC IMAGING REPORT ---
CHEST ONE VIEW PORTABLE HISTORY: 81 years-old Male CHEST PAIN acute atypical chest pain COMPARISON: Chest radiograph 09/06/2017 TECHNIQUE: Portable AP view of the chest FINDINGS: Cardiac silhouette is again enlarged, unchanged. Unchanged aortic stent graft. Left pectoral pacer is noted with leads appearing intact. There is no pneumothorax or overt pulmonary edema. Right lung is clear. Subsegmental left basilar opacities are noted. Bones appear grossly intact. Degenerative changes of the shoulders and spine. IMPRESSION: 1. Cardiomegaly without overt pulmonary edema. 2. Subsegmental left basilar opacities suggest atelectasis. The above report was generated using voice recognition software. It may contain grammatical, syntax or spelling errors. Electronically signed by: Steve Torres M.D. 09/09/2017 10:28 PM Dictated Date/Time: 09/09/2017 10:27 PM
[2017-09-09 22:36] LABS: INR 1.9 (0.9-1.1); PARTIAL THROMBOPLASTIN RATIO 1.3; PROTHROMBIN TIME (PATIENT) 19.8 SECONDS (9.0-12.0)
[2017-09-09 22:46] LABS: BUN/CREATININE RATIO 18.8 (10-20); CALCIUM 8.6 mg/dl (8.5-10.1); CREATININE 0.81 mg/dl (0.60-1.40); MAGNESIUM 2.2 mg/dl (1.8-2.4)
[2017-09-09 22:49] LABS: PHOSPHORUS 2.5 mg/dl (2.5-4.9)
[2017-09-09] MEDS ORDERED: METOPROLOL TARTRATE 1 MG/ML VIAL IV STA (23:04)
[2017-09-09] MEDS ORDERED: SOTALOL HCL 80 MG TAB PO ONE (23:15)
[2017-09-09] MEDS ORDERED: NITROGLYCERIN 0.4 MG SL PER TAB CHARGE SL PRN (23:45)
[2017-09-09] MEDS ORDERED: ACETAMINOPHEN 325 MG TAB PO PRN (23:45)
[2017-09-09] MEDS ORDERED: SODIUM CHLORIDE 0.9% 1000ML 500 ML IV ONE (23:45)
[2017-09-09] MEDS ORDERED: ONDANSETRON INJ 2 MG/ML 2 ML VIAL IV PRN (23:45)
--- NOTE | 2017-09-09 23:50 | History and Physical ---
History & Physical Date & Time of Service: Sep 09, 2017 at 23:50 Chief Complaint: Cardiac Assessment Primary Care Physician: Estiven Salcido D.O. 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 Patient was advised to increase his sotalol dose to 120mg BID during prior admission but patient wasn't sure of the recommendations and so was taking only 80mg BID. Denies any history of chest pain, SOB, palpitations, nausea, vomiting, dizziness , diaphoresis, orthopnea, PND, leg swelling, fever, chills, abd pain, diarrhea, dysuria, cough. In ED his HR was found to be in 130s but is asymptomatic. 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 14 Status: Chronic (3) History of atrial flutter Permanent Comment: in [facility] and [facility], 2017 with atrial flutter with RVR with spontaneous conversion to sinus rhythm on IV diltiazem Status: Chronic (4) Kidney stone Status: Chronic (5) LAFB (left anterior fascicular block) Status: Chronic (6) Nonobstructive atherosclerosis of coronary artery Permanent Comment: mild nonobstructive coronary atherosclerosis by cardiac catheterization 2015 Status: Chronic (7) Tachy-pete syndrome Status: Chronic Surgical Problems: (1) H/O umbilical hernia repair Status: Chronic (2) History of carpal tunnel surgery Status: Chronic (3) Hx of cardiac pacemaker Status: Resolved (4) S/P thoracic aortic aneurysm repair Permanent Comment: 06/2016; endovascular repair of thoracic aortic aneurysm June, with associated stage left carotid subclavian bypass with 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[place] [facility] [place] Status: Chronic (5) S/P tonsillectomy Status: Chronic Family History FH: cancer SON ( of leukemia) Reviewed as above Social History Smoking Status: Former Smoker Alcohol Use: socially Drug Use: none Marital Status: Occupational Status: retired Allergies Coded Allergies: Sulfamethoxazole w/Trimethoprim (Verified Allergy, Unknown, HIVES, 06/22/17 ) Home Medications Scheduled Aspirin (Aspirin Ec), 81 MG PO DAILY Atorvastatin (Lipitor), 20 MG PO DAILY Garlic (Sm Garlic), 500 MG PO DAILY Sotalol Hcl (Sotalol Hcl), 80 MG PO BID Warfarin Sod (Coumadin), 10 MG PO 6XWK Warfarin Sodium (Coumadin), 5 MG PO WK Scheduled PRN Polyethylene (Miralax), 17 GM PO DAILY PRN for Constipation Review of Systems See HPI for pertinent positives & negatives. A total of 10 systems reviewed and were otherwise negative. Physical Exam Vital Signs Date Time Temp Pulse Resp B/P (MAP) Pulse Ox O2 Delivery O2 Flow Rate FiO2 09/09/17 23:39 137 109/84 09/09/17 23:30 136 18 109/84 95 Room Air 09/09/17 23:00 134 18 107/89 94 Room Air 09/09/17 21:58 97 Room Air 09/09/17 21:58 97 Room Air 09/09/17 21:30 132 20 110/86 97 Room Air 09/09/17 21:23 96 Room Air 09/09/17 21:08 36.9 116 16 119/63 96 Room Air General Appearance: WD/WN, no apparent distress Head: normocephalic, atraumatic Eyes: normal inspection, PERRL, EOMI ENT: normal ENT inspection, hearing grossly normal, + pertinent finding ( hearing aids) Neck: supple, trachea midline Respiratory/Chest: chest non-tender, lungs clear, normal breath sounds, no respiratory distress, no accessory muscle use Cardiovascular: regular rate, rhythm, no edema, no murmur, + tachycardia, + pertinent finding (pacemaker on left side of chest ) Abdomen/GI: normal bowel sounds, non tender, soft, + hernia (abdominal), + pertinent finding (Well healed old surgical scar) Back: normal inspection Extremities/Musculoskelatal: normal inspection, no pedal edema 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, no motor/sensory deficits, alert, normal mood/affect, oriented x 3 Skin: normal color, warm/dry Diagnostics Laboratory Results Results Past 24 Hours Test 09/09/17 22:00 Range/Units White Blood Count 6.53 4.8-10.8 K/uL Red Blood Count 4.53 4.7-6.1 M/uL Hemoglobin 15.0 14.0-18.0 g/dL Hematocrit 43.5 42-52 % Mean Corpuscular Volume 96.0 80-100 fL Mean Corpuscular Hemoglobin 33.1 25-34 pg Mean Corpuscular Hemoglobin Concent 34.5 32-36 g/dl Platelet Count 146 130-400 K/uL Mean Platelet Volume 9.9 7.4-10.4 fL Neutrophils (%) (Auto) 58.0 % Lymphocytes (%) (Auto) 21.9 % Monocytes (%) (Auto) 15.9 % Eosinophils (%) (Auto) 3.7 % Basophils (%) (Auto) 0.2 % Neutrophils # (Auto) 3.79 1.4-6.5 K/uL Lymphocytes # (Auto) 1.43 1.2-3.4 K/uL Monocytes # (Auto) 1.04 0.11-0.59 K/uL Eosinophils # (Auto) 0.24 0-0.5 K/uL Basophils # (Auto) 0.01 0-0.2 K/uL RDW Standard Deviation 45.0 36.4-46.3 fL RDW Coefficient of Variation 13.0 11.5-14.5 % Immature Granulocyte % (Auto) 0.3 % Immature Granulocyte # (Auto) 0.02 0.00-0.02 K/uL Prothrombin Time 19.8 9.0-12.0 SECONDS Prothromb Time International Ratio 1.9 0.9-1.1 Activated Partial Thromboplast Time 34.0 21.0-31.0 SECONDS Partial Thromboplastin Ratio 1.3 Sodium Level 138 136-145 mmol/L Potassium Level 4.0 3.5-5.1 mmol/L Chloride Level 105 98-107 mmol/L Carbon Dioxide Level 27 21-32 mmol/L Anion Gap 6.0 3-11 mmol/L Blood Urea Nitrogen 15 7-18 mg/dl Creatinine 0.81 0.60-1.40 mg/dl Est Creatinine Clear Calc Drug Dose 84.4 ml/min Estimated GFR () 95.3 Estimated GFR (Non- 82.2 BUN/Creatinine Ratio 18.8 10-20 Random Glucose 85 70-99 mg/dl Calcium Level 8.6 8.5-10.1 mg/dl Phosphorus Level 2.5 2.5-4.9 mg/dl Magnesium Level 2.2 1.8-2.4 mg/dl Total Bilirubin 0.6 0.2-1 mg/dl Direct Bilirubin 0.2 0-0.2 mg/dl Aspartate Amino Transf (AST/SGOT) 38 15-37 U/L Alanine Aminotransferase (ALT/SGPT) 43 12-78 U/L Alkaline Phosphatase 58 45-117 U/L Pro-B-Type Natriuretic Peptide 592 0-1800 pg/ml Total Protein 7.2 6.4-8.2 gm/dl Albumin 3.5 3.4-5.0 gm/dl Lipase 175 73-393 U/L Diagnostic Radiology CXR: 1. Cardiomegaly without overt pulmonary edema. 2. Subsegmental left basilar opacities suggest atelectasis. EKG EKG: Atrial Flutter with AV block, Q waves in inferior leads , QTC:430 Impression Assessment and Plan Atrial Flutter RVR: H/O Tachy-pete syndrome S/P pacemaker in Jun 2017 S/P Cardioversion on 09/08/17 and pacemaker interrogation during prior admission Continue Sotolol at increased dose 120mg BID Received a dose of Lopressor 5mg in ED Monitor for QT prolongation Monitor electrolytes Cardiology consulted May need EP study/Ablation Subtherapeutic INR: Continue Coumadin Monitor INR:1.9 today CAD: Continue Aspirin, statins Denies any chest pain HLP: continue statins H/O thoracic aortic aneurysm s/p repair Jun 2016 DVT Px: Coumadin, SCDs Code Status: Full Code Disposition: Monitor in Telemetry VTE Prophylaxis VTE Risk Assessment Done? Y/N: Yes Risk Level: Moderate
[2017-09-10] MEDS ORDERED: POLYETHYLENE (MIRALAX) 17 GM PACK PO PRN
[2017-09-10 00:10] VITALS: O2SAT 95
[2017-09-10 00:30] VITALS: BP 103/81; PULSE 132; TEMP 36.9; Ht 182.9 cm; Wt 96.1 kg
[2017-09-10 04:00] VITALS: BP 105/71; PULSE 132; TEMP 36.8; O2SAT 96
[2017-09-10] MEDS ORDERED: SOTA80TA PO ×6 (07:41→14:27)
[2017-09-10 07:45] LABS: HEMATOCRIT 39.6 % (42-52); MEAN CELL VOLUME 96.1 fL (80-100); MEAN CORPUSCULAR HEMOGLOBIN 33.3 pg (25-34); MEAN CORPUSCULAR HGB CONC 34.6 g/dl (32-36); PLATELET COUNT 143 K/uL (130-400); RED BLOOD COUNT 4.12 M/uL (4.7-6.1); WHITE BLOOD COUNT 5.25 K/uL (4.8-10.8)
[2017-09-10 07:53] LABS: PROTHROMBIN TIME (PATIENT) 21.1 SECONDS (9.0-12.0)
[2017-09-10 08:11] LABS: BUN/CREATININE RATIO 19.4 (10-20); CALCIUM 8.2 mg/dl (8.5-10.1); CREATININE 0.6 mg/dl (0.60-1.40); MAGNESIUM 2.3 mg/dl (1.8-2.4); POTASSIUM 3.9 mmol/L (3.5-5.1)
[2017-09-10] MEDS ORDERED: ATORVASTATIN 20 MG TAB PO SCH (09:00)
[2017-09-10] MEDS ORDERED: SOTALOL HCL 80 MG TAB PO SCH (09:00)
[2017-09-10] MEDS ORDERED: ASPIRIN 81 MG ECTAB PO SCH (09:00)
[2017-09-10] MEDS ORDERED: POTASSIUM CHLORIDE 10 MEQ TABCR PO ONE (10:19)
--- NOTE | 2017-09-10 10:53 | CARDIOLOGY CONSULTATION ---
DATE OF CONSULTATION: 09/10/2017 DATE OF CONSULTATION: 09/10/2017 INDICATIONS: Current atrial flutter. Note, please refer to full consultation of 09/07/2017. HISTORY OF PRESENT ILLNESS: The patient is an 81-year-old male with complex history of: 1. Thoracic aortic aneurysm status post endovascular repair June 2016 with staged left subclavian bypass. 2. Mild nonobstructive coronary disease by cardiac catheterization 2015. 3. Paroxysmal atrial flutter with rapid ventricular response. 4. History of tachybrady syndrome status post dual-chamber pacemaker in June 2017. 5. Underlying issues of abdominal aneurysm, hyperlipidemia. The patient presents now after recent hospitalization and successful synchronized cardioversion having lapsed once again back into atrial flutter with rapid ventricular response last evening. He notes he had missed 2 doses of sotalol upon hospital discharge. He has spontaneously converted to sinus rhythm this morning. He denies any chest pains, dizziness, lightheadedness, syncope or near syncope. Does feel "out of sorts and breathless" when heart is beating 130. Feels comfortable and fine this morning. Notes no other complaints. ALLERGIES: SULFAMETHOXAZOLE WITH TRIAMTERENE. MEDICATIONS: Per reconciliated list. PHYSICAL EXAMINATION: VITAL SIGNS: Heart rate is 68 with a heart rate on presentation of 135. Blood pressure is 105/71. HEAD, EYES, EARS, NOSE, AND THROAT: Normocephalic, atraumatic. Nares without discharge. Throat was clear. NECK: Supple without thyromegaly or lymphadenopathy. There are no carotid bruits. LUNGS: Clear to auscultation. CARDIOVASCULAR EXAMINATION: Regular with a grade 1/6 systolic murmur. ABDOMEN: Soft, nontender. EXTREMITIES: Without cyanosis or clubbing. There is no peripheral edema. There are intact distal pulses. DATA: Telemetry currently reveals sinus rhythm with transient AV atrial pacing after conversion to sinus rhythm. EKG on presentation revealed typical atrial flutter with variable AV block, rate 122. IMPRESSION: An 81-year-old male with paroxysmal atrial flutter with tachybrady syndrome, prior pacemaker insertion. He did note missing 2 doses of sotalol which possibly incited current complaints however this represents multiple episodes of recurrent atrial flutter since initial diagnosis this summer. RECOMMENDATIONS: Continue sotalol 120 mg twice per day, begin potassium chloride 10 mEq once per day in addition to usual medications. We have made arrangements for patient to follow with Dr. Raisa Healy at [facility] in [place] later this month for possible atrial flutter ablation.
[2017-09-10 11:52] VITALS: BP 101/66; PULSE 65; TEMP 37.2; O2SAT 94
--- NOTE | 2017-09-10 13:00 | Progress Note ---
Medicine Progress Note Date & Time of Visit: Sep 10, 2017 at 12:47. Subjective Pt was seen and examined Lying in bed with no distress Pt said that he feels fine He denies any chest pain, palpitation, dizziness and SOB Objective Last 8 Hrs Date Time Temp Pulse Resp B/P (MAP) Pulse Ox O2 Delivery O2 Flow Rate FiO2 09/10/17 12:03 Room Air 09/10/17 11:52 37.2 65 20 101/66 (78) 94 Room Air 09/10/17 08:00 Room Air Physical Exam: General- no acute distress Head- atraumatic Eyes- PERRL, EOMI ENT- oropharynx clear Neck- supple, no JVD Lungs- clear to auscultation Heart- regular rhythm Abdomen- normal bowel sounds, soft Extremities- no calf tenderness Neuro- alert, oriented x 3; PERRL, EOMI Skin- warm & dry Laboratory Results: Last 24 Hours Test 09/09/17 22:00 09/10/17 06:58 White Blood Count 6.53 K/uL 5.25 K/uL Red Blood Count 4.53 M/uL 4.12 M/uL Hemoglobin 15.0 g/dL 13.7 g/dL Hematocrit 43.5 % 39.6 % Mean Corpuscular Volume 96.0 fL 96.1 fL Mean Corpuscular Hemoglobin 33.1 pg 33.3 pg Mean Corpuscular Hemoglobin Concent 34.5 g/dl 34.6 g/dl Platelet Count 146 K/uL 143 K/uL Mean Platelet Volume 9.9 fL 10.0 fL Neutrophils (%) (Auto) 58.0 % Lymphocytes (%) (Auto) 21.9 % Monocytes (%) (Auto) 15.9 % Eosinophils (%) (Auto) 3.7 % Basophils (%) (Auto) 0.2 % Neutrophils # (Auto) 3.79 K/uL Lymphocytes # (Auto) 1.43 K/uL Monocytes # (Auto) 1.04 K/uL Eosinophils # (Auto) 0.24 K/uL Basophils # (Auto) 0.01 K/uL RDW Standard Deviation 45.0 fL 46.5 fL RDW Coefficient of Variation 13.0 % 13.3 % Immature Granulocyte % (Auto) 0.3 % Immature Granulocyte # (Auto) 0.02 K/uL Prothrombin Time 19.8 SECONDS 21.1 SECONDS Prothromb Time International Ratio 1.9 2.0 Activated Partial Thromboplast Time 34.0 SECONDS Partial Thromboplastin Ratio 1.3 Sodium Level 138 mmol/L 139 mmol/L Potassium Level 4.0 mmol/L 3.9 mmol/L Chloride Level 105 mmol/L 108 mmol/L Carbon Dioxide Level 27 mmol/L 26 mmol/L Anion Gap 6.0 mmol/L 5.0 mmol/L Blood Urea Nitrogen 15 mg/dl 12 mg/dl Creatinine 0.81 mg/dl 0.60 mg/dl Est Creatinine Clear Calc Drug Dose 84.4 ml/min 112.2 ml/min Estimated GFR () 95.3 107.8 Estimated GFR (Non- 82.2 93.0 BUN/Creatinine Ratio 18.8 19.4 Random Glucose 85 mg/dl 90 mg/dl Calcium Level 8.6 mg/dl 8.2 mg/dl Phosphorus Level 2.5 mg/dl Magnesium Level 2.2 mg/dl 2.3 mg/dl Total Bilirubin 0.6 mg/dl Direct Bilirubin 0.2 mg/dl Aspartate Amino Transf (AST/SGOT) 38 U/L Alanine Aminotransferase (ALT/SGPT) 43 U/L Alkaline Phosphatase 58 U/L Pro-B-Type Natriuretic Peptide 592 pg/ml Total Protein 7.2 gm/dl Albumin 3.5 gm/dl Lipase 175 U/L Assessment & Plan Atrial Flutter RVR H/O Tachy-pete syndrome S/P pacemaker in Jun 2017 S/P Cardioversion on 09/08/17 Rate control back to NSR Continue Sotolol 120mg BID (again talking to patient to take 120mg sotalol) Cardiology consulted Case discussed with Dr. Nava that agreed to discharge home on Sotalol 120mg BID Plan to have atrial flutter ablation in [facility] later this month Continue Coumadin INR 2.0 today CAD Continue Aspirin, statins Stable HLP: continue statins H/O thoracic aortic aneurysm s/p repair Jun 2016 DVT Px: Coumadin, SCDs Code Status Full Code Disposition: Discharge home today Call to schedule a follow up appointment with your primary care provider within 1 week Follow up with your cardiology Dr. Nava on 09/29 @ 1:15 PM Continue follow with the Coumadin clinic (INR 2.0 today) Consultants: Cardio Current Inpatient Medications: Current Inpatient Medications Medications (Trade) Dose Ordered Sig/Shanice Route Start Time Stop Time Status Last Admin Dose Admin Acetaminophen (Tylenol Tab) 650 mg Q4H PRN PO 09/09/17 23:45 10/09/17 23:44 Ondansetron HCl (Zofran Inj) 4 mg Q6H PRN IV 09/09/17 23:45 10/09/17 23:44 Nitroglycerin (Nitrostat Tab) 0.4 mg UD PRN SL 09/09/17 23:45 10/09/17 23:44 Aspirin (Ecotrin Tab) 81 mg DAILY PO 09/10/17 09:00 10/10/17 08:59 09/10/17 09:41 81 MG Atorvastatin Calcium (Lipitor Tab) 20 mg DAILY PO 09/10/17 09:00 10/10/17 08:59 09/10/17 09:41 20 MG Polyethylene (Miralax Powder Packet) 17 gm DAILY PRN PO 09/10/17 00:00 10/10/17 00:00 Sotalol HCl (Betapace Tab) 120 mg BID PO 09/10/17 09:00 10/10/17 08:59 09/10/17 09:42 120 MG Warfarin Sodium (Coumadin Tab) 5 mg DAILY@16 PO 09/10/17 16:00 10/10/17 15:59 Potassium Chloride (Klor-Con M10) 10 meq DAILY PO 09/11/17 09:00 10/11/17 08:59
--- NOTE | 2017-09-10 13:07 | Discharge Instructions ---
Discharge Instructions Date of Service Sep 10, 2017. Admission Reason for Admission: Atrial Flutter With Rapid Ventricular Response Discharge Discharge Diagnosis / Problem: Atrial Flutter With Rapid Ventricular Response Discharge Goals Goal(s): Decrease discomfort, Improve function, Improve disease control Activity Recommendations Activity Limitations: resume your previous activity (as tolerated) . Instructions / Follow-Up Instructions / Follow-Up Call to schedule a follow up appointment with your primary care provider within 1 week Follow up with your cardiology Dr. Nava on 09/29 @ 1:15 PM Continue follow with the Coumadin clinic (INR 2.0 today) Sotalol increased to 120mg twice a day (next dose will be tonight) Current Hospital Diet Patient's current hospital diet: AHA Diet (Heart Healthy) Discharge Diet Recommended Diet: AHA Diet (Heart Healthy) Pending Studies Studies pending at discharge: no Medical Emergencies . Who to Call and When: Medical Emergencies: If at any time you feel your situation is an emergency, please call 911 immediately. . Non-Emergent Contact Non-Emergency issues call your: Primary Care Provider Call Non-Emergent contact if: you have any medication questions . . "Provider Documentation" section prepared by Ranjeet Tse. . VTE Core Measure Inpt VTE Proph given/why not?: Warfarin (Coumadin)
[2017-09-10 13:27] VITALS: BP 101/66; PULSE 65; TEMP 37.2; O2SAT 94
[2017-09-10] MEDS ORDERED: WARFARIN SOD 5 MG TAB PO SCH (16:00)
[2017-09-11] MEDS ORDERED: POTASSIUM CHLORIDE 10 MEQ TABCR PO SCH (09:00)
--- NOTE | 2017-09-12 08:18 | Discharge Summary ---
Discharge Summary Date of Service Sep 12, 2017. Discharge Summary Admission Date: Sep 09, 2017 at 23:49 Discharge Date: Sep 10, 2017 Principal Diagnosis: Atrial Flutter With Rapid Ventricular Response Secondary Diagnoses/Problems: H/O thoracic aortic aneurysm s/p repair Jun 2016 Dyslipidemia CAD Procedures: CHEST ONE VIEW PORTABLE HISTORY: 81 years-old Male CHEST PAIN acute atypical chest pain COMPARISON: Chest radiograph 09/06/2017 TECHNIQUE: Portable AP view of the chest FINDINGS: Cardiac silhouette is again enlarged, unchanged. Unchanged aortic stent graft. Left pectoral pacer is noted with leads appearing intact. There is no pneumothorax or overt pulmonary edema. Right lung is clear. Subsegmental left basilar opacities are noted. Bones appear grossly intact. Degenerative changes of the shoulders and spine. IMPRESSION: 1. Cardiomegaly without overt pulmonary edema. 2. Subsegmental left basilar opacities suggest atelectasis. The above report was generated using voice recognition software. It may contain grammatical, syntax or spelling errors. Electronically signed by: Steve Torres M.D. 09/09/2017 10:28 PM Dictated Date/Time: 09/09/2017 10:27 PM Consultations: Cardio Medication Reconciliation Continued Medications: Aspirin (Aspirin Ec) 81 Mg Tab 81 MG PO DAILY Atorvastatin (Lipitor) 20 Mg Tab 20 MG PO DAILY, TAB Garlic (Sm Garlic) 500 Mg Tab 500 MG PO DAILY Polyethylene (Miralax) 17 Gm Pow 17 GM PO DAILY PRN for Constipation Sotalol Hcl (Sotalol Hcl) 80 Mg Tab 120 MG PO BID for 30 Days, #90 TAB (This prescription has been renewed) Warfarin Sod (Coumadin) 5 Mg Tab 10 MG PO 6XWK TAKE 10 MG EVERY TUESDAY,TUESDAY,TUESDAY,TUESDAY,TUESDAY AND TUESDAY OR OTHERWISE DIRECTED TO TAKE BY ANTICOAGULATION CLINIC/MD Warfarin Sodium (Coumadin) 5 Mg Tab 5 MG PO WK, TAB TAKE 5 MG EVERY TUESDAY OR OTHERWISE DIRECTED TO TAKE BY ANTICOAGULATION CLINIC/MD Admission Information HPI (per Admitting provider): Patient is a 81 yr male with PMH of Tachy-pete syndrome S/P pacemaker in Jun 2017, H/O thoracic aortic aneurysm s/p repair Jun 2016, CAD s/p cardiac cath 2015, H/O atrial fibrillation/flutter on coumadin who was discharged from [facility] 2 days ago after being treated for atrial flutter RVR with cardioversion, pacemaker interrogation and medication adjustment presents with history of elevated heart rate in 120s while he checked his HR at his residence that prompted him to come to the hospital for further evaluation. Patient was advised to increase his sotalol dose to 120mg BID during prior admission but patient wasn't sure of the recommendations and so was taking only 80mg BID. Denies any history of chest pain, SOB, palpitations, nausea, vomiting, dizziness , diaphoresis, orthopnea, PND, leg swelling, fever, chills, abd pain, diarrhea, dysuria, cough. In ED his HR was found to be in 130s but is asymptomatic. Physical Exam (per Admitting): General Appearance: WD/WN, no apparent distress Head: normocephalic, atraumatic Eyes: normal inspection, PERRL, EOMI ENT: normal ENT inspection, hearing grossly normal, + pertinent finding ( hearing aids) Neck: supple, trachea midline Respiratory/Chest: chest non-tender, lungs clear, normal breath sounds, no respiratory distress, no accessory muscle use Cardiovascular: regular rate, rhythm, no edema, no murmur, + tachycardia, + pertinent finding (pacemaker on left side of chest ) Abdomen/GI: normal bowel sounds, non tender, soft, + hernia (abdominal), + pertinent finding (Well healed old surgical scar) Back: normal inspection Extremities/Musculoskelatal: normal inspection, no pedal edema Neurologic/Psych: oiler bander II-XII nml as tested, no motor/sensory deficits, alert , normal mood/affect, oriented x 3 Skin: normal color, warm/dry Hospital Course Atrial Flutter RVR H/O Tachy-pete syndrome S/P pacemaker in Jun 2017 S/P Cardioversion on 09/08/17 Rate control back to NSR Continue Sotolol 120mg BID (again talking to patient to take 120mg sotalol) Cardiology consulted Case discussed with Dr. Nava that agreed to discharge home on Sotalol 120mg BID Plan to have atrial flutter ablation in [place] possible later this month Continue Coumadin INR 2.0 today CAD Continue Aspirin, statins Stable HLP: continue statins H/O thoracic aortic aneurysm s/p repair Jun 2016 DVT Px: Coumadin, SCDs Code Status Full Code Disposition: Discharge home today Call to schedule a follow up appointment with your primary care provider within 1 week Follow up with your cardiology Dr. Nava on 09/29 @ 1:15 PM Continue follow with the Coumadin clinic (INR 2.0 today) Total time spent on discharge = 35 minutes This includes examination of the patient, discharge planning, medication reconciliation, and communication with other providers. Discharge Instructions Discharge Instructions Date of Service Sep 10, 2017. Admission Reason for Admission: Atrial Flutter With Rapid Ventricular Response Discharge Discharge Diagnosis / Problem: Atrial Flutter With Rapid Ventricular Response Discharge Goals Goal(s): Decrease discomfort, Improve function, Improve disease control Activity Recommendations Activity Limitations: resume your previous activity (as tolerated) . Instructions / Follow-Up Instructions / Follow-Up Call to schedule a follow up appointment with your primary care provider within 1 week Follow up with your cardiology Dr. Nava on 09/29 @ 1:15 PM Continue follow with the Coumadin clinic (INR 2.0 today) Sotalol increased to 120mg twice a day (next dose will be tonight) Current Hospital Diet Patient's current hospital diet: AHA Diet (Heart Healthy) Discharge Diet Recommended Diet: AHA Diet (Heart Healthy) Pending Studies Studies pending at discharge: no Medical Emergencies . Who to Call and When: Medical Emergencies: If at any time you feel your situation is an emergency, please call 911 immediately. . Non-Emergent Contact Non-Emergency issues call your: Primary Care Provider Call Non-Emergent contact if: you have any medication questions . . "Provider Documentation" section prepared by Ranjeet Tse. . VTE Core Measure Inpt VTE Proph given/why not?: Warfarin (Coumadin)
== END 2017-09-10 13:45 | disposition home or self-care (01) | DRG 310 ==
LOC: C.EDB 21:01 → C.2T 23:49 → EDBEDREQ 23:54 → ENRESERV 09-10 00:01 → C.2T 09-10 03:53
PROVIDERS: ADMIT Internal Medicine; ATTEND Internal Medicine
DX: I48.92 Unspecified atrial flutter (principal); Z95.0 Presence of cardiac pacemaker; N40.0 Benign prostatic hyperplasia without lower urinary tract symptoms; I25.10 Atherosclerotic heart disease of native coronary artery without angina pectoris; Z79.01 Long term (current) use of anticoagulants; N20.0 Calculus of kidney; E78.5 Hyperlipidemia, unspecified; I48.0 Paroxysmal atrial fibrillation; Z91.14 Patient's other noncompliance with medication regimen